=== PATIENT | female | born 1955 | race Caucasian/White ===

== ENCOUNTER 2017-09-28 13:34 | Inpatient (IN) | payer BC ==
[~2017-09-28] VITALS: Ht 165.1 cm; Wt 48.7 kg
[2017-09-28 19:38] VITALS: Ht 165.1 cm; Wt 48.7 kg
[2017-09-28 19:42] VITALS: BP 134/70; PULSE 130; RESP 20
[2017-09-28] MEDS ORDERED: VANCOMYCIN IV PER PHARMACY XX SCH (20:00)
[2017-09-28] MEDS ORDERED: ONDANSETRON 4 MG INJ IV PRN (20:00)
[2017-09-28] MEDS ORDERED: NACL 0.9% 3 ML SYG IV SCH ×2 (20:00)
[2017-09-28 20:12] VITALS: PULSE 130
[2017-09-28 20:24] LABS: ABNORMAL IP MESSAGE 1; HEMATOCRIT 24.3 % (37.0-47.0); HEMOGLOBIN 8.3 g/dl (12.0-16.0); MEAN CORPUSCULAR HEMOGLOBIN 27.6 pg (29.0-33.0); MEAN CORPUSCULAR HGB CONC 34.2 g/dl (32.0-37.0); MEAN CORPUSCULAR VOLUME 80.7 fl (82.0-101.0); MEAN PLATELET VOLUME 8.4 fl (7.4-10.4); PLATELET COUNT 635 10^3/UL (140-415); RED BLOOD COUNT 3.01 10^6/ul (4.20-5.40); RED CELL DISTRIBUTION WIDTH 14.6 % (11.5-14.5); WHITE BLOOD COUNT 60.8 10^3/ul (4.8-10.8)
[2017-09-28 20:29] VITALS: BP 134/70; RESP 18
[2017-09-28 20:38] LABS: POSITIVE DIFF @See below
[2017-09-28 20:41] LABS: ALBUMIN 2.3 g/dl (3.3-4.9); ALBUMIN/GLOBULIN RATIO 0.53; BILIRUBIN,INDIRECT 0.1 mg/dl (0-1.1); BILIRUBIN,TOTAL 0.1 mg/dl (0.2-1.3); CALCIUM 7.6 mg/dl (8.4-10.2); CREATININE 0.68 mg/dl (0.44-1.00); MAGNESIUM 1.5 mg/dl (1.7-2.5); PHOSPHORUS 3.7 mg/dl (2.5-4.9); TOTAL PROTEIN 6.6 g/dl (6.1-8.1)
[2017-09-28 20:55] LABS: MONOCYTES % (M) 2 % (0-11); PLATELET ESTIMATE INCREASED
[2017-09-28] MEDS ORDERED: CEFEPIME 1GM/50 ML (PMX) 50 ML IVPB SCH (21:00)
[2017-09-28 21:17] LABS: AADO2 Arterial 56.2 mmHg (7.0-24.0); Arterial COHb 0.2 % (0.0-3.0); Arterial Fraction of Oxyhgb 93.6 % (93.0-99.0); Arterial HCO3 22.7 mmol/L (22.0-26.0); Arterial MetHb 0.1 % (0.0-1.5); Arterial Total Hemglobin 9.6 g/dl (12.0-18.0); MODE ROOM AIR
[2017-09-28] MEDS ORDERED: POTASSIUM CHLORIDE 50 ML IVPB SCH (21:30)
[2017-09-28] MEDS: SOD CHLORIDE 0.9% 1,000 ML IV SCH (21:49)
[2017-09-28] MEDS ORDERED: VANCOMYCIN 1 GM in NS 250 ML IVPB SCH (22:00)
[2017-09-28] MEDS: POTASSIUM CHLORIDE 50 ML IVPB SCH (22:51)
[2017-09-28] MEDS: MEROPENEM 500MG/50 ML (PMX) 50 ML IVPB SCH (22:52)
[2017-09-29] VITALS (13 sets, daily range): BP systolic 119–126; BP diastolic 67–79; PULSE 97–165; RESP 18–20
[2017-09-29] MEDS: POTASSIUM CHLORIDE 50 ML IVPB SCH ×5 (00:03→03:59)
[2017-09-29] MEDS: MEROPENEM 500MG/50 ML (PMX) 50 ML IVPB SCH ×3 (05:34→21:38)
[2017-09-29] MEDS: SOD CHLORIDE 0.9% 1,000 ML IV SCH ×2 (05:37→15:21)
--- NOTE | 2017-09-29 07:34 | HP ---
Date/Time of Note Date/Time of Note DATE: 09/29/17 TIME: 07:31 Assessment/Plan VTE Prophylaxis VTE Prophylaxis Intervention: heparin Lines/Catheters IV Catheter Type (from Nrs): Central Line Central line still needed: Yes Urinary Cath still in place: No Assessment/Plan Assessment/Plan 62-year-old female with a history of hepatitis C, heroin abuse transferred from an outside hospital for sepsis, secondary to lower extremity wound. Patient has also been lethargic. PLAN IV antibiotic Follow-up culture results Lower extremity Doppler ultrasound to evaluate for DVT ID consult Will order a head CT given lethargy. Will check urine toxicology. 12-lead EKG given tachycardia Check ferritin, iron and FOBT to workup anemia Correct electrolytes as needed HPI/ROS Admit Date/Time Admit Date/Time Sep 28, 2017 at 18:48 Hx of Present Illness This is a 62-year-old female with a history of hepatitis C and heroin abuse who initially presented on outside hospital for lower extremity swelling and wound. She was transferred to [facility] for insurance reasons. Patient is currently lethargic and as such she is not able to provide appropriate history. While she was at the outside hospital she had a WBC of 38, 000. Checked labs here which showed a WBC of almost 61,000 with no bands, potassium 3, sodium 133, platelets 635, hemoglobin 8.3. She has been tachycardic with a heart rate as high as 130. On physical examination she has an open with ulcer on her right steven. Left lower extremity is swollen and erythematous. There is also a well-healed surgical scar on her left knee. She also has old dried wound on her left thumb. PMH/Family/Social Social History Smoking Status: Current every day smoker Exam/Review of Systems Vital Signs Vitals Vital Signs Date Time Temp Pulse Resp B/P Pulse Ox O2 Delivery O2 Flow Rate FiO2 09/29/17 04:26 98.5 112 18 122/72 96 09/28/17 19:42 Room Air Intake and Output 09/28/17 09/28/17 09/29/17 15:00 23:00 07:00 Intake Total 610 ml 930 ml Balance 610 ml 930 ml Exam Constitutional: other (Lethargic. Eyes closed.) Head: atraumatic, normocephalic ENMT: other (Poor dentition) Respiratory: clear to auscultation Cardiovascular: other (Tachycardic with regular rhythm) Gastrointestinal: soft Extremities: other (There is an open ulcer on the right steven with a yellowish pus. Left lower extremity is swollen and is erythematous) Neurological: lethargic Labs Result Diagram: 09/28/17201509/28/172015 Medications Medications Current Medications Sodium Chloride (NS) 1,000 ml @ 100 mls/hr Q10H IV Last administered on 05:37; Admin Dose 100 MLS/HR; Start 09/28/17 at 19:48 Ondansetron HCl 4 mg 4 mg Q6H PRN IV NAUSEA AND/OR VOMITING; Start 09/28/17 at 20:00 Vancomycin HCl 100 ml @ 100 mls/hr Q12H IVPB ; Start 09/29/17 at 10:00 Meropenem/Sodium Chloride (Merrem 500mg/50 ml(Pmx)) 50 ml @ 100 mls/hr Q8 IVPB Last administered on 09/29/17 05:34; Admin Dose 100 MLS/HR; Start 09/28/17 at 22:00 Influenza Virus Vaccine (Fluzone) 0.5 ml ONCE ONCE IM* ; Start 09/30/17 at 09: 00; Stop 09/30/17 at 09:01 IMMANUEL HOYT MD Sep 29, 2017 07:34
--- NOTE | 2017-09-29 08:22 | RADRPT ---
PROCEDURE: US bilateral lower extremity veins. CLINICAL INDICATION: Bilateral leg pain and swelling. TECHNIQUE: Multiple longitudinal and transverse images of the bilateral lower extremity veins were obtained with parker scale and color Doppler imaging. The common femoral vein, femoral vein, and popl iteal vein were evaluated. 2D grayscale measurements with compression sonography, color Doppler, and pulsed Doppler with augmentation. COMPARISON: No prior studies are available for comparison. FINDINGS: The bilateral common femoral, femoral and popliteal veins are normally compressible throughout. Col or flow demonstrates normal filling of the vessels. Normal waveforms are visualized and there is no rmal response to augmentation. IMPRESSION: 1. No evidence of deep vein thrombosis involving either lower extremity. RPTAT: QQ .Candido Awad MD, MD Date Time Electronically viewed and signed by .Candido Awad MD, on 09/29/2017 08:21 .R/
[2017-09-29] MEDS ORDERED: SOD CHLORIDE 0.9% 1,000 ML IV ONE (09:00)
[2017-09-29 09:03] LABS: TOTAL IRON BINDING CAPACITY 140 ug/dl (241-421)
[2017-09-29] MEDS: VANCOMYCIN 500MG/NS (PMX) 100 ML IVPB SCH ×2 (09:05→21:37)
[2017-09-29 09:11] LABS: IRON < 10 ug/dl (35-150)
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
--- NOTE | 2017-09-29 13:10 | RADRPT ---
PROCEDURE: CT Brain without contrast. CLINICAL INDICATION: Acute mental status changes TECHNIQUE: A CT of the brain was performed on a [employer] CT scanner utilizing axial imaging f rom the skull base through the vertex without IV contrast. Multiplanar reformatted images were made . Images were reviewed on a PACS workstation. The CTDIvol is 44.46 mGy and the DLP is 720.23 mGycm . DICOM images are available. One of the following 3 dose reduction techniques were used during this CT examination: 1) Automated exposure control 2) Adjustment of the mA +/- kV according to patient size or 3) Use of iterative reconstruction technique COMPARISON: None available FINDINGS: There is no intracranial hemorrhage, mass effect, or midline shift. No extra-axial fluid collection is seen. The ventricles and sulci are age appropriate. Mild diffuse volume loss is present. Subtle decreased attenuation is present in the bilateral subcortical white matter, centrum semiovale and pe riventricular white matter compatible with mild chronic microvascular ischemic disease. Mild vascula r calcifications are present of the bilateral intracranial internal carotid arteries and the vertebr al arteries. The visualized scalp and calvarium are normal. The bilateral orbits are normal. The bilateral parana chloe sinuses, mastoid air cells and middle ear cavities are clear. IMPRESSION: 1. No evidence of acute intracranial hemorrhage, infarcts, or acute intracranial pathology. 2. Mild chronic microvascular ischemic disease and diffuse volume loss. 3. Mild atherosclerotic vascular disease RPTAT: HDC .Avelina Méndez MD, MD Date Time Electronically viewed and signed by .Avelina Méndez MD, MD on 09/29/2017 13:10 .C/
--- NOTE | 2017-09-29 14:09 | CONS ---
DATE OF ADMISSION: 09/28/2017 DATE OF CONSULTATION: 09/29/2017 TYPE OF CONSULTATION: Infectious Disease. REASON FOR CONSULTATION: Antibiotic management. HISTORY OF PRESENT ILLNESS: This lady is a 62-year-old female who is admitted with probable osteomy elitis and is being seen for antibiotic management. Her past problems include: 1. Hepatitis C. 2. History of heroin abuse. She presented to the outside hospital with lower extremity swelling and wound. Transferred to [facility] and a poor historian. In the outlying hospital, her white count was 38,000 but here it is 60.8, H and H 8.3 and 24.3, platelet count of 35,000. BUN and creatinine 16.0/.68, glucose random 73. Sodium 133, potassium 3.0. She has been tachycardic heart rate 130. She has an open ulcer on the right steven left lower extremity swollen and erythematous. There is a surgical sc ar on the left knee. PAST MEDICAL HISTORY: Operations as outlined. FAMILY HISTORY: Noncontributory. SOCIAL HISTORY: She is a poor historian. She probably smoked in the past. She used IV drugs. Дмитрий mcarthur history is unclear. She was never everyday smoker. ALLERGIES: NONE TO PENICILLIN, SULFA OR FOODS. MEDICATIONS: Per chart. REVIEW OF SYSTEMS: As per HPI. PHYSICAL EXAMINATION: GENERAL: The patient is a chronically ill-appearing female who lethargic, in no acute distress. VITAL SIGNS: Stable. She is afebrile. SKIN: Without generalized rash. HEENT: Poor dentition. NECK: Supple. LYMPH NODES: None palpable. CHEST: Decreased breath sounds at the bases. HEART: Without murmur or gallop. She is tachycardic. ABDOMEN: Soft, nontender, without organosplenomegaly or masses. BACK: She has an open ulceration with lower anterior tibial area with yellowish pus left lower extr emity is swollen and erythematous. RECTAL AND GENITAL: Deferred. NEUROLOGIC: No focal neurological abnormality. She is lethargic. IMPRESSION AND PLAN: Patient was started on vancomycin and meropenem for broad spectrum antibiotic coverage. Her white count was 16,000 is probably a leukemoid reaction, although at this level leuke umair has to be considered as well. She had 94 polys, 4 bands, 3 monocytes, no obvious blasts or trul y juvenile forms. BUN and creatinine 16/0.68. Iron is less than 10%. She is iron deficient. Karissa line phosphatase slightly elevated at 143. Chest x-ray: X-ray of her legs showed no DVTs she has C . difficile ordered because of her markedly elevated white count. She has stool cultures, wound cul tures, no blood cultures noted toe going to do 2 sets of blood cultures. As noted, the wound cultur es were done. I will dictate my findings to the hospitalist. I would recommend also hematology/onc ology evaluation. Dictated By: KULWANT RIVERA MD, JD/TENNILLE Conf#: [id number] DID#: [id number]
[2017-09-29 15:35] LABS: ADD UMIC NO; UR ASCORBIC ACID NEGATIVE (NEGATIVE); UR BILIRUBIN (Dip) NEGATIVE (NEGATIVE); UR BLOOD (Dip) NEGATIVE (NEGATIVE); UR CLARITY CLEAR (CLEAR); UR COLOR YELLOW (YELLOW); UR GLUCOSE (Dip) NEGATIVE (NEGATIVE); UR KETONES (Dip) 1+ mg/dL (NEGATIVE); UR LEUKOCYTE ESTERASE (Dip) NEGATIVE Leu/ul (NEGATIVE); UR NITRITE (Dip) NEGATIVE (NEGATIVE); UR SPECIFIC GRAVITY (Dip) 1.017 (1.003-1.030); UR TOTAL PROTEIN (Dip) NEGATIVE (NEGATIVE); UR UROBILINOGEN (Dip) 1+ mg/dL (NEGATIVE)
[2017-09-29 15:57] LABS: BARBITURATES Negative (NEGATIVE); BENZODIAZEPINES Negative (NEGATIVE); CANNABINOIDS Negative (NEGATIVE); COCAINE Negative (NEGATIVE); OPIATES Positive (NEGATIVE)
--- NOTE | 2017-09-29 16:11 | RADRPT ---
Vent Rate: 93 bpm RR Interval: 0 msec NC Interval: 140 msec QRS Duration: 84 msec QT Interval: 374 msec QTC Interval: 465 msec P-R-T [place]: 61 - -22 - 115 degrees Sinus rhythm with sinus arrhythmia with occasional premature ventricular complexes ST amp; T wave abnormality, consider lateral ischemia Prolonged QT Abnormal ECG Electronically Signed By: Perry Vicente [id number]
[2017-09-29] MEDS ORDERED: PENDING SANTYL ORDER FOR WOUND CARE XX PRN (16:30)
[2017-09-29] MEDS: FAMOTIDINE 20 MG INJ IV SCH (16:57)
[2017-09-29] MEDS: POTASSIUM CHLORIDE 20 MEQ POWDER FOR ORAL SOLN PO SCH (16:57)
[2017-09-29] MEDS ORDERED: COLLAGENASE 30 GM TUBE TOP PRN (17:00)
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
[2017-09-30] VITALS (11 sets, daily range): BP systolic 124–145; BP diastolic 72–90; PULSE 92–109; RESP 18–19
[2017-09-30] MEDS: SOD CHLORIDE 0.9% 1,000 ML IV SCH ×2 (01:48→05:59)
[2017-09-30] MEDS: MEROPENEM 500MG/50 ML (PMX) 50 ML IVPB SCH ×2 (05:58→14:18)
[2017-09-30] MEDS ORDERED: INFLUENZA VIRUS VACCINE 0.5 ML (DISPENSING) IM* ONE (09:00)
[2017-09-30] MEDS ORDERED: COLLAGENASE 30 GM TUBE TOP SCH (09:00)
[2017-09-30] MEDS: FAMOTIDINE 20 MG INJ IV SCH (09:02)
[2017-09-30] MEDS: COLLAGENASE 30 GM TUBE TOP SCH (09:02)
[2017-09-30] MEDS: POTASSIUM CHLORIDE 20 MEQ POWDER FOR ORAL SOLN PO SCH ×2 (09:02→21:29)
[2017-09-30] MEDS: ENOXAPARIN 40 MG/0.4 ML SYG SC SCH (09:11)
[2017-09-30 09:48] LABS: HAAIG REFLEX REFLEX FILED
[2017-09-30 09:55] LABS: ABNORMAL IP MESSAGE 1; HEMATOCRIT 26.7 % (37.0-47.0); HEMOGLOBIN 8.9 g/dl (12.0-16.0); MEAN CORPUSCULAR HEMOGLOBIN 27.2 pg (29.0-33.0); MEAN CORPUSCULAR HGB CONC 33.3 g/dl (32.0-37.0); MEAN CORPUSCULAR VOLUME 81.7 fl (82.0-101.0); MEAN PLATELET VOLUME 8.6 fl (7.4-10.4); PLATELET COUNT 570 10^3/UL (140-415); RED BLOOD COUNT 3.27 10^6/ul (4.20-5.40); RED CELL DISTRIBUTION WIDTH 15.5 % (11.5-14.5); WHITE BLOOD COUNT 31.1 10^3/ul (4.8-10.8)
[2017-09-30 09:57] LABS: POSITIVE DIFF @See below
[2017-09-30 10:16] LABS: INR 1.11; PROTIME 14.3 Sec (12.2-14.2); PT RATIO 1.1
[2017-09-30 10:17] LABS: PARTIAL THROMBOPLASTIN TIME 47.8 Sec (25.0-35.0)
[2017-09-30 10:27] LABS: ALBUMIN 2.2 g/dl (3.3-4.9); ALBUMIN/GLOBULIN RATIO 0.51; BILIRUBIN,INDIRECT 0.1 mg/dl (0-1.1); BILIRUBIN,TOTAL 0.1 mg/dl (0.2-1.3); CALCIUM 7.6 mg/dl (8.4-10.2); CREATININE 0.53 mg/dl (0.44-1.00); MAGNESIUM 1.3 mg/dl (1.7-2.5); PHOSPHORUS 3.2 mg/dl (2.5-4.9); TOTAL PROTEIN 6.5 g/dl (6.1-8.1)
[2017-09-30 10:31] LABS: POTASSIUM 2.8 mmol/L (3.5-5.1)
[2017-09-30] MEDS: VANCOMYCIN 500MG/NS (PMX) 100 ML IVPB SCH (10:38)
[2017-09-30 10:43] LABS: TRIIODOTHYRONINE 0.46 ng/ml (0.97-1.69)
[2017-09-30 10:49] LABS: ANISOCYTOSIS 1+ (0-0); MONOCYTES % (M) 1 % (0-11); MYELOCYTES % (M) 1 % (0-0); PLATELET ESTIMATE INCREASED; POIKILOCYTOSIS 2+ (0-0); POLYCHROMASIA 3+ (0-0)
[2017-09-30 11:00] LABS: HEPATITIS B CORE ANTIBODY REACTIVE (NEGATIVE)
[2017-09-30 11:14] LABS: THYROID STIMULATING HORMONE 1.35 MIU/L (0.465-4.680)
[2017-09-30 11:17] LABS: FOLATE 6.5 ng/ml (2.8-20.0)
[2017-09-30] MEDS ORDERED: POTASSIUM CHLORIDE 250 ML IVPB ONE (12:00)
[2017-09-30] MEDS ORDERED: ASCORBIC ACID 500 MG TAB.CHEW PO SCH (17:00)
[2017-09-30] MEDS ORDERED: MAGNESIUM SULFATE 3 GM in DEXTROSE 5% 100 ML IVPB ONE (17:00)
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
[2017-09-30] MEDS: VANCOMYCIN 1 GM in NS 250 ML IVPB SCH (17:35)
[2017-09-30] MEDS ORDERED: LIDOCAINE 1% (MPF) 5 ML VIAL SC ONE (19:30)
--- NOTE | 2017-09-30 20:18 | RADRPT ---
PROCEDURE: Chest xray. CLINICAL INDICATION: Central line pulled TECHNIQUE: A portable semiupright AP view of the chest was obtained. COMPARISON: None available. FINDINGS: The cardiomediastinal silhouette is within normal limits. The lungs are well expanded and show norm al vascularity. There is mild left basilar subsegmental atelectasis. The right lung is clear. No ple ural effusion or pneumothorax is identified. There is partial fusion of the right sixth and seventh posterior ribs. IMPRESSION: Mild left basilar subsegmental atelectasis. Otherwise, no acute intrathoracic abnormality. RPTAT: HKMK .Lotus Saab MD, MD Date Time Electronically viewed and signed by .Lotus Saab MD, on 09/30/2017 20:17 .K/
[2017-09-30] MEDS ORDERED: METHADONE 10 MG TAB PO ONE (20:41)
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
[2017-10-01] VITALS (11 sets, daily range): BP systolic 106–128; BP diastolic 60–75; PULSE 93–109; RESP 16–20
[2017-10-01] MEDS: MEROPENEM 500MG/50 ML (PMX) 50 ML IVPB SCH ×3 (01:09→13:20)
[2017-10-01] MEDS: SOD CHLORIDE 0.9% 1,000 ML IV SCH ×2 (02:34→06:17)
[2017-10-01] MEDS: VANCOMYCIN 1 GM in NS 250 ML IVPB SCH (06:16)
[2017-10-01 06:51] LABS: BASOPHIL # 0.1 10^3/ul (0.0-0.1); BASOPHILS % 0.3 % (0.0-2.0); EOSINOPHILS # 0.1 10^3/ul (0.0-0.5); EOSINOPHILS % 0.4 % (0.0-7.0); HEMATOCRIT 25.7 % (37.0-47.0); HEMOGLOBIN 8.3 g/dl (12.0-16.0); LYMPHOCYTES # 2.4 10^3/ul (0.8-2.9); LYMPHOCYTES % 12.2 % (15.0-51.0); MEAN CORPUSCULAR HGB CONC 32.3 g/dl (32.0-37.0); MEAN CORPUSCULAR VOLUME 83.7 fl (82.0-101.0); MEAN PLATELET VOLUME 8.6 fl (7.4-10.4); NEUTROPHIL # 15.7 10^3/ul (1.6-7.5); NEUTROPHILS % 79.9 % (39.0-77.0); PLATELET COUNT 464 10^3/UL (140-415); RED BLOOD COUNT 3.07 10^6/ul (4.20-5.40); RED CELL DISTRIBUTION WIDTH 15.7 % (11.5-14.5); WHITE BLOOD COUNT 19.7 10^3/ul (4.8-10.8)
[2017-10-01 07:24] LABS: CREATININE 0.5 mg/dl (0.44-1.00)
[2017-10-01 07:26] LABS: CALCIUM 7.5 mg/dl (8.4-10.2); CREATININE 0.49 mg/dl (0.44-1.00); MAGNESIUM 1.7 mg/dl (1.7-2.5); PHOSPHORUS 3.7 mg/dl (2.5-4.9); POTASSIUM 3.9 mmol/L (3.5-5.1)
[2017-10-01] MEDS: POTASSIUM CHLORIDE 20 MEQ POWDER FOR ORAL SOLN PO SCH ×3 (08:34→20:24)
[2017-10-01] MEDS: METHADONE 10 MG TAB PO SCH (08:35)
[2017-10-01] MEDS: ASCORBIC ACID 500 MG TAB PO SCH (08:35)
[2017-10-01] MEDS: ZINC SULFATE 220 MG CAP PO SCH (08:35)
[2017-10-01] MEDS: FAMOTIDINE 20 MG INJ IV SCH (08:35)
[2017-10-01] MEDS: COLLAGENASE 30 GM TUBE TOP SCH (08:36)
[2017-10-01] MEDS: ENOXAPARIN 40 MG/0.4 ML SYG SC SCH (08:50)
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
[2017-10-01] MEDS: AMPICILLIN/SULB 3 GM/NS (PMX) 100 ML IVPB SCH ×2 (17:53→23:37)
[2017-10-01] MEDS: CIPROFLOXACIN 400MG/D5W 200 ML IVPB SCH (20:24)
[2017-10-02 02:33] VITALS: BP 117/69; RESP 20
[2017-10-02] MEDS: AMPICILLIN/SULB 3 GM/NS (PMX) 100 ML IVPB SCH ×3 (05:29→19:54)
[2017-10-02 06:36] LABS: ABNORMAL IP MESSAGE 1; HEMATOCRIT 26.3 % (37.0-47.0); HEMOGLOBIN 8.3 g/dl (12.0-16.0); MEAN CORPUSCULAR HEMOGLOBIN 26.6 pg (29.0-33.0); MEAN CORPUSCULAR HGB CONC 31.6 g/dl (32.0-37.0); MEAN CORPUSCULAR VOLUME 84.3 fl (82.0-101.0); MEAN PLATELET VOLUME 8.7 fl (7.4-10.4); PLATELET COUNT 515 10^3/UL (140-415); RED BLOOD COUNT 3.12 10^6/ul (4.20-5.40); RED CELL DISTRIBUTION WIDTH 15.8 % (11.5-14.5); WHITE BLOOD COUNT 28.6 10^3/ul (4.8-10.8)
[2017-10-02 06:43] LABS: POSITIVE DIFF @See below
[2017-10-02 06:47] LABS: INR 1.16; PROTIME 14.9 Sec (12.2-14.2); PT RATIO 1.2
[2017-10-02 06:57] LABS: ALBUMIN 2.3 g/dl (3.3-4.9); ALBUMIN/GLOBULIN RATIO 0.48; BILIRUBIN,INDIRECT 0.1 mg/dl (0-1.1); BILIRUBIN,TOTAL 0.1 mg/dl (0.2-1.3); CALCIUM 7.5 mg/dl (8.4-10.2); CREATININE 0.55 mg/dl (0.44-1.00); MAGNESIUM 1.4 mg/dl (1.7-2.5); POTASSIUM 3.7 mmol/L (3.5-5.1)
--- NOTE | 2017-10-02 06:59 | PQ ---
Date/Time of Note Date/Time of Note DATE: 10/02/17 TIME: 06:46 Physician Query Documentation Clarification A review of the medical record found a need for documentation clarification. Nutrition consult ---" Mild protein carmelo. malnutrition", cachexia BMI = 17.9 Albumiun = 2.2 Please clarify if you concur with the above diagnosis being treated. To facilitate accurate and complete coding, please shannan ( x ) the suspected diagnosis that apply: ( ) yes, mild protein calorie malnutrition ( ) no ( ) others Please provide your response by clicking edit document, making your choice ( x ), click ok/save and finally click sign. You may also document your response on your progress notes. Thank you for your time. With appreciation, Desiree Spence RN, BSN, CCS, CCDS Clinical Integrity Manager Health Information Management, CDI and Coding Services [phone] Room # 1525 - [address]~ [id number] DESIREE SPENCE Oct 02, 2017 06:59
[2017-10-02 07:43] VITALS: BP 115/77; RESP 20
[2017-10-02] MEDS: COLLAGENASE 30 GM TUBE TOP SCH (09:00)
[2017-10-02] MEDS: POTASSIUM CHLORIDE 20 MEQ POWDER FOR ORAL SOLN PO SCH ×3 (09:02→21:19)
[2017-10-02] MEDS: ZINC SULFATE 220 MG CAP PO SCH (09:03)
[2017-10-02] MEDS: FAMOTIDINE 20 MG TAB PO SCH (09:03)
[2017-10-02] MEDS: ASCORBIC ACID 500 MG TAB PO SCH (09:03)
[2017-10-02 09:05] LABS: ANISOCYTOSIS 1+ (0-0); GIANT THROMBO% (M) 1 % (0-0); HYPOCHROMASIA 2+ (0-0); MONOCYTES % (M) 4 % (0-11); MYELOCYTES % (M) 1 % (0-0); PLATELET ESTIMATE NORMAL; POLYCHROMASIA 3+ (0-0)
[2017-10-02] MEDS: CIPROFLOXACIN 400MG/D5W 200 ML IVPB SCH ×2 (09:08→21:20)
[2017-10-02] MEDS: METHADONE 10 MG TAB PO SCH (09:23)
[2017-10-02] MEDS: ENOXAPARIN 40 MG/0.4 ML SYG SC SCH (09:37)
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
[2017-10-02] MEDS: SOD FERRIC GLUC COMPLX 125 MG in SOD CHLORIDE 0.9% 100 ML IVPB SCH ×2 (12:00→14:02)
[2017-10-02 13:51] VITALS: BP 95/64; RESP 20
[2017-10-02] MEDS ORDERED: VANCOMYCIN IV PER PHARMACY XX SCH (15:00)
[2017-10-02] MEDS: VANCOMYCIN 1 GM in NS 250 ML IVPB SCH ×2 (15:30→17:14)
--- NOTE | 2017-10-02 15:56 | RADRPT ---
PROCEDURE: Ultrasound guidance for placement of needle in right upper extremity vein. CLINICAL INDICATION: Venous access. TECHNIQUE: Limited sonography of the right upper extremity was performed. Ultrasound images were recorded and stored in the patient's medical record. COMPARISON: None. FINDINGS: The ultrasound images demonstrate a patent right upper extremity vein. The PICC line was inserted b y the PICC line nurse. IMPRESSION: 1. Ultrasound guidance for a needle placement in a right upper extremity vein. 2. The visualized right upper extremity vein is patent. RPTAT: QQ .Candido Awad MD, MD Date Time Electronically viewed and signed by .Candido Awad MD, MD on 10/02/2017 15:55 .R/
--- NOTE | 2017-10-02 16:07 | RADRPT ---
PROCEDURE: XR Chest. CLINICAL INDICATION: Check PICC line position. TECHNIQUE: Single frontal view. COMPARISON: 09/30/2017. FINDINGS: There is a right arm PICC line with the tip in the lower superior vena cava. The lungs are clear. The heart size is normal. There is no pleural effusion or pneumothorax. There is thoracic scoliosis convex right. IMPRESSION: 1. Right arm PICC line tip in satisfactory position. 2. Thoracic scoliosis convex right. 3. Otherwise unremarkable chest radiograph. RPTAT: QQ .Candido Awad MD, MD Date Time Electronically viewed and signed by .Candido Awad MD, MD on 10/02/2017 16:07 .R/
[2017-10-02] MEDS ORDERED: SOD CHLORIDE 0.9% 100 ML ONE (17:21)
--- NOTE | 2017-10-02 18:00 | RADRPT ---
PROCEDURE: Left upper extremity venous ultrasound CLINICAL INDICATION: Left arm pain and swelling. Deep venous thrombosis. TECHNIQUE: Montgomery scale, color doppler, spectral doppler ultrasound imaging of the venous system of the left upper extremity. Augmentation maneuvers were utilized. COMPARISON: No prior studies are available for comparison. FINDINGS: LEFT: Internal jugular vein: Nonocclusive mobile thrombus is present. Subclavian vein: Patent. Axillary vein: Patent. Brachial vein: Patent. Basilic vein: Patent. Cephalic vein: Patent. Radial vein: Patent. Ulnar vein: Patent. IMPRESSION: Nonocclusive mobile deep venous thrombus within the left internal jugular vein. Results were discussed with Nurse Hicks by telephone at 10/02/2017 5:58:[address] James guallpa RPTAT: AADD .James Vitale MD, MD Date Time Electronically viewed and signed by .James Vitale MD, on 10/02/2017 18:00 .B/
[2017-10-02 20:00] VITALS: BP 101/64; RESP 20
[2017-10-02] MEDS: ENOXAPARIN 100 MG/ML SYG SC SCH (21:23)
[2017-10-03] MEDS: AMPICILLIN/SULB 3 GM/NS (PMX) 100 ML IVPB SCH ×5 (00:50→23:13)
[2017-10-03 02:00] VITALS: BP 113/68; RESP 20
[2017-10-03] MEDS: VANCOMYCIN 1 GM in NS 250 ML IVPB SCH ×2 (03:45→17:19)
--- NOTE | 2017-10-03 06:06 | PN ---
DATE: 10/02/2017 SUBJECTIVE: The patient is awake, looks comfortable. Afebrile. WBC today 28.6, H and H 8.3 and 26 .2, platelets , neutrophils 90, bands 2. BUN 8, creatinine 0.55. MICROBIOLOGY: Right leg wound culture growing Strep pyogenes, Corynebacterium species and Pseudomon as aeruginosa, final sensitivities pending. Blood cultures remain negative. Stool for C. diff nega tive. ANTIMICROBIALS: The patient is on IV Cipro and Unasyn, status post vancomycin and meropenem. PHYSICAL EXAMINATION: GENERAL: This is a chronically ill-appearing, cachectic, elderly woman who is awake, in no distress . HEENT: Head atraumatic, normocephalic. Sclerae anicteric. Buccal mucosa dry. NECK: Supple. CHEST: Rise symmetrical. Breath sounds diminished to bases. HEART: S1, S2. ABDOMEN: Soft. Bowel tones present. EXTREMITIES: Without cyanosis. ASSESSMENT: 1. Sepsis with persistent leukocytosis, status post fevers, tachycardia and encephalopathy. 2. Multiple infected wounds with cultures growing multiple bacteria. 3. History of IV drug use 4. Chronic obstructive pulmonary disease. 5. Cachexia. 6. History of hepatitis C virus. PLAN: Clinically stable, pending final sensitivities. We are going to add vancomycin back to cover Corynebacterium species. Continue local wound care. Consider surgical evaluation for possible cristina ridement. Dictated By: TELMA DUBON REGIONAL WILDLIFE AGENT for KULWANT UNDERWOOD/TENNILLE Conf#: [id number] DID#: [id number]
[2017-10-03 07:42] VITALS: BP 141/86; RESP 20
[2017-10-03] MEDS: CIPROFLOXACIN 400MG/D5W 200 ML IVPB SCH ×2 (08:55→20:43)
[2017-10-03] MEDS: FAMOTIDINE 20 MG TAB PO SCH (08:55)
[2017-10-03] MEDS: ZINC SULFATE 220 MG CAP PO SCH (08:55)
[2017-10-03] MEDS: ASCORBIC ACID 500 MG TAB PO SCH (08:55)
[2017-10-03] MEDS: METHADONE 10 MG TAB PO SCH (08:55)
[2017-10-03] MEDS: POTASSIUM CHLORIDE 20 MEQ POWDER FOR ORAL SOLN PO SCH ×3 (08:57→20:44)
[2017-10-03] MEDS: COLLAGENASE 30 GM TUBE TOP SCH (09:06)
[2017-10-03] MEDS: ENOXAPARIN 100 MG/ML SYG SC SCH ×2 (09:06→20:48)
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
--- NOTE | 2017-10-03 13:20 | CONS ---
DATE OF ADMISSION: 09/28/2017 DATE OF CONSULTATION: 10/03/2017 VASCULAR SURGERY CONSULTATION Dear Doctors: Ms. Felder is a 62-year-old female who presented to [facility] secondary to right lower extremity swelling, pain and lethargic. It seems that the patient upon admission, her white blood cell count was quite high and has been treated appropriately since then. Vascular surgery consultation was obtained for lower extremity ulcer and atherosclerosis and further new finding of left internal jugular vein nonocclusive thrombus. At the moment, the patient denies shortness of breath, chest pain, nausea, vomiting, fever or chills. Speaking with the patient, she mentions that she had broken her left lower extremity tibia in which she had undergone procedure for that and during her recovery it seems that the patient had fallen on her right steven about a month ago and slowly began to have an ulcer that worsened over the period of time.Further the patient was found to have a nonocclusive DVT. PAST MEDICAL HISTORY: Entails hepatitis C, heroin abuse, noncompliance, bilateral lower extremity atherosclerosis, smoker. PAST SURGICAL HISTORY: None has been reported per patient other than left lower extremity ORIF. SOCIAL HISTORY: Current smoker, IV drug abuser and drinks alcohol. FAMILY HISTORY: Positive for hypertension. PHYSICAL EXAMINATION: GENERAL: She is alert and oriented x3. HEENT: Normocephalic, atraumatic. Mucosa moist. Temporal wasting. NECK: Supple, no carotid bruit. PULMONARY: Clear to auscultation bilaterally. No crackles. CARDIOVASCULAR: S1, S2 present. No murmurs. ABDOMEN: Soft, nontender, nondistended. Bowel sounds positive. RIGHT LOWER EXTREMITY: Palpable femoral pulse, faint pedal pulse. Motor, sensory intact. Cap refill 3 seconds. There is a steven ulcer with necrotic fibrinous tissue and eschar with surrounding erythema measuring about 6 x 2 x 0.5 cm depth. LEFT LOWER EXTREMITY: Palpable femoral pulse, faint pedal pulse. Motor, sensory intact. Cap refill 3 seconds. ASSESSMENT AND PLAN: Bilateral lower extremity atherosclerosis with right lower extremity ulcer: It seems the patient has some component of atherosclerotic disease; however, the patient does have some faint pedal pulses in which my suspicion would be low for having a nonhealing wound as a result of her atherosclerotic disease. We will plan to obtain noninvasive vascular studies to further evaluate her infrainguinal atherosclerotic disease. It seems the patient's noncompliance and not coming to the hospital and receiving medical care may be the main issue of her ulceration that has worsened over the past month. Likely the patient will require debridement and will evaluate if any vascular intervention would be needed. Left IJ DVT:-Recommend for the patient to be anticoagulated with any PO regimen she can tolerate, be compliant and be covered by her insurance. At the moment keep her on IV anticoagulation prior to her possible debridement of the RLE. Continue with antibiotics. Discussed with the patient regarding smoking cessation and IV drug abuse cessation Optimize vascular status (BP meds, diet, nutrition, exercise, sugar control, antiplatelets). Thank you for allowing me to partake in the care of your patient. Please call with any questions. Dictated By: OSEAS WOODWARD/T[place]IL[place] Conf#: [id number] DID#: [id number] CC: GRISELDA BARON MD;*EndCC* MTDD
[2017-10-03 13:38] VITALS: BP 110/70; RESP 20
[2017-10-03] MEDS: SOD FERRIC GLUC COMPLX 125 MG in SOD CHLORIDE 0.9% 100 ML IVPB SCH (14:27)
--- NOTE | 2017-10-03 16:06 | RADRPT ---
PROCEDURE: US Lower extremity arterial. CLINICAL INDICATION: Nonhealing right lower extremity ulcer. TECHNIQUE: Multiple sonographic images of the bilateral lower extremity arteries were obtained uti lizing grayscale, color-flow and doppler imaging. The images were reviewed on a PACS workstation. COMPARISON: None. FINDINGS: Velocities and waveforms were obtained as described below. RIGHT LEG: Right common femoral artery: 61 cm/s; triphasic waveforms Right proximal superficial femoral artery: 87 cm/s; triphasic waveforms Right mid superficial femoral artery: 67 cm/s; triphasic waveforms Right distal superficial femoral artery: 69 cm/s; triphasic waveforms Right popliteal artery: 51 cm/s; triphasic waveforms Right posterior tibial artery: 51 cm/s; triphasic waveforms Right dorsalis pedis artery: 57 cm/s; triphasic waveforms Right MERLYN: 1.1 LEFT LEG: Left common femoral artery: 76 cm/s; triphasic waveforms Left proximal superficial femoral artery: 71 cm/s; triphasic waveforms Left mid superficial femoral artery: 79 cm/s; triphasic waveforms Left distal superficial femoral artery: 56 cm/s; triphasic waveforms Left popliteal artery: 46 cm/s; triphasic waveforms Left posterior tibial artery: 54 cm/s; triphasic waveforms Left dorsalis pedis artery: 95 cm/s; triphasic waveforms Left MERLYN: 1.1 IMPRESSION: Unremarkable bilateral lower extremity arterial Doppler ultrasound. RPTAT: GG .Valentin Roman MD, MD Date Time Electronically viewed and signed by .Valentin Roman MD, MD on 10/03/2017 16:06 .Leeann/
--- NOTE | 2017-10-03 17:09 | PN ---
DATE: 10/03/2017 SUBJECTIVE: No events overnight. The patient is awake, looks comfortable, no fevers overnight. No labs this morning. MICROBIOLOGY: Right leg culture growing Strep pyogenes Corynebacterium species and Pseudomonas aeruginosa. Left buttock wound culture growing Strep pyogenes. Blood culture had been negative. ANTIMICROBIALS: The patient is on: 1. IV vancomycin. 2. Unasyn 3. Ciprofloxacin. PHYSICAL EXAMINATION: GENERAL: This is a fragile, well-developed, elderly woman who is awake, in no distress. HEENT: Head atraumatic, normocephalic. Sclerae anicteric. Buccal mucosa dry. NECK: Supple. CHEST: Rise symmetrical. Breath sounds diminished to bases. HEART: S1, S2. ABDOMEN: Soft, bowel tones present. EXTREMITIES: Without cyanosis. Bilateral lower extremities: Chronic wounds are more on the right. Left leg with an area of fluctuance below knee. ASSESSMENT: 1. Systemic inflammatory response syndrome with persistent leukocytosis, status post sepsis with fevers, tachycardia and encephalopathy. 2. Multiple infected wounds, questionable left leg abscess. 3. Chronic obstructive pulmonary disease. 4. Cachexia. 5. History of IV drug abuse. PLAN: The patient remains stable. She is on appropriate antibiotics. She is being seen by vascular team. Consider podiatry evaluation to evaluate for possible left leg abscess and recommendation in regards to the drainage. Follow labs in a.m. Dictated By: TELMA DUBON WIPER BLENDER for KULWANT RIVERA MD NI/NTS Conf#: [id number] DID#: [id number] CC: GRISELDA BARON MD;*EndCC* MTDD
[2017-10-03 19:30] VITALS: BP 115/71; RESP 16
--- NOTE | 2017-10-03 23:53 | CONS ---
Date/Time of Note Date/Time of Note DATE: 10/03/17 TIME: 23:53 Assessment/Plan Assessment/Plan Problems: (1) Leg wound, right Status: Acute Qualifiers: Qualified Code: S81.801A - Wound of right lower extremity, initial encounter (2) History of hepatitis B (3) Homelessness Status: Chronic (4) Decubitus ulcer of left heel, stage 2 Additional Assessment/Plan Elevate both legs on pillow so that the heels touch air. Recommendation: vascular surgery evaluation. Change bandages daily. Will follow in house. Thank you again for involving me in the care of this patient. If you have any questions regarding this case, please feel free to contact me at pager: [phone] or reach me at mobile: [phone]. Consultation Date/Type/Reason Admit Date/Time Sep 28, 2017 at 18:48 Date of Consultation: Oct 03, 2017 Type of Consultation: Foot and ankle surgery Hx of Present Illness Thank you very much for your kind consultation. As you very well know, this is a 62-year-old female with a history of hepatitis C and heroin abuse who initially presented for lower extremity swelling and wound. She was transferred to [facility] for insurance reasons. I was consulted for evaluation of an open ulcer on her right steven. Constitutional: no complaints Eyes: no complaints ENT: no complaints Respiratory: no complaints Cardiovascular: no complaints Past Medical History As per history of present illness. Past Surgical History As per history of present illness. Social History As per history of present illness. Smoking Status: Current every day smoker Exam/Review of Systems Vital Signs Vitals Vital Signs Date Time Temp Pulse Resp B/P Pulse Ox O2 Delivery O2 Flow Rate FiO2 10/03/17 19:30 98.5 60 16 115/71 96 Intake and Output 10/02/17 10/02/17 10/03/17 14:59 22:59 06:59 Intake Total 300 ml 2520 ml 2150 ml Balance 300 ml 2520 ml 2150 ml Exam Patient is in no acute distress laying supine in bed. Right lower leg open wound noted measuring 7 x 4 cm with mild surrounding erythema. No pus noted and no active bleeding. There is edema of the LLE. There is no malodor noted on exam. There is also right heel decubitus ulcer present with no active pus and no bleeding. There is no open wound on the RLE. Non palpable DP and PT pulses bilaterally. Labs reviewed. Results Result Diagram: 10/02/1755110/02/17551 Medications Medications Current Medications Ondansetron HCl (Zofran Inj) 4 mg Q6H PRN IV NAUSEA AND/OR VOMITING; Start at 20:00 Miscellaneous Information (Pending Santyl Order For Wound Care) This patient martin... PRN PRN XX WOUND CARE; Start 09/29/17 at 16:30 Collagenase (Santyl) 1 applic DAILY TOP Last administered on 10/03/17 09:06; Admin Dose 1 APPLIC; Start 09/30/17 at 09:00 Collagenase (Santyl) 1 applic PRN PRN TOP WOUND CARE; Start 09/29/17 at 17:00 Potassium Chloride (Potassium Chloride Pwd/Soln) 40 meq TID PO Last administered on 10/03/17 20:44; Admin Dose 40 MEQ; Start 09/30/17 at 21:00 Zinc Sulfate (Zinc Sulfate) 220 mg DAILY PO Last administered on 10/03/17 08: 55; Admin Dose 220 MG; Start 10/01/17 at 09:00 Methadone HCl (Methadone) 40 mg DAILY PO Last administered on 10/03/17 08:55 ; Admin Dose 40 MG; Start 10/01/17 at 09:00 Ascorbic Acid (Vitamin C) 500 mg DAILY PO Last administered on 10/03/17 08:55 ; Admin Dose 500 MG; Start 10/01/17 at 09:00 Famotidine 20 mg 20 mg DAILY PO Last administered on 10/03/17 08:55; Admin Dose 20 MG; Start 10/02/17 at 09:00 Ampicillin Sodium/ Sulbactam Sodium 100 ml @ 100 mls/hr Q6 IVPB Last administered on 10/03/17 23:13; Admin Dose 100 MLS/HR; Start 10/01/17 at 18: 00 Ciprofloxacin/ Dextrose 200 ml @ 200 mls/hr Q12 IVPB Last administered on 20:43; Admin Dose 200 MLS/HR; Start 10/01/17 at 21:00 Ferric Sodium Gluconate Complex 125 mg/Sodium Chloride 110 ml @ 110 mls/hr Q24H IVPB Last administered on 10/03/17 14:27; Admin Dose 110 MLS/HR; Start 10/02/17 at 12:00; Stop 10/06/17 at 12:59 Vancomycin HCl (Vancocin) 250 ml @ 125 mls/hr Q12H IVPB Last administered on 10/03/17 17:19; Admin Dose 125 MLS/HR; Start 10/02/17 at 15:30 IV Flush (NS 10 ml) 10 ml PRN PRN IV IV PROTOCOL; Start 10/02/17 at 17:30 Enoxaparin Sodium (Lovenox) 50 mg Q12 SC Last administered on 10/03/17 20:48 ; Admin Dose 50 MG; Start 10/02/17 at 21:00 Miscellaneous Information (*Rx Drug Level Order Reminder*) 1 ONCE ONCE XX ; Start 10/04/17 at 02:30; Stop 10/04/17 at 02:31 IMER JAMISON DPM Oct 03, 2017 23:53
[2017-10-04 01:40] VITALS: BP 136/80; RESP 16
[2017-10-04 03:13] LABS: BASOPHIL # 0.1 10^3/ul (0.0-0.1); BASOPHILS % 0.4 % (0.0-2.0); EOSINOPHILS # 0.3 10^3/ul (0.0-0.5); EOSINOPHILS % 1.8 % (0.0-7.0); HEMATOCRIT 23.1 % (37.0-47.0); HEMOGLOBIN 7.3 g/dl (12.0-16.0); LYMPHOCYTES # 2.9 10^3/ul (0.8-2.9); LYMPHOCYTES % 19.2 % (15.0-51.0); MEAN CORPUSCULAR HEMOGLOBIN 26.8 pg (29.0-33.0); MEAN CORPUSCULAR HGB CONC 31.6 g/dl (32.0-37.0); MEAN CORPUSCULAR VOLUME 84.9 fl (82.0-101.0); MEAN PLATELET VOLUME 8.8 fl (7.4-10.4); MONOCYTES % 6.4 % (0.0-11.0); NEUTROPHIL # 10.4 10^3/ul (1.6-7.5); NEUTROPHILS % 69.3 % (39.0-77.0); PLATELET COUNT 513 10^3/UL (140-415); RED BLOOD COUNT 2.72 10^6/ul (4.20-5.40); RED CELL DISTRIBUTION WIDTH 15.6 % (11.5-14.5); WHITE BLOOD COUNT 14.9 10^3/ul (4.8-10.8)
[2017-10-04] MEDS: VANCOMYCIN 1 GM in NS 250 ML IVPB SCH ×2 (03:23→15:20)
[2017-10-04 03:30] LABS: CALCIUM 7.8 mg/dl (8.4-10.2); CREATININE 0.96 mg/dl (0.44-1.00)
[2017-10-04] MEDS: AMPICILLIN/SULB 3 GM/NS (PMX) 100 ML IVPB SCH (05:38)
[2017-10-04 07:27] VITALS: BP 120/58; RESP 18
[2017-10-04] MEDS: POTASSIUM CHLORIDE 20 MEQ POWDER FOR ORAL SOLN PO SCH ×3 (08:59→20:05)
[2017-10-04] MEDS: ASCORBIC ACID 500 MG TAB PO SCH ×2 (08:59→20:05)
[2017-10-04] MEDS: ZINC SULFATE 220 MG CAP PO SCH (08:59)
[2017-10-04] MEDS: FAMOTIDINE 20 MG TAB PO SCH (08:59)
[2017-10-04] MEDS: METHADONE 10 MG TAB PO SCH (08:59)
[2017-10-04] MEDS: CIPROFLOXACIN 400MG/D5W 200 ML IVPB SCH ×2 (09:00→20:04)
--- NOTE | 2017-10-04 09:23 | CONS ---
Date/Time of Note Date/Time of Note DATE: 10/04/17 TIME: 09:19 Assessment/Plan Assessment/Plan Additional Assessment/Plan Patient history of heroin abuse who is currently still using. Presumably obtains her methadone from the [facility] treatment program and states she takes 40 mg daily. I will reinstitute her current methadone dose and follow her very closely I do not believe she is risk of withdrawing from other medications or street drugs. Since patient is homeless consider placement at discharge. Also patient gives a history of driving and she has a [place] driver's license believe at this time her fibrillation should be taken away and department motor vehicle should be contacted. I spoken the case management to follow through thank you Consultation Date/Type/Reason Admit Date/Time Sep 28, 2017 at 18:48 Type of Consultation: Pain management Hx of Present Illness This is an unfortunate 8-year-old female who looks much older than her stated age who was admitted for lower extremity cellulitis. Patient currently does not have pain however I am asked to see patient to follow her for methadone maintenance standpoint. Patient states that she took her last dose of heroin 1 day prior to admission. Patient is a poor historian but she also admits to taking methamphetamines she drinks and she smokes.. States she has been incarcerated at least once in the past. The rest of the past medical history is unclear as patient confabulates and is a poor historian. Social History Smoking Status: Current every day smoker Exam/Review of Systems Vital Signs Vitals Vital Signs Date Time Temp Pulse Resp B/P Pulse Ox O2 Delivery O2 Flow Rate FiO2 10/04/17 07:27 98.3 104 18 120/58 99 Intake and Output 10/03/17 10/03/17 10/04/17 14:59 22:59 06:59 Intake Total 100 ml 2560 ml 910 ml Balance 100 ml 2560 ml 910 ml Exam Psych: confusion Head: No atraumatic, No hematomas, No lacerations, No normocephalic, No other Eyes: No EOMI, No PERRL, No fundi, disc, No icteric, No nl conjunctiva, No nl lids, No nl sclera, No other ENMT: No intubated, No mucosa pink and moist, No nl external ears & nose, No nl lips & teeth, No nl nasal mucosa & septum, No other, No tympanic membranes Neck: No bruits, No jvd, No masses, No non-tender, No nuchal rigidity, No other , No supple, No thyromegaly Respiratory: No clear to auscultation, No congested cough, No crackles/rales, No diminished breath sounds, No intercostal retraction, No labored breathing, No normal air movement, No other, No respirations, No tactile fremitus, No wheezing Cardiovascular: No S3, No S4, No bruits, No diastolic murmur, No edema, No gallop, No irregular rhythm, No jugular venous distention (JVD), No murmurs/ extra sounds, No nl pulses, No other, No regular rate and rhythm, No rub, No systolic murmur Gastrointestinal: No ascites, No bowel sounds, No distended, No firm, No hepatomegaly, No mass, No nl liver, spleen, No non-tender, No other, No rebound or guarding, No soft, No splenomegaly, No surgical scars, No tender Results Result Diagram: 10/04/17 0246 10/04/17 0246 Results 24 hrs Laboratory Tests Test 10/04/17 02:46 10/04/17 07:46 White Blood Count 14.9 #H Red Blood Count 2.72 L Hemoglobin 7.3 L Hematocrit 23.1 L Mean Corpuscular Volume 84.9 Mean Corpuscular Hemoglobin 26.8 L Mean Corpuscular Hemoglobin Concent 31.6 L Red Cell Distribution Width 15.6 H Platelet Count 513 H Mean Platelet Volume 8.8 Neutrophils % 69.3 Lymphocytes % 19.2 Monocytes % 6.4 Eosinophils % 1.8 Basophils % 0.4 Nucleated Red Blood Cells % 0.0 Neutrophils # 10.4 H Lymphocytes # 2.9 Monocytes # 1.0 H Eosinophils # 0.3 Basophils # 0.1 Nucleated Red Blood Cells # 0.0 Sodium Level 135 Potassium Level 4.0 Chloride Level 99 Carbon Dioxide Level 30 Anion Gap 10 Blood Urea Nitrogen 13 Creatinine 0.96 Glucose Level 115 Calcium Level 7.8 L Vancomycin Level Trough 10.9 Lab Scanned Report REFERENCE LAB Medications Medications Current Medications Ondansetron HCl (Zofran Inj) 4 mg Q6H PRN IV NAUSEA AND/OR VOMITING; Start at 20:00 Miscellaneous Information (Pending Santyl Order For Wound Care) This patient martin... PRN PRN XX WOUND CARE; Start 09/29/17 at 16:30 Collagenase (Santyl) 1 applic DAILY TOP Last administered on 10/03/17 09:06; Admin Dose 1 APPLIC; Start 09/30/17 at 09:00 Collagenase (Santyl) 1 applic PRN PRN TOP WOUND CARE; Start 09/29/17 at 17:00 Potassium Chloride (Potassium Chloride Pwd/Soln) 40 meq TID PO Last administered on 10/03/17 20:44; Admin Dose 40 MEQ; Start 09/30/17 at 21:00 Zinc Sulfate (Zinc Sulfate) 220 mg DAILY PO Last administered on 10/03/17 08: 55; Admin Dose 220 MG; Start 10/01/17 at 09:00 Methadone HCl (Methadone) 40 mg DAILY PO Last administered on 10/03/17 08:55 ; Admin Dose 40 MG; Start 10/01/17 at 09:00 Ascorbic Acid (Vitamin C) 500 mg DAILY PO Last administered on 10/03/17 08:55 ; Admin Dose 500 MG; Start 10/01/17 at 09:00 Famotidine 20 mg 20 mg DAILY PO Last administered on 10/03/17 08:55; Admin Dose 20 MG; Start 10/02/17 at 09:00 Ampicillin Sodium/ Sulbactam Sodium 100 ml @ 100 mls/hr Q6 IVPB Last administered on 10/04/17 05:38; Admin Dose 100 MLS/HR; Start 10/01/17 at 18: 00 Ciprofloxacin/ Dextrose 200 ml @ 200 mls/hr Q12 IVPB Last administered on 20:43; Admin Dose 200 MLS/HR; Start 10/01/17 at 21:00 Ferric Sodium Gluconate Complex 125 mg/Sodium Chloride 110 ml @ 110 mls/hr Q24H IVPB Last administered on 10/03/17 14:27; Admin Dose 110 MLS/HR; Start 10/02/17 at 12:00; Stop 10/06/17 at 12:59 Vancomycin HCl (Vancocin) 250 ml @ 125 mls/hr Q12H IVPB Last administered on 10/04/17 03:23; Admin Dose 125 MLS/HR; Start 10/02/17 at 15:30 IV Flush (NS 10 ml) 10 ml PRN PRN IV IV PROTOCOL; Start 10/02/17 at 17:30 Enoxaparin Sodium (Lovenox) 50 mg Q12 SC Last administered on 10/03/17t 20:48 ; Admin Dose 50 MG; Start 10/02/17 at 21:00 KALE MARES Oct 04, 2017 09:23
[2017-10-04] MEDS: COLLAGENASE 30 GM TUBE TOP SCH (09:33)
[2017-10-04] MEDS: ENOXAPARIN 100 MG/ML SYG SC SCH ×2 (09:33→20:05)
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
[2017-10-04] MEDS ORDERED: SOD CHLORIDE 0.9% 250 ML IV* ONE (10:50)
[2017-10-04] MEDS: SOD FERRIC GLUC COMPLX 125 MG in SOD CHLORIDE 0.9% 100 ML IVPB SCH (11:17)
--- NOTE | 2017-10-04 12:06 | PN ---
Date/Time of Note Date/Time of Note DATE: 10/04/17 TIME: 12:02 Assessment/Plan Lines/Catheters IV Catheter Type (from [facility]): PICC Line Alarcon in Place (from [facility]): No Assessment/Plan Chief Complaint/Hosp Course -Bilateral lower extremity atherosclerosis with right lower extremity ulcer: It seems the patient has some component of atherosclerotic disease; however, the patient does have faint pedal pulses in which my suspicion would be low for having a nonhealing wound as a result of her atherosclerotic disease. Her noninvasive vascular studies did not demostrate flow limiting infrainguinal stenosis. It seems the patient's noncompliance and not coming to the hospital and receiving medical care may be the main issue of her ulceration that has worsened over the past month. -The patient will require debridement and Acell application if the wound is too large or defect is there -Left IJ DVT:-Recommend for the patient to be anticoagulated with any PO regimen she can tolerate after our surgical debridement, also her being compliant and coverage by her insurance. At the moment keep her on IV anticoagulation prior to her possible debridement of the RLE. Continue with antibiotics. Discussed with the patient regarding smoking cessation and IV drug abuse cessation Optimize vascular status (BP meds, diet, nutrition, exercise, sugar control, antiplatelets). Thank you for allowing me to partake in the care of your patient. Please call with any questions. Problems: Subjective 24 Hr Interval Summary Constitutional: no complaints Exam/Review of Systems Vital Signs Vitals Vital Signs Date Time Temp Pulse Resp B/P Pulse Ox O2 Delivery O2 Flow Rate FiO2 10/04/17 07:27 98.3 104 18 120/58 99 Intake and Output 10/03/17 10/03/17 10/04/17 15:00 23:00 07:00 Intake Total 100 ml 2560 ml 910 ml Balance 100 ml 2560 ml 910 ml Exam Free Text/Dictation GENERAL: She is alert and oriented x3. PULMONARY: Clear to auscultation bilaterally. CARDIOVASCULAR: S1, S2 present. ABDOMEN: Soft, nontender, nondistended. Bowel sounds positive. RIGHT LOWER EXTREMITY: Palpable femoral pulse, faint pedal pulse. Motor, sensory intact. Cap refill 3 seconds. There is a steven ulcer with necrotic fibrinous tissue and eschar with surrounding erythema measuring about 6 x 2 x 0.5 cm depth. LEFT LOWER EXTREMITY: Palpable femoral pulse, faint pedal pulse. Motor, sensory intact. Cap refill 3 seconds. Results Result Diagram: 10/04/17 0246 10/04/17 0246 OSEAS MARTINEZ MD Oct 04, 2017 12:05
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
[2017-10-04 14:13] VITALS: BP 111/68; RESP 18
--- NOTE | 2017-10-04 14:21 | CONS ---
Date/Time of Note Date/Time of Note DATE: 10/04/17 TIME: 14:18 Assessment/Plan Assessment/Plan Chief Complaint/Hosp Course SUBJECTIVE: No events overnight. The patient is awake, looks comfortable, no fevers overnight. MICROBIOLOGY: Right leg culture growing Strep pyogenes Corynebacterium species and Pseudomonas aeruginosa. Left buttock wound culture growing Strep pyogenes. Blood culture had been negative. ANTIMICROBIALS: The patient is on: 1. IV vancomycin. 2. Ciprofloxacin. PHYSICAL EXAMINATION: GENERAL: This is a fragile, well-developed, elderly woman who is awake, in no distress. HEENT: Head atraumatic, normocephalic. Sclerae anicteric. Buccal mucosa dry. NECK: Supple. CHEST: Rise symmetrical. Breath sounds diminished to bases. HEART: S1, S2. ABDOMEN: Soft, bowel tones present. EXTREMITIES: Without cyanosis. Bilateral lower extremities: Chronic wounds are more on the right. Left leg with an area of fluctuance below knee. ASSESSMENT: 1. Systemic inflammatory response syndrome with persistent leukocytosis, status post sepsis with fevers, tachycardia and encephalopathy. 2. Multiple infected wounds, questionable left leg abscess. 3. Chronic obstructive pulmonary disease. 4. Cachexia. 5. History of IV drug abuse. PLAN: The patient remains stable, looks better today, wbc decreasing, continue abx, f/u podiatry and vascular rec-s [facility] staff Problems: Consultation Date/Type/Reason Admit Date/Time Sep 28, 2017 at 18:48 Initial Consult Date Type of Consultation: ID Exam/Review of Systems Vital Signs Vitals Vital Signs Date Time Temp Pulse Resp B/P Pulse Ox O2 Delivery O2 Flow Rate FiO2 10/04/17 14:13 98.8 98 18 111/68 98 Intake and Output 10/03/17 10/03/17 10/04/17 15:00 23:00 07:00 Intake Total 100 ml 2560 ml 910 ml Balance 100 ml 2560 ml 910 ml Results Result Diagram: 10/04/17 0246 10/04/17 0246 Results 24 hrs Laboratory Tests Test 10/04/17 02:46 10/04/17 07:46 White Blood Count 14.9 #H Red Blood Count 2.72 L Hemoglobin 7.3 L Hematocrit 23.1 L Mean Corpuscular Volume 84.9 Mean Corpuscular Hemoglobin 26.8 L Mean Corpuscular Hemoglobin Concent 31.6 L Red Cell Distribution Width 15.6 H Platelet Count 513 H Mean Platelet Volume 8.8 Neutrophils % 69.3 Lymphocytes % 19.2 Monocytes % 6.4 Eosinophils % 1.8 Basophils % 0.4 Nucleated Red Blood Cells % 0.0 Neutrophils # 10.4 H Lymphocytes # 2.9 Monocytes # 1.0 H Eosinophils # 0.3 Basophils # 0.1 Nucleated Red Blood Cells # 0.0 Sodium Level 135 Potassium Level 4.0 Chloride Level 99 Carbon Dioxide Level 30 Anion Gap 10 Blood Urea Nitrogen 13 Creatinine 0.96 Glucose Level 115 Calcium Level 7.8 L Vancomycin Level Trough 10.9 Lab Scanned Report REFERENCE LAB Medications Medications Current Medications Ondansetron HCl (Zofran Inj) 4 mg Q6H PRN IV NAUSEA AND/OR VOMITING; Start at 20:00 Miscellaneous Information (Pending Santyl Order For Wound Care) This patient martin... PRN PRN XX WOUND CARE; Start 09/29/17 at 16:30 Collagenase (Santyl) 1 applic DAILY TOP Last administered on 10/04/17 09:33; Admin Dose 1 APPLIC; Start 09/30/17 at 09:00 Collagenase (Santyl) 1 applic PRN PRN TOP WOUND CARE; Start 09/29/17 at 17:00 Potassium Chloride (Potassium Chloride Pwd/Soln) 40 meq TID PO Last administered on 10/04/17 08:59; Admin Dose 40 MEQ; Start 09/30/17 at 21:00 Zinc Sulfate (Zinc Sulfate) 220 mg DAILY PO Last administered on 10/04/17 08: 59; Admin Dose 220 MG; Start 10/01/17 at 09:00 Methadone HCl (Methadone) 40 mg DAILY PO Last administered on 10/04/17 08:59 ; Admin Dose 40 MG; Start 10/01/17 at 09:00 Famotidine 20 mg 20 mg DAILY PO Last administered on 10/04/17 08:59; Admin Dose 20 MG; Start 10/02/17 at 09:00 Ciprofloxacin/ Dextrose 200 ml @ 200 mls/hr Q12 IVPB Last administered on 09:00; Admin Dose 200 MLS/HR; Start 10/01/17 at 21:00 Ferric Sodium Gluconate Complex 125 mg/Sodium Chloride 110 ml @ 110 mls/hr Q24H IVPB Last administered on 10/04/17 11:17; Admin Dose 110 MLS/HR; Start 10/02/17 at 12:00; Stop 10/06/17 at 12:59 Vancomycin HCl (Vancocin) 250 ml @ 125 mls/hr Q12H IVPB Last administered on 10/04/17 03:23; Admin Dose 125 MLS/HR; Start 10/02/17 at 15:30 IV Flush (NS 10 ml) 10 ml PRN PRN IV IV PROTOCOL; Start 10/02/17 at 17:30 Enoxaparin Sodium (Lovenox) 50 mg Q12 SC Last administered on 10/04/17 09:33 ; Admin Dose 50 MG; Start 10/02/17 at 21:00 Ascorbic Acid (Vitamin C) 500 mg BID PO ; Start 10/04/17 at 21:00 Multivitamins Therapeutic (Theragran) 1 tab DAILY PO ; Start 10/05/17 at 09:00 TELMA DUBON NP Oct 04, 2017 14:21
--- NOTE | 2017-10-04 16:57 | RADRPT ---
Echocardiogram Report Patient Name: NAMRATA BACH Gender: Female Date: 1955 Study Date: 04-Oct-2017 [employer]ater: Latasha [facility] Location: [address] Ref. Physician: CAYDEN BLANDON Quality: Adequate Procedures: Transthoracic echocardiogram with complete 2D, M-Mode, and doppler examination. Indications: Pre-op. 2D/M Mode Doppler Measurement Value Normal Ranges Measurement Value Normal Ranges LVIDd 2D 5.0 3.5 - 5.6 cm AV Peak Max 1.6 m/sec LVIDs 2D 3.5 2.1 - 4.1 cm AV Peak PG 10.0 mmHg FS 2D 30.4 % LVOT Peak Max 0.9 m/sec LVPWd 2D 1.0 0.6 - 1.1 cm LVOT Peak PG 4.0 mmHg IVSd 2D 0.8 0.6 - 1.1 cm MV E Peak Max 0.8 m/sec IVS/LVPW 2D 0.8 MV A Peak Max 1.1 m/sec AoR Diam 2D 3.1 2.0 - 3.7 cm MV E/A 0.7 LA/Ao 2D 1 0 - 1 MV Decel Time 148 msec EDV 2D 128.0 cm3 MV E/A 0.7 ESV 2D 43.2 cm3 TR Peak Max 2.7 m/sec LA Dimen 2D 3.5 2.3 - 4.0 cm TR Peak PG 29.0 mmHg RVSP 32.0 mmHg Findings Left Ventricle: Normal left ventricular cavity size. Normal left ventricular wall thickness. Mild global left ventricular systolic dysfunction. Ejection fraction is visually estimated at 4550 %. Tissue Doppler/Mitral Doppler indices are consistent with impaired relaxation (Stage I diastolic dysfunction). Right Ventricle: Normal right ventricular size. Normal right ventricular systolic function. Left Atrium: The left atrium is normal in size. Right Atrium: The right atrium is normal in size. Mitral Valve: Mild mitral leaflet calcification. Mild mitral annular calcification. Trace mitral regurgitation. Aortic Valve: Normal appearance of the aortic valve. No significant aortic stenosis or insufficiency. Tricuspid Valve: Normal appearance of the tricuspid valve. Estimated peak PA systolic pressure 32 mmHg. There is mild tricuspid regurgitation. Pulmonic Valve: Pulmonic valve not well visualized. There is trace pulmonic regurgitation. Pericardium: Normal pericardium with no significant pericardial effusion. Aorta: Normal aortic root. IVC: Normal size and normal respiratory collapse consistent with normal right atrial pressure. Conclusions 1.Normal left ventricular cavity size. Normal left ventricular wall thickness. Mild global left ventricular systolic dysfunction. Ejection fraction is visually estimated at 45-50 %. Tissue Doppler/Mitral Doppler indices are consistent with impaired relaxation (Stage I diastolic dysfunction). 2.Mild mitral leaflet calcification. Mild mitral annular calcification. Trace mitral regurgitation. 3.Normal appearance of the tricuspid valve. Estimated peak PA systolic pressure 32 mmHg. There is mild tricuspid regurgitation. 4.Pulmonic valve not well visualized. There is trace pulmonic regurgitation. Electronically Signed By: Cayden Blandon 04-Oct-2017 16:56:18 -0800 Patient Name: NAMRATA BACH Study Date: 04-Oct-2017 [id number]
[2017-10-04 19:27] VITALS: BP 119/68; RESP 18
[2017-10-05 02:17] VITALS: BP 140/71; RESP 20
[2017-10-05] MEDS: VANCOMYCIN 1 GM in NS 250 ML IVPB SCH ×2 (03:38→14:59)
[2017-10-05 06:31] LABS: BASOPHIL # 0.1 10^3/ul (0.0-0.1); BASOPHILS % 0.4 % (0.0-2.0); EOSINOPHILS # 0.3 10^3/ul (0.0-0.5); EOSINOPHILS % 2.2 % (0.0-7.0); HEMATOCRIT 27.8 % (37.0-47.0); HEMOGLOBIN 9.1 g/dl (12.0-16.0); LYMPHOCYTES # 3.1 10^3/ul (0.8-2.9); MEAN CORPUSCULAR HEMOGLOBIN 27.7 pg (29.0-33.0); MEAN CORPUSCULAR HGB CONC 32.7 g/dl (32.0-37.0); MEAN CORPUSCULAR VOLUME 84.8 fl (82.0-101.0); MEAN PLATELET VOLUME 8.8 fl (7.4-10.4); MONOCYTE # 1.2 10^3/ul (0.3-0.9); MONOCYTES % 8.6 % (0.0-11.0); NEUTROPHIL # 8.4 10^3/ul (1.6-7.5); NEUTROPHILS % 62.9 % (39.0-77.0); PLATELET COUNT 501 10^3/UL (140-415); RED BLOOD COUNT 3.28 10^6/ul (4.20-5.40); RED CELL DISTRIBUTION WIDTH 15.5 % (11.5-14.5); WHITE BLOOD COUNT 13.4 10^3/ul (4.8-10.8)
[2017-10-05 06:58] LABS: CALCIUM 8.3 mg/dl (8.4-10.2); CREATININE 0.66 mg/dl (0.44-1.00); MAGNESIUM 1.4 mg/dl (1.7-2.5); POTASSIUM 4.3 mmol/L (3.5-5.1)
[2017-10-05 07:18] LABS: CHOLESTEROL < 50 mg/dl (100-200)
[2017-10-05 07:19] LABS: HDL CHOLESTEROL 21 mg/dl (35-98); TRIGLYCERIDES 58 mg/dl (0-149)
[2017-10-05 07:29] VITALS: BP 120/78; RESP 18
[2017-10-05] MEDS: CIPROFLOXACIN 400MG/D5W 200 ML IVPB SCH ×2 (08:26→21:04)
[2017-10-05] MEDS: FAMOTIDINE 20 MG TAB PO SCH (09:00)
[2017-10-05] MEDS: MULTIVITAMINS THERAPEUTIC TAB PO SCH (09:00)
[2017-10-05] MEDS: ZINC SULFATE 220 MG CAP PO SCH (09:00)
[2017-10-05] MEDS: ENOXAPARIN 100 MG/ML SYG SC SCH ×2 (09:00→21:17)
[2017-10-05] MEDS: METHADONE 10 MG TAB PO SCH ×2 (09:00→11:10)
[2017-10-05] MEDS: ASCORBIC ACID 500 MG TAB PO SCH ×2 (09:00→21:08)
[2017-10-05] MEDS: POTASSIUM CHLORIDE 20 MEQ POWDER FOR ORAL SOLN PO SCH ×3 (09:00→21:11)
[2017-10-05] MEDS: COLLAGENASE 30 GM TUBE TOP SCH (09:34)
[2017-10-05] MEDS ORDERED: DEXTROSE 5%-0.9% NACL 1,000 ML IV SCH (11:00)
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
--- NOTE | 2017-10-05 11:22 | CONS ---
Date/Time of Note Date/Time of Note DATE: 10/05/17 TIME: 11:20 Assessment/Plan Assessment/Plan Chief Complaint/Hosp Course This is an unfortunate 8-year-old female who looks much older than her stated age who was admitted for lower extremity cellulitis. Patient currently does not have pain however I am asked to see patient to follow her for methadone maintenance standpoint. Patient states that she took her last dose of heroin 1 day prior to admission. Patient is a poor historian but she also admits to taking methamphetamines she drinks and she smokes.. States she has been incarcerated at least once in the past. The rest of the past medical history is unclear as patient confabulates and is a poor historian. Problems: Consultation Date/Type/Reason Admit Date/Time Sep 28, 2017 at 18:48 Initial Consult Date Type of Consultation: pain 24 HR Interval Summary Free Text/Dictation Will continue to follow post op for changes in level of pain Exam/Review of Systems Vital Signs Vitals Vital Signs Date Time Temp Pulse Resp B/P Pulse Ox O2 Delivery O2 Flow Rate FiO2 10/05/17 07:29 98.4 93 18 120/78 98 Intake and Output 10/04/17 10/04/17 10/05/17 14:59 22:59 06:59 Intake Total 410 ml 2130 ml 1750 ml Output Total 1500 ml 900 ml Balance 410 ml 630 ml 850 ml Results Result Diagram: 10/05/17 0606 10/05/17 0605 Results 24 hrs Laboratory Tests Test 10/04/17 19:46 10/05/17 00:54 10/05/17 06:05 10/05/17 06:06 Troponin I < 0.012 < 0.012 < 0.012 Sodium Level 134 L Potassium Level 4.3 Chloride Level 101 Carbon Dioxide Level 29 Anion Gap 8 Blood Urea Nitrogen 14 Creatinine 0.66 Glucose Level 93 Calcium Level 8.3 L Magnesium Level 1.4 L White Blood Count 13.4 H Red Blood Count 3.28 #L Hemoglobin 9.1 #L Hematocrit 27.8 #L Mean Corpuscular Volume 84.8 Mean Corpuscular Hemoglobin 27.7 L Mean Corpuscular Hemoglobin Concent 32.7 Red Cell Distribution Width 15.5 H Platelet Count 501 H Mean Platelet Volume 8.8 Neutrophils % 62.9 Lymphocytes % 23.0 Monocytes % 8.6 Eosinophils % 2.2 Basophils % 0.4 Nucleated Red Blood Cells % 0.0 Neutrophils # 8.4 H Lymphocytes # 3.1 H Monocytes # 1.2 H Eosinophils # 0.3 Basophils # 0.1 Nucleated Red Blood Cells # 0.0 Triglycerides Level 58 Cholesterol Level < 50 L LDL Cholesterol, Calculated HDL Cholesterol 21 L Cholesterol/HDL Ratio Medications Medications Current Medications Ondansetron HCl (Zofran Inj) 4 mg Q6H PRN IV NAUSEA AND/OR VOMITING; Start at 20:00 Miscellaneous Information (Pending Santyl Order For Wound Care) This patient martin... PRN PRN XX WOUND CARE; Start 09/29/17 at 16:30 Collagenase (Santyl) 1 applic DAILY TOP Last administered on 10/05/17 09:34; Admin Dose 1 APPLIC; Start 09/30/17 at 09:00 Collagenase (Santyl) 1 applic PRN PRN TOP WOUND CARE; Start 09/29/17 at 17:00 Potassium Chloride (Potassium Chloride Pwd/Soln) 40 meq TID PO Last administered on 10/04/17 20:05; Admin Dose 40 MEQ; Start 09/30/17 at 21:00 Zinc Sulfate (Zinc Sulfate) 220 mg DAILY PO Last administered on 10/04/17 08: 59; Admin Dose 220 MG; Start 10/01/17 at 09:00 Methadone HCl (Methadone) 40 mg DAILY PO Last administered on 10/05/17 11:10 ; Admin Dose 40 MG; Start 10/01/17 at 09:00 Famotidine 20 mg 20 mg DAILY PO Last administered on 10/04/17 08:59; Admin Dose 20 MG; Start 10/02/17 at 09:00 Ciprofloxacin/ Dextrose 200 ml @ 200 mls/hr Q12 IVPB Last administered on 08:26; Admin Dose 200 MLS/HR; Start 10/01/17 at 21:00 Ferric Sodium Gluconate Complex 125 mg/Sodium Chloride 110 ml @ 110 mls/hr Q24H IVPB Last administered on 10/04/17 11:17; Admin Dose 110 MLS/HR; Start 10/02/17 at 12:00; Stop 10/06/17 at 12:59 Vancomycin HCl (Vancocin) 250 ml @ 125 mls/hr Q12H IVPB Last administered on 10/05/17 03:38; Admin Dose 125 MLS/HR; Start 10/02/17 at 15:30 IV Flush (NS 10 ml) 10 ml PRN PRN IV IV PROTOCOL; Start 10/02/17 at 17:30 Enoxaparin Sodium (Lovenox) 50 mg Q12 SC Last administered on 10/04/17 09:33 ; Admin Dose 50 MG; Start 10/02/17 at 21:00 Ascorbic Acid (Vitamin C) 500 mg BID PO Last administered on 10/04/17 20:05; Admin Dose 500 MG; Start 10/04/17 at 21:00 Multivitamins Therapeutic 1 tab 1 tab DAILY PO ; Start 10/05/17 at 09:00 Dextrose/Sodium Chloride 1,000 ml @ 75 mls/hr [id number] IV ; Start 10/05/17 at 11:00 Magnesium Sulfate/ Dextrose (Magnesium Sulfate/D5W) 106 ml @ 35.333 mls/ hr ONCE ONCE IVPB ; Start 10/05/17 at 11:30; Stop 10/05/17 at 14:29 KALE MARES Oct 05, 2017 11:22
[2017-10-05] MEDS ORDERED: MAGNESIUM SULFATE 3 GM in DEXTROSE 5% 100 ML IVPB ONE (11:30)
[2017-10-05] MEDS: SOD FERRIC GLUC COMPLX 125 MG in SOD CHLORIDE 0.9% 100 ML IVPB SCH (12:17)
--- NOTE | 2017-10-05 13:16 | RADRPT ---
PROCEDURE: Ultrasound of the soft tissues of the left lower leg. CLINICAL INDICATION: Palpable lesion in the left lower leg. TECHNIQUE: High-resolution sonography of the left lower leg at the site of the palpable lesion was performed in the axial and sagittal planes. COMPARISON: None FINDINGS: At the site of the palpable lesion in the left lower leg, there is a subcutaneous soft tissue mass a nd fluid collection measuring 1.0 x 1.9 cm. There is no other cystic or solid mass. IMPRESSION: 1. Subcutaneous soft tissue mass and fluid collection measuring 1.0 x 1.9 cm at the site of the pal pable lesion in the left lower leg. 2. Any further management regarding the palpable lesion should be based on clinical grounds. RPTAT: QQ .Candido Awad MD, Date Time Electronically viewed and signed by .Candido Awad MD, on 10/05/2017 13:16 .R/
[2017-10-05 13:20] VITALS: BP 112/78; PULSE 87; RESP 10
--- NOTE | 2017-10-05 14:35 | CONS ---
Date/Time of Note Date/Time of Note DATE: 10/05/17 TIME: 14:32 Assessment/Plan Assessment/Plan Chief Complaint/Hosp Course SUBJECTIVE: No events overnight. The patient is awake, looks comfortable, no fevers overnight. MICROBIOLOGY: Right leg culture growing Strep pyogenes Corynebacterium species and Pseudomonas aeruginosa. Left buttock wound culture growing Strep pyogenes. Blood culture had been negative. ANTIMICROBIALS: The patient is on: 1. IV vancomycin. 2. Ciprofloxacin. PHYSICAL EXAMINATION: GENERAL: This is a fragile, well-developed, elderly woman who is awake, in no distress. HEENT: Head atraumatic, normocephalic. Sclerae anicteric. Buccal mucosa dry. NECK: Supple. CHEST: Rise symmetrical. Breath sounds diminished to bases. HEART: S1, S2. ABDOMEN: Soft, bowel tones present. EXTREMITIES: Without cyanosis. Bilateral lower extremities: Chronic wounds are more on the right. Left leg with an area of fluctuance below knee. ASSESSMENT: 1. Systemic inflammatory response syndrome with persistent leukocytosis, status post sepsis with fevers, tachycardia and encephalopathy. 2. Multiple infected wounds, questionable left leg abscess. 3. Chronic obstructive pulmonary disease. 4. Cachexia. 5. History of IV drug abuse. PLAN: The patient remains stable, wbc continues to trend down, continue abx, L leg US noted, f/u podiatry and vascular rec-s [facility] staff Problems: Consultation Date/Type/Reason Admit Date/Time Sep 28, 2017 at 18:48 Type of Consultation: id Exam/Review of Systems Vital Signs Vitals Vital Signs Date Time Temp Pulse Resp B/P Pulse Ox O2 Delivery O2 Flow Rate FiO2 10/05/17 13:20 98.7 87 10 112/78 97 Room Air Intake and Output 10/04/17 10/04/17 10/05/17 15:00 23:00 07:00 Intake Total 410 ml 2130 ml 1750 ml Output Total 1500 ml 900 ml Balance 410 ml 630 ml 850 ml Results Result Diagram: 10/05/17 0606 10/05/17 0605 Results 24 hrs Laboratory Tests Test 10/04/17 19:46 10/05/17 00:54 10/05/17 06:05 10/05/17 06:06 Troponin I < 0.012 < 0.012 < 0.012 Sodium Level 134 L Potassium Level 4.3 Chloride Level 101 Carbon Dioxide Level 29 Anion Gap 8 Blood Urea Nitrogen 14 Creatinine 0.66 Glucose Level 93 Calcium Level 8.3 L Magnesium Level 1.4 L White Blood Count 13.4 H Red Blood Count 3.28 #L Hemoglobin 9.1 #L Hematocrit 27.8 #L Mean Corpuscular Volume 84.8 Mean Corpuscular Hemoglobin 27.7 L Mean Corpuscular Hemoglobin Concent 32.7 Red Cell Distribution Width 15.5 H Platelet Count 501 H Mean Platelet Volume 8.8 Neutrophils % 62.9 Lymphocytes % 23.0 Monocytes % 8.6 Eosinophils % 2.2 Basophils % 0.4 Nucleated Red Blood Cells % 0.0 Neutrophils # 8.4 H Lymphocytes # 3.1 H Monocytes # 1.2 H Eosinophils # 0.3 Basophils # 0.1 Nucleated Red Blood Cells # 0.0 Triglycerides Level 58 Cholesterol Level < 50 L LDL Cholesterol, Calculated HDL Cholesterol 21 L Cholesterol/HDL Ratio Medications Medications Current Medications Ondansetron HCl (Zofran Inj) 4 mg Q6H PRN IV NAUSEA AND/OR VOMITING; Start at 20:00 Miscellaneous Information (Pending Santyl Order For Wound Care) This patient martin... PRN PRN XX WOUND CARE; Start 09/29/17 at 16:30 Collagenase (Santyl) 1 applic DAILY TOP Last administered on 10/05/17 09:34; Admin Dose 1 APPLIC; Start 09/30/17 at 09:00 Collagenase (Santyl) 1 applic PRN PRN TOP WOUND CARE; Start 09/29/17 at 17:00 Potassium Chloride (Potassium Chloride Pwd/Soln) 40 meq TID PO Last administered on 10/04/17 20:05; Admin Dose 40 MEQ; Start 09/30/17 at 21:00 Zinc Sulfate (Zinc Sulfate) 220 mg DAILY PO Last administered on 10/04/17 08: 59; Admin Dose 220 MG; Start 10/01/17 at 09:00 Methadone HCl (Methadone) 40 mg DAILY PO Last administered on 10/05/17 11:10 ; Admin Dose 40 MG; Start 10/01/17 at 09:00 Famotidine 20 mg 20 mg DAILY PO Last administered on 10/04/17 08:59; Admin Dose 20 MG; Start 10/02/17 at 09:00 Ciprofloxacin/ Dextrose 200 ml @ 200 mls/hr Q12 IVPB Last administered on 08:26; Admin Dose 200 MLS/HR; Start 10/01/17 at 21:00 Ferric Sodium Gluconate Complex 125 mg/Sodium Chloride 110 ml @ 110 mls/hr Q24H IVPB Last administered on 10/05/17 12:17; Admin Dose 110 MLS/HR; Start 10/02/17 at 12:00; Stop 10/06/17 at 12:59 Vancomycin HCl (Vancocin) 250 ml @ 125 mls/hr Q12H IVPB Last administered on 10/05/17 03:38; Admin Dose 125 MLS/HR; Start 10/02/17 at 15:30 IV Flush (NS 10 ml) 10 ml PRN PRN IV IV PROTOCOL; Start 10/02/17 at 17:30 Enoxaparin Sodium (Lovenox) 50 mg Q12 SC Last administered on 10/04/17 09:33 ; Admin Dose 50 MG; Start 10/02/17 at 21:00 Ascorbic Acid (Vitamin C) 500 mg BID PO Last administered on 10/04/17 20:05; Admin Dose 500 MG; Start 10/04/17 at 21:00 Multivitamins Therapeutic 1 tab 1 tab DAILY PO ; Start 10/05/17 at 09:00 Dextrose/Sodium Chloride (D5-NS) 1,000 ml @ 75 mls/hr [id number] IV Last administered on 10/05/17 12:00; Admin Dose 75 MLS/HR; Start 10/05/17 at 11:00 TELMA DUBON NP Oct 05, 2017 14:35
--- NOTE | 2017-10-05 15:15 | RADRPT ---
Vent Rate: 88 bpm RR Interval: 0 msec UT Interval: 142 msec QRS Duration: 88 msec QT Interval: 362 msec QTC Interval: 438 msec P-R-T [place]: 65 - -11 - 41 degrees Sinus rhythm with premature atrial complexes Otherwise normal ECG Electronically Signed By: Wade Monzon [id number]
--- NOTE | 2017-10-05 19:25 | CONS ---
Date/Time of Note Date/Time of Note DATE: 10/05/17 TIME: 19:21 Assessment/Plan Assessment/Plan Chief Complaint/Hosp Course IMPRESSION: 1. Preoperative evaluation prior to placement of a peritoneal dialysis catheter.-negative trop x 3/EF 45-50% by echo/no sig valve lesions 2. Hypertension, under reasonable control. 3. Left lower extremity deep venous thrombosis. 4. Anemia. 5. Prior failed chest wall catheters. 6. cardiomyopathy-EF 45%-? due to substance abuse with amphetamines Recc: -continue anticoagulation -Continue local wound care -Continue abx's -Will discuss risk of surgery with vascular surgery and add low dose BB Problems: Consultation Date/Type/Reason Admit Date/Time Sep 28, 2017 at 18:48 Initial Consult Date 10/04/2017 Type of Consultation: cardiology Reason for Consultation Pre-op Referring Provider: IMER MARTINEZ Exam/Review of Systems Vital Signs Vitals Vital Signs Date Time Temp Pulse Resp B/P Pulse Ox O2 Delivery O2 Flow Rate FiO2 10/05/17 13:20 98.7 87 10 112/78 97 Room Air Intake and Output 10/04/17 10/04/17 10/05/17 15:00 23:00 07:00 Intake Total 410 ml 2130 ml 1750 ml Output Total 1500 ml 900 ml Balance 410 ml 630 ml 850 ml Exam Review of Systems: CONSTITUTIONAL: No fevers, chills. PULMONARY: No sob CARDIOVASCULAR: No chest pain/palpitations GASTROINTESTINAL: No nausea/vomiting. GENITOURINARY: No hematuria/dysuria. MUSCULOSKELETAL: No myagias/arthalgias. PSYCHIATRIC: The patient denies depression. NEUROLOGIC: No weakness Constitutional: alert Psych: no complaints Head: normocephalic ENMT: mucosa pink and moist Neck: jvd (9 cm water), supple Respiratory: clear to auscultation Cardiovascular: regular rate and rhythm Gastrointestinal: non-tender, soft Musculoskeletal: muscle tone (normal) Extremities: edema (none), other (LLE covered by dressing) Neurological: other (No focal deficits) Results Result Diagram: 10/05/17 0606 10/05/17 0605 Results 24 hrs Laboratory Tests Test 10/04/17 19:46 10/05/17 00:54 10/05/17 06:05 10/05/17 06:06 Troponin I < 0.012 < 0.012 < 0.012 Sodium Level 134 L Potassium Level 4.3 Chloride Level 101 Carbon Dioxide Level 29 Anion Gap 8 Blood Urea Nitrogen 14 Creatinine 0.66 Glucose Level 93 Calcium Level 8.3 L Magnesium Level 1.4 L White Blood Count 13.4 H Red Blood Count 3.28 #L Hemoglobin 9.1 #L Hematocrit 27.8 #L Mean Corpuscular Volume 84.8 Mean Corpuscular Hemoglobin 27.7 L Mean Corpuscular Hemoglobin Concent 32.7 Red Cell Distribution Width 15.5 H Platelet Count 501 H Mean Platelet Volume 8.8 Neutrophils % 62.9 Lymphocytes % 23.0 Monocytes % 8.6 Eosinophils % 2.2 Basophils % 0.4 Nucleated Red Blood Cells % 0.0 Neutrophils # 8.4 H Lymphocytes # 3.1 H Monocytes # 1.2 H Eosinophils # 0.3 Basophils # 0.1 Nucleated Red Blood Cells # 0.0 Triglycerides Level 58 Cholesterol Level < 50 L LDL Cholesterol, Calculated HDL Cholesterol 21 L Cholesterol/HDL Ratio Medications Medications Current Medications Ondansetron HCl (Zofran Inj) 4 mg Q6H PRN IV NAUSEA AND/OR VOMITING; Start at 20:00 Miscellaneous Information (Pending Santyl Order For Wound Care) This patient martin... PRN PRN XX WOUND CARE; Start 09/29/17 at 16:30 Collagenase (Santyl) 1 applic DAILY TOP Last administered on 10/05/17 09:34; Admin Dose 1 APPLIC; Start 09/30/17 at 09:00 Collagenase (Santyl) 1 applic PRN PRN TOP WOUND CARE; Start 09/29/17 at 17:00 Potassium Chloride (Potassium Chloride Pwd/Soln) 40 meq TID PO Last administered on 10/04/17 20:05; Admin Dose 40 MEQ; Start 09/30/17 at 21:00 Zinc Sulfate (Zinc Sulfate) 220 mg DAILY PO Last administered on 10/04/17 08: 59; Admin Dose 220 MG; Start 10/01/17 at 09:00 Methadone HCl (Methadone) 40 mg DAILY PO Last administered on 10/05/17 11:10 ; Admin Dose 40 MG; Start 10/01/17 at 09:00 Famotidine 20 mg 20 mg DAILY PO Last administered on 10/04/17 08:59; Admin Dose 20 MG; Start 10/02/17 at 09:00 Ciprofloxacin/ Dextrose 200 ml @ 200 mls/hr Q12 IVPB Last administered on 08:26; Admin Dose 200 MLS/HR; Start 10/01/17 at 21:00 Ferric Sodium Gluconate Complex 125 mg/Sodium Chloride 110 ml @ 110 mls/hr Q24H IVPB Last administered on 10/05/17 12:17; Admin Dose 110 MLS/HR; Start 10/02/17 at 12:00; Stop 10/06/17 at 12:59 Vancomycin HCl (Vancocin) 250 ml @ 125 mls/hr Q12H IVPB Last administered on 10/05/17 14:59; Admin Dose 125 MLS/HR; Start 10/02/17 at 15:30 IV Flush (NS 10 ml) 10 ml PRN PRN IV IV PROTOCOL; Start 10/02/17 at 17:30 Enoxaparin Sodium (Lovenox) 50 mg Q12 SC Last administered on 10/04/17 09:33 ; Admin Dose 50 MG; Start 10/02/17 at 21:00 Ascorbic Acid (Vitamin C) 500 mg BID PO Last administered on 10/04/17 20:05; Admin Dose 500 MG; Start 10/04/17 at 21:00 Multivitamins Therapeutic (Theragran) 1 tab DAILY PO ; Start 10/05/17 at 09:00 CAYDEN ROSE Oct 05, 2017 19:25
[2017-10-05 19:58] VITALS: BP 106/71; RESP 20
[2017-10-05] MEDS: METOPROLOL 25 MG TAB PO SCH (21:05)
[2017-10-06 02:00] VITALS: BP 104/58; RESP 20
[2017-10-06] MEDS: VANCOMYCIN 1 GM in NS 250 ML IVPB SCH ×2 (03:31→16:48)
[2017-10-06 06:09] LABS: BASOPHILS % 0.3 % (0.0-2.0); EOSINOPHILS # 0.2 10^3/ul (0.0-0.5); EOSINOPHILS % 1.6 % (0.0-7.0); HEMATOCRIT 27.1 % (37.0-47.0); HEMOGLOBIN 8.5 g/dl (12.0-16.0); LYMPHOCYTES # 2.8 10^3/ul (0.8-2.9); LYMPHOCYTES % 22.8 % (15.0-51.0); MEAN CORPUSCULAR HEMOGLOBIN 27.3 pg (29.0-33.0); MEAN CORPUSCULAR HGB CONC 31.4 g/dl (32.0-37.0); MEAN CORPUSCULAR VOLUME 87.1 fl (82.0-101.0); MEAN PLATELET VOLUME 8.8 fl (7.4-10.4); MONOCYTE # 1.2 10^3/ul (0.3-0.9); MONOCYTES % 10.1 % (0.0-11.0); NEUTROPHIL # 7.7 10^3/ul (1.6-7.5); NEUTROPHILS % 63.6 % (39.0-77.0); PLATELET COUNT 530 10^3/UL (140-415); RED BLOOD COUNT 3.11 10^6/ul (4.20-5.40); WHITE BLOOD COUNT 12.1 10^3/ul (4.8-10.8)
[2017-10-06 07:05] LABS: CREATININE 0.61 mg/dl (0.44-1.00); POTASSIUM 3.2 mmol/L (3.5-5.1)
[2017-10-06 07:33] VITALS: BP 108/67; RESP 16
[2017-10-06] MEDS: CIPROFLOXACIN 400MG/D5W 200 ML IVPB SCH ×2 (08:58→22:00)
[2017-10-06] MEDS: METOPROLOL 25 MG TAB PO SCH ×2 (09:00→22:07)
[2017-10-06] MEDS: POTASSIUM CHLORIDE 20 MEQ POWDER FOR ORAL SOLN PO SCH ×3 (09:00→22:25)
[2017-10-06] MEDS: MULTIVITAMINS THERAPEUTIC TAB PO SCH (09:00)
[2017-10-06] MEDS: ASCORBIC ACID 500 MG TAB PO SCH ×2 (09:00→22:25)
[2017-10-06] MEDS: METHADONE 10 MG TAB PO SCH (09:01)
[2017-10-06] MEDS: FAMOTIDINE 20 MG TAB PO SCH (09:01)
[2017-10-06] MEDS: ZINC SULFATE 220 MG CAP PO SCH (09:02)
[2017-10-06] MEDS: COLLAGENASE 30 GM TUBE TOP SCH (09:03)
[2017-10-06] MEDS: ENOXAPARIN 100 MG/ML SYG SC SCH ×2 (09:05→22:24)
[2017-10-06] MEDS ORDERED: POTASSIUM CHLORIDE (SR) 20 MEQ TAB PO STA (10:34)
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
--- NOTE | 2017-10-06 12:41 | CONS ---
Date/Time of Note Date/Time of Note DATE: 10/06/17 TIME: 12:39 Assessment/Plan Assessment/Plan Chief Complaint/Hosp Course IMPRESSION: 1. Preoperative evaluation prior to placement of a peritoneal dialysis catheter.-negative trop x 3/EF 45-50% by echo/no sig valve lesions 2. Hypertension, under reasonable control. 3. Left lower extremity deep venous thrombosis. 4. Anemia. 5. Prior failed chest wall catheters. 6. cardiomyopathy-EF 45%-? due to substance abuse with amphetamines Recc: -continue anticoagulation -Continue local wound care -Continue abx's -Contineu low dose BB as tolerated -Will discuss risk of surgery with vascular surgery. Problems: Consultation Date/Type/Reason Admit Date/Time Sep 28, 2017 at 18:48 Initial Consult Date 10/04/2017 Type of Consultation: cardiology Reason for Consultation pre-op Referring Provider: IMER MARTINEZ Exam/Review of Systems Vital Signs Vitals Vital Signs Date Time Temp Pulse Resp B/P Pulse Ox O2 Delivery O2 Flow Rate FiO2 10/06/17 07:33 98.7 95 16 108/67 94 10/05/17 13:20 Room Air Intake and Output 10/05/17 10/05/17 10/06/17 15:00 23:00 07:00 Intake Total 310 ml 966 ml 250 ml Output Total 1500 ml Balance 310 ml -534 ml 250 ml Exam Review of Systems: CONSTITUTIONAL: No fevers, chills. PULMONARY: No sob CARDIOVASCULAR: No chest pain/palpitations GASTROINTESTINAL: No nausea/vomiting. GENITOURINARY: No hematuria/dysuria. MUSCULOSKELETAL: No myagias/arthalgias. PSYCHIATRIC: The patient denies depression. NEUROLOGIC: No weakness Constitutional: alert Psych: no complaints Head: normocephalic ENMT: mucosa pink and moist Neck: jvd (9 cm water), supple Respiratory: diminished breath sounds Cardiovascular: regular rate and rhythm Gastrointestinal: non-tender, soft Musculoskeletal: muscle tone (njormal) Extremities: edema Neurological: other (No focal deficits) Results Result Diagram: 10/06/1717 10/06/17 0517 Results 24 hrs Laboratory Tests Test 10/06/17 05:17 White Blood Count 12.1 H Red Blood Count 3.11 L Hemoglobin 8.5 L Hematocrit 27.1 L Mean Corpuscular Volume 87.1 Mean Corpuscular Hemoglobin 27.3 L Mean Corpuscular Hemoglobin Concent 31.4 L Red Cell Distribution Width 16.0 H Platelet Count 530 H Mean Platelet Volume 8.8 Neutrophils % 63.6 Lymphocytes % 22.8 Monocytes % 10.1 Eosinophils % 1.6 Basophils % 0.3 Nucleated Red Blood Cells % 0.0 Neutrophils # 7.7 H Lymphocytes # 2.8 Monocytes # 1.2 H Eosinophils # 0.2 Basophils # 0.0 Nucleated Red Blood Cells # 0.0 Sodium Level 139 Potassium Level 3.2 L Chloride Level 112 H Carbon Dioxide Level 23 Anion Gap 7 L Blood Urea Nitrogen 14 Creatinine 0.61 Glucose Level 76 Calcium Level 6.0 L Medications Medications Current Medications Ondansetron HCl (Zofran Inj) 4 mg Q6H PRN IV NAUSEA AND/OR VOMITING; Start at 20:00 Miscellaneous Information (Pending Santyl Order For Wound Care) This patient martin... PRN PRN XX WOUND CARE; Start 09/29/17 at 16:30 Collagenase (Santyl) 1 applic DAILY TOP Last administered on 10/06/17 09:03; Admin Dose 1 APPLIC; Start 09/30/17 at 09:00 Collagenase (Santyl) 1 applic PRN PRN TOP WOUND CARE; Start 09/29/17 at 17:00 Potassium Chloride (Potassium Chloride Pwd/Soln) 40 meq TID PO Last administered on 10/06/17 09:00; Admin Dose 40 MEQ; Start 09/30/17 at 21:00 Zinc Sulfate (Zinc Sulfate) 220 mg DAILY PO Last administered on 10/06/17 09: 02; Admin Dose 220 MG; Start 10/01/17 at 09:00 Methadone HCl (Methadone) 40 mg DAILY PO Last administered on 10/06/17 09:01; Admin Dose 40 MG; Start 10/01/17 at 09:00 Famotidine 20 mg 20 mg DAILY PO Last administered on 10/06/17 09:01; Admin Dose 20 MG; Start 10/02/17 at 09:00 Ciprofloxacin/ Dextrose 200 ml @ 200 mls/hr Q12 IVPB Last administered on 10/06 08:58; Admin Dose 200 MLS/HR; Start 10/01/17 at 21:00 Ferric Sodium Gluconate Complex 125 mg/Sodium Chloride 110 ml @ 110 mls/hr Q24H IVPB Last administered on 10/05/17 12:17; Admin Dose 110 MLS/HR; Start 10/02/17 at 12:00; Stop 10/06/17 at 12:59 Vancomycin HCl (Vancocin) 250 ml @ 125 mls/hr Q12H IVPB Last administered on 10/06/17 03:31; Admin Dose 125 MLS/HR; Start 10/02/17 at 15:30 IV Flush (NS 10 ml) 10 ml PRN PRN IV IV PROTOCOL; Start 10/02/17 at 17:30 Enoxaparin Sodium (Lovenox) 50 mg Q12 SC Last administered on 10/06/17 09:05; Admin Dose 50 MG; Start 10/02/17 at 21:00 Ascorbic Acid (Vitamin C) 500 mg BID PO Last administered on 10/06/17 09:00; Admin Dose 500 MG; Start 10/04/17 at 21:00 Multivitamins Therapeutic (Theragran) 1 tab DAILY PO Last administered on 09:00; Admin Dose 1 TAB; Start 10/05/17 at 09:00 Metoprolol Tartrate (Lopressor) 12.5 mg BID PO Last administered on 10/05/17 21:05; Admin Dose 12.5 MG; Start 10/05/17 at 21:00 CAYDEN ROSE Oct 06, 2017 12:41
[2017-10-06] MEDS: SOD FERRIC GLUC COMPLX 125 MG in SOD CHLORIDE 0.9% 100 ML IVPB SCH (12:47)
--- NOTE | 2017-10-06 13:03 | CONS ---
Date/Time of Note Date/Time of Note DATE: 10/06/17 TIME: 13:02 Assessment/Plan Assessment/Plan Chief Complaint/Hosp Course SUBJECTIVE: No events overnight. The patient is awake, looks comfortable, no fevers overnight. MICROBIOLOGY: Right leg culture growing Strep pyogenes Corynebacterium species and Pseudomonas aeruginosa. Left buttock wound culture growing Strep pyogenes. Blood culture had been negative. ANTIMICROBIALS: The patient is on: 1. IV vancomycin. 2. Ciprofloxacin. PHYSICAL EXAMINATION: GENERAL: This is a fragile, well-developed, elderly woman who is awake, in no distress. HEENT: Head atraumatic, normocephalic. Sclerae anicteric. Buccal mucosa dry. NECK: Supple. CHEST: Rise symmetrical. Breath sounds diminished to bases. HEART: S1, S2. ABDOMEN: Soft, bowel tones present. EXTREMITIES: Without cyanosis. Bilateral lower extremities: Chronic wounds are more on the right. Left leg with an area of fluctuance below knee. ASSESSMENT: 1. Systemic inflammatory response syndrome with resolving leukocytosis, status post sepsis with fevers, tachycardia and encephalopathy. 2. Multiple infected wounds, questionable left leg abscess. 3. Chronic obstructive pulmonary disease. 4. Cachexia. 5. History of IV drug abuse. PLAN: The patient remains stable, wbc continues to trend down, continue abx, f /u podiatry and vascular rec-s [facility] staff Problems: Consultation Date/Type/Reason Admit Date/Time Sep 28, 2017 at 18:48 Type of Consultation: id Referring Provider: IMER MARTINEZ Exam/Review of Systems Vital Signs Vitals Vital Signs Date Time Temp Pulse Resp B/P Pulse Ox O2 Delivery O2 Flow Rate FiO2 10/06/17 07:33 98.7 95 16 108/67 94 10/05/17 13:20 Room Air Intake and Output 10/05/17 10/05/17 10/06/17 15:00 23:00 07:00 Intake Total 310 ml 966 ml 250 ml Output Total 1500 ml Balance 310 ml -534 ml 250 ml Results Result Diagram: 10/06/17 0517 10/06/17 0517 Results 24 hrs Laboratory Tests Test 10/06/17 05:17 White Blood Count 12.1 H Red Blood Count 3.11 L Hemoglobin 8.5 L Hematocrit 27.1 L Mean Corpuscular Volume 87.1 Mean Corpuscular Hemoglobin 27.3 L Mean Corpuscular Hemoglobin Concent 31.4 L Red Cell Distribution Width 16.0 H Platelet Count 530 H Mean Platelet Volume 8.8 Neutrophils % 63.6 Lymphocytes % 22.8 Monocytes % 10.1 Eosinophils % 1.6 Basophils % 0.3 Nucleated Red Blood Cells % 0.0 Neutrophils # 7.7 H Lymphocytes # 2.8 Monocytes # 1.2 H Eosinophils # 0.2 Basophils # 0.0 Nucleated Red Blood Cells # 0.0 Sodium Level 139 Potassium Level 3.2 L Chloride Level 112 H Carbon Dioxide Level 23 Anion Gap 7 L Blood Urea Nitrogen 14 Creatinine 0.61 Glucose Level 76 Calcium Level 6.0 L Medications Medications Current Medications Ondansetron HCl (Zofran Inj) 4 mg Q6H PRN IV NAUSEA AND/OR VOMITING; Start at 20:00 Miscellaneous Information (Pending Santyl Order For Wound Care) This patient martin... PRN PRN XX WOUND CARE; Start 09/29/17 at 16:30 Collagenase (Santyl) 1 applic DAILY TOP Last administered on 10/06/17 09:03; Admin Dose 1 APPLIC; Start 09/30/17 at 09:00 Collagenase (Santyl) 1 applic PRN PRN TOP WOUND CARE; Start 09/29/17 at 17:00 Potassium Chloride (Potassium Chloride Pwd/Soln) 40 meq TID PO Last administered on 10/06/17 09:00; Admin Dose 40 MEQ; Start 09/30/17 at 21:00 Zinc Sulfate (Zinc Sulfate) 220 mg DAILY PO Last administered on 10/06/17 09: 02; Admin Dose 220 MG; Start 10/01/17 at 09:00 Methadone HCl (Methadone) 40 mg DAILY PO Last administered on 10/06/17 09:01; Admin Dose 40 MG; Start 10/01/17 at 09:00 Famotidine 20 mg 20 mg DAILY PO Last administered on 10/06/17 09:01; Admin Dose 20 MG; Start 10/02/17 at 09:00 Ciprofloxacin/ Dextrose 200 ml @ 200 mls/hr Q12 IVPB Last administered on 10/06 08:58; Admin Dose 200 MLS/HR; Start 10/01/17 at 21:00 Vancomycin HCl (Vancocin) 250 ml @ 125 mls/hr Q12H IVPB Last administered on 10/06/17 03:31; Admin Dose 125 MLS/HR; Start 10/02/17 at 15:30 IV Flush (NS 10 ml) 10 ml PRN PRN IV IV PROTOCOL; Start 10/02/17 at 17:30 Enoxaparin Sodium (Lovenox) 50 mg Q12 SC Last administered on 10/06/17 09:05; Admin Dose 50 MG; Start 10/02/17 at 21:00 Ascorbic Acid (Vitamin C) 500 mg BID PO Last administered on 10/06/17 09:00; Admin Dose 500 MG; Start 10/04/17 at 21:00 Multivitamins Therapeutic (Theragran) 1 tab DAILY PO Last administered on 09:00; Admin Dose 1 TAB; Start 10/05/17 at 09:00 Metoprolol Tartrate (Lopressor) 12.5 mg BID PO Last administered on 10/05/17 21:05; Admin Dose 12.5 MG; Start 10/05/17 at 21:00 TELMA DUBON NP Oct 06, 2017 13:02
[2017-10-06 14:48] VITALS: BP 107/68; RESP 18
[2017-10-06 20:03] VITALS: BP 105/61; RESP 20
[2017-10-06] MEDS: ACETAMINOPHEN 325 MG TAB PO PRN (22:02)
--- NOTE | 2017-10-06 23:07 | PN ---
Date/Time of Note Date/Time of Note DATE: 10/06/17 TIME: 23:07 Assessment/Plan Lines/Catheters IV Catheter Type (from [facility]): PICC Line Alarcon in Place (from [facility]): No Assessment/Plan Chief Complaint/Hosp Course -Bilateral lower extremity atherosclerosis with right lower extremity ulcer: It seems the patient has some component of atherosclerotic disease; however, the patient does have faint pedal pulses in which my suspicion would be low for having a nonhealing wound as a result of her atherosclerotic disease. Her noninvasive vascular studies did not demonstrate flow limiting infrainguinal stenosis. It seems the patient's noncompliance and not coming to the hospital and receiving medical care may be the main issue of her ulceration that has worsened over the past month. -The patient will require debridement and Acell application if the wound is too large or defect is there -Left IJ DVT:Recommend for the patient to be anticoagulated with any PO regimen she can tolerate after our surgical debridement, also her being compliant and coverage by her insurance. At the moment keep her on IV anticoagulation prior to her possible debridement of the RLE. Continue with antibiotics. Discussed with the patient regarding smoking cessation and IV drug abuse cessation Optimize vascular status (BP meds, diet, nutrition, exercise, sugar control, antiplatelets). Thank you for allowing me to partake in the care of your patient. Please call with any questions. Problems: Subjective 24 Hr Interval Summary Constitutional: no complaints Exam/Review of Systems Vital Signs Vitals Vital Signs Date Time Temp Pulse Resp B/P Pulse Ox O2 Delivery O2 Flow Rate FiO2 10/10/17 21:39 92 16 108/62 10/10/17 20:00 98.6 96 10/09/17 13:15 Room Air Intake and Output 10/09/17 10/09/17 10/10/17 14:59 22:59 06:59 Intake Total 400 ml 1150 ml 1150 ml Output Total 0 ml 600 ml 1200 ml Balance 400 ml 550 ml -50 ml Exam Free Text/Dictation GENERAL: She is alert and oriented x3. PULMONARY: Clear to auscultation bilaterally. CARDIOVASCULAR: S1, S2 present. ABDOMEN: Soft, nontender, nondistended. Bowel sounds positive. RIGHT LOWER EXTREMITY: Palpable femoral pulse, faint pedal pulse. Motor, sensory intact. Cap refill 3 seconds. Javier ulcer with necrotic fibrinous tissue and eschar with surrounding erythema measuring about 6 x 2 x 0.5 cm depth. LEFT LOWER EXTREMITY: Palpable femoral pulse, faint pedal pulse. Motor, sensory intact. Cap refill 3 seconds. Results Result Diagram: 10/10/17 0523 10/10/17 0523 OSEAS MARTINEZ MD Oct 06, 2017 23:07
[2017-10-07 02:32] VITALS: BP 109/62; RESP 16
[2017-10-07] MEDS: VANCOMYCIN 1 GM in NS 250 ML IVPB SCH (04:18)
[2017-10-07 06:10] LABS: BASOPHIL # 0.1 10^3/ul (0.0-0.1); BASOPHILS % 0.6 % (0.0-2.0); EOSINOPHILS # 0.2 10^3/ul (0.0-0.5); EOSINOPHILS % 1.5 % (0.0-7.0); HEMATOCRIT 26.4 % (37.0-47.0); HEMOGLOBIN 8.5 g/dl (12.0-16.0); LYMPHOCYTES # 3.1 10^3/ul (0.8-2.9); LYMPHOCYTES % 26.3 % (15.0-51.0); MEAN CORPUSCULAR HEMOGLOBIN 28.1 pg (29.0-33.0); MEAN CORPUSCULAR HGB CONC 32.2 g/dl (32.0-37.0); MEAN CORPUSCULAR VOLUME 87.4 fl (82.0-101.0); MEAN PLATELET VOLUME 8.8 fl (7.4-10.4); MONOCYTE # 1.2 10^3/ul (0.3-0.9); MONOCYTES % 10.2 % (0.0-11.0); NEUTROPHIL # 7.1 10^3/ul (1.6-7.5); NEUTROPHILS % 60.2 % (39.0-77.0); PLATELET COUNT 487 10^3/UL (140-415); RED BLOOD COUNT 3.02 10^6/ul (4.20-5.40); RED CELL DISTRIBUTION WIDTH 16.4 % (11.5-14.5); WHITE BLOOD COUNT 11.8 10^3/ul (4.8-10.8)
[2017-10-07 06:25] LABS: CALCIUM 8.7 mg/dl (8.4-10.2); CREATININE 0.79 mg/dl (0.44-1.00); MAGNESIUM 1.6 mg/dl (1.7-2.5); POTASSIUM 4.7 mmol/L (3.5-5.1)
[2017-10-07 07:29] VITALS: BP 116/67; RESP 16
[2017-10-07] MEDS: CIPROFLOXACIN 400MG/D5W 200 ML IVPB SCH ×2 (08:51→20:26)
[2017-10-07] MEDS: METHADONE 10 MG TAB PO SCH (08:57)
[2017-10-07] MEDS: ZINC SULFATE 220 MG CAP PO SCH (08:57)
[2017-10-07] MEDS: FAMOTIDINE 20 MG TAB PO SCH (08:57)
[2017-10-07] MEDS: MULTIVITAMINS THERAPEUTIC TAB PO SCH (08:57)
[2017-10-07] MEDS: ASCORBIC ACID 500 MG TAB PO SCH ×2 (08:57→20:26)
[2017-10-07] MEDS: POTASSIUM CHLORIDE 20 MEQ POWDER FOR ORAL SOLN PO SCH ×3 (08:58→21:00)
[2017-10-07] MEDS: METOPROLOL 25 MG TAB PO SCH ×2 (09:01→21:00)
[2017-10-07] MEDS: ENOXAPARIN 100 MG/ML SYG SC SCH (09:06)
[2017-10-07] MEDS: COLLAGENASE 30 GM TUBE TOP SCH (09:07)
--- NOTE | 2017-10-07 12:02 | PN ---
Date/Time of Note Date/Time of Note DATE: 10/07/17 TIME: 11:57 Assessment/Plan VTE Prophylaxis VTE Prophylaxis Intervention: heparin Lines/Catheters IV [facility]ter Type (from [facility]): PICC Line Central line still needed: Yes Urinary Cath still in place: No Assessment/Plan Problems: (1) Leg wound, right Status: Acute Comment: She is scheduled for surgical treatment by Dr. Mcdonnell on Monday, 09 October. Her lab tests are relatively within line although recheck them including her coags tomorrow. In addition to this she is cleared for surgery from medical standpoint Qualifiers: Encounter type: initial encounter Qualified Code: S81.801A - Wound of right lower extremity, initial encounter (2) Homelessness Status: Chronic Comment: Social work to assess. Especially in the setting of polydrug abuse and active heroin usage. Please note that she is beyond the point where we should be concerned about withdrawal (3) Polydrug abuse, continuous Status: Chronic Comment: She has been seen by palliative care. She remains on her outpatient dosage of methadone. We should not be concerned about the possibility of withdrawal in this setting as she has cleared that timeframe. (4) Iron deficiency anemia Status: Chronic Comment: She has received 5 doses of Ferrlecit. I did put her on some oral and give her 1 additional dose of Ferrlecit should be she should be starting to rebuild slowly Qualifiers: Iron deficiency anemia type: unspecified iron deficiency Qualified Code: D50.9 - Iron deficiency anemia, unspecified iron deficiency anemia type (5) Chronic active hepatitis C Status: Chronic Comment: Noted. Blood and body fluid precautions for the nursing staff and the surgical team (6) Vitamin D deficiency Status: Chronic Comment: Replacement (7) Acute thrombosis of left internal jugular vein Status: Acute Comment: Was due to an IJ line placed at another facility. Please see the notes from vascular surgery about how to manage this. (8) COPD (chronic obstructive pulmonary disease) Status: Chronic Comment: Secondary to tobacco. At this time no indication for aggressive intervention. This is part of the reason aside from her social circumstances for her being underweight Qualifiers: COPD type: emphysema Emphysema type: panlobular Qualified Code: J43.1 - Panlobular emphysema (9) Combined systolic and diastolic cardiac dysfunction Status: Acute Comment: This is a new diagnosis. Part of this is undoubtedly due to her usage of crystal meth. Subjective 24 Hr Interval Summary Free Text/Dictation Patient reports she is unaware of all of her medical diagnoses. She reports she is having chronic back pain. Denies any fevers chills or sweats Constitutional: no complaints Respiratory: no complaints (Denies cough or shortness of breath) Cardiovascular: no complaints Gastrointestinal: no complaints Genitourinary: no complaints Musculoskeletal: no complaints Exam/Review of Systems Vital Signs Vitals Vital Signs Date Time Temp Pulse Resp B/P Pulse Ox O2 Delivery O2 Flow Rate FiO2 10/07/17 07:29 98.2 85 16 116/67 97 10/05/17 13:20 Room Air Intake and Output 10/06/17 10/06/17 10/07/17 15:00 23:00 07:00 Intake Total 1010 ml 1430 ml 850 ml Output Total 700 ml 980 ml 1700 ml Balance 310 ml 450 ml -850 ml Exam Constitutional: alert, oriented Neck: non-tender, supple Respiratory: clear to auscultation, diminished breath sounds Cardiovascular: nl pulses, regular rate and rhythm Gastrointestinal: hepatomegaly, non-tender, soft, splenomegaly Extremities: normal pulses Results Result Diagram: 10/07/17 0537 10/07/17 0537 Results 24 hrs Laboratory Tests Test 10/07/17 02:24 10/07/17 05:37 10/07/17 10:24 Vancomycin Level Trough 17.9 White Blood Count 11.8 H Red Blood Count 3.02 L Hemoglobin 8.5 L Hematocrit 26.4 L Mean Corpuscular Volume 87.4 Mean Corpuscular Hemoglobin 28.1 L Mean Corpuscular Hemoglobin Concent 32.2 Red Cell Distribution Width 16.4 H Platelet Count 487 H Mean Platelet Volume 8.8 Neutrophils % 60.2 Lymphocytes % 26.3 Monocytes % 10.2 Eosinophils % 1.5 Basophils % 0.6 Nucleated Red Blood Cells % 0.0 Neutrophils # 7.1 Lymphocytes # 3.1 H Monocytes # 1.2 H Eosinophils # 0.2 Basophils # 0.1 Nucleated Red Blood Cells # 0.0 Sodium Level 135 Potassium Level 4.7 Chloride Level 101 # Carbon Dioxide Level 31 Anion Gap 8 Blood Urea Nitrogen 18 Creatinine 0.79 Glucose Level 92 Calcium Level 8.7 Magnesium Level 1.6 L Lab Scanned Report REFERENCE LAB Medications Medications Current Medications Ondansetron HCl (Zofran Inj) 4 mg Q6H PRN IV NAUSEA AND/OR VOMITING; Start at 20:00 Miscellaneous Information (Pending Santyl Order For Wound Care) This patient martin... PRN PRN XX WOUND CARE; Start 09/29/17 at 16:30 Collagenase (Santyl) 1 applic DAILY TOP Last administered on 10/07/17 09:07; Admin Dose 1 APPLIC; Start 09/30/17 at 09:00 Collagenase (Santyl) 1 applic PRN PRN TOP WOUND CARE; Start 09/29/17 at 17:00 Potassium Chloride (Potassium Chloride Pwd/Soln) 40 meq TID PO Last administered on 10/06/17 22:25; Admin Dose 40 MEQ; Start 09/30/17 at 21:00 Zinc Sulfate (Zinc Sulfate) 220 mg DAILY PO Last administered on 10/07/17 08: 57; Admin Dose 220 MG; Start 10/01/17 at 09:00 Methadone HCl (Methadone) 40 mg DAILY PO Last administered on 10/07/17 08:57; Admin Dose 40 MG; Start 10/01/17 at 09:00 Famotidine 20 mg 20 mg DAILY PO Last administered on 10/07/17 08:57; Admin Dose 20 MG; Start 10/02/17 at 09:00 Ciprofloxacin/ Dextrose (Cipro Ivpb) 200 ml @ 200 mls/hr Q12 IVPB Last administered on 10/07/17 08:51; Admin Dose 200 MLS/HR; Start 10/01/17 at 21:00 IV Flush (NS 10 ml) 10 ml PRN PRN IV IV PROTOCOL; Start 10/02/17 at 17:30 Enoxaparin Sodium (Lovenox) 50 mg Q12 SC Last administered on 10/07/17 09:06; Admin Dose 50 MG; Start 10/02/17 at 21:00 Ascorbic Acid (Vitamin C) 500 mg BID PO Last administered on 10/07/17 08:57; Admin Dose 500 MG; Start 10/04/17 at 21:00 Multivitamins Therapeutic (Theragran) 1 tab DAILY PO Last administered on 08:57; Admin Dose 1 TAB; Start 10/05/17 at 09:00 Metoprolol Tartrate (Lopressor) 12.5 mg BID PO Last administered on 10/07/17 09:01; Admin Dose 12.5 MG; Start 10/05/17 at 21:00 Acetaminophen 650 mg 650 mg Q6H PRN PO PAIN AND OR ELEVATED TEMP Last administered on 10/06/17 22:02; Admin Dose 650 MG; Start 10/06/17 at 20:30 Vancomycin HCl/ Dextrose/Water (Vancocin/D5W) 150 ml @ 75 mls/hr Q12H IVPB ; Start 10/07/17 at 22:00 ROSIE PALOMARES MD Oct 07, 2017 12:02
[2017-10-07] MEDS ORDERED: SOD FERRIC GLUC COMPLX 125 MG in SOD CHLORIDE 0.9% 100 ML IVPB ONE (13:00)
[2017-10-07] MEDS: CHOLECALCIFEROL 2,000 UNIT CAP PO SCH (13:28)
[2017-10-07] MEDS: PHYTONADIONE 10 MG/ML INJ IM ONE ×2 (13:30→13:33)
--- NOTE | 2017-10-07 13:49 | CONS ---
Date/Time of Note Date/Time of Note DATE: 10/07/17 TIME: 13:45 Consultation Date/Type/Reason Admit Date/Time SUBJECTIVE: 62y/o female being treated for LE infected wounds, S/P sepsis. No events overnight. The patient is awake, looks comfortable, no fevers. VS: stable. LABS: WBC=11.8, wbc continues to trend down. BMP-WNL MICROBIOLOGY: Right leg culture growing Strep pyogenes Corynebacterium species and Pseudomonas aeruginosa. Left buttock wound culture growing Strep pyogenes. Blood culture had been negative. ANTIMICROBIALS: The patient is on: 1. IV vancomycin. 2. Ciprofloxacin. PHYSICAL EXAMINATION: GENERAL: This is a fragile, well-developed, elderly woman who is awake, in no distress. HEENT: Head atraumatic, normocephalic. Sclerae anicteric. Buccal mucosa dry. NECK: Supple. CHEST: Rise symmetrical. Breath sounds diminished to bases. HEART: S1, S2. ABDOMEN: Soft, bowel tones present. EXTREMITIES: Without cyanosis. Bilateral lower extremities: Chronic wounds are more on the right. Left leg with an area of fluctuance below knee. ASSESSMENT: 1. Systemic inflammatory response syndrome with resolving leukocytosis. 2. Status post sepsis with fevers, tachycardia. 3. Acute encephalopathy. 2. Multiple infected wounds, questionable left leg abscess. 3. Chronic obstructive pulmonary disease. 4. Cachexia. 5. History of IV drug abuse. PLAN: The patient remains stable. Continue abx, Podiatry and vascular recommendations. Initial Consult Date Type of Consultation: id Referring Provider: IMER MARTINEZ Exam/Review of Systems Vital Signs Vitals Vital Signs Date Time Temp Pulse Resp B/P Pulse Ox O2 Delivery O2 Flow Rate FiO2 10/07/17 07:29 98.2 85 16 116/67 97 10/05/17 13:20 Room Air Intake and Output 10/06/17 10/06/17 10/07/17 15:00 23:00 07:00 Intake Total 1010 ml 1430 ml 850 ml Output Total 700 ml 980 ml 1700 ml Balance 310 ml 450 ml -850 ml Results Result Diagram: 10/07/17 0537 10/07/17 0537 Results 24 hrs Laboratory Tests Test 10/07/17 02:24 10/07/17 05:37 10/07/17 10:24 Vancomycin Level Trough 17.9 White Blood Count 11.8 H Red Blood Count 3.02 L Hemoglobin 8.5 L Hematocrit 26.4 L Mean Corpuscular Volume 87.4 Mean Corpuscular Hemoglobin 28.1 L Mean Corpuscular Hemoglobin Concent 32.2 Red Cell Distribution Width 16.4 H Platelet Count 487 H Mean Platelet Volume 8.8 Neutrophils % 60.2 Lymphocytes % 26.3 Monocytes % 10.2 Eosinophils % 1.5 Basophils % 0.6 Nucleated Red Blood Cells % 0.0 Neutrophils # 7.1 Lymphocytes # 3.1 H Monocytes # 1.2 H Eosinophils # 0.2 Basophils # 0.1 Nucleated Red Blood Cells # 0.0 Sodium Level 135 Potassium Level 4.7 Chloride Level 101 # Carbon Dioxide Level 31 Anion Gap 8 Blood Urea Nitrogen 18 Creatinine 0.79 Glucose Level 92 Calcium Level 8.7 Magnesium Level 1.6 L Lab Scanned Report REFERENCE LAB Medications Medications Current Medications Ondansetron HCl (Zofran Inj) 4 mg Q6H PRN IV NAUSEA AND/OR VOMITING; Start at 20:00 Miscellaneous Information (Pending Santyl Order For Wound Care) This patient martin... PRN PRN XX WOUND CARE; Start 09/29/17 at 16:30 Collagenase (Santyl) 1 applic DAILY TOP Last administered on 10/07/17 09:07; Admin Dose 1 APPLIC; Start 09/30/17 at 09:00 Collagenase (Santyl) 1 applic PRN PRN TOP WOUND CARE; Start 09/29/17 at 17:00 Potassium Chloride (Potassium Chloride Pwd/Soln) 40 meq TID PO Last administered on 10/06/17 22:25; Admin Dose 40 MEQ; Start 09/30/17 at 21:00 Zinc Sulfate (Zinc Sulfate) 220 mg DAILY PO Last administered on 10/07/17 08: 57; Admin Dose 220 MG; Start 10/01/17 at 09:00 Methadone HCl (Methadone) 40 mg DAILY PO Last administered on 10/07/17 08:57; Admin Dose 40 MG; Start 10/01/17 at 09:00 Famotidine 20 mg 20 mg DAILY PO Last administered on 10/07/17 08:57; Admin Dose 20 MG; Start 10/02/17 at 09:00 Ciprofloxacin/ Dextrose (Cipro Ivpb) 200 ml @ 200 mls/hr Q12 IVPB Last administered on 10/07/17 08:51; Admin Dose 200 MLS/HR; Start 10/01/17 at 21:00 IV Flush (NS 10 ml) 10 ml PRN PRN IV IV PROTOCOL; Start 10/02/17 at 17:30 Ascorbic Acid (Vitamin C) 500 mg BID PO Last administered on 10/07/17 08:57; Admin Dose 500 MG; Start 10/04/17 at 21:00 Multivitamins Therapeutic (Theragran) 1 tab DAILY PO Last administered on 08:57; Admin Dose 1 TAB; Start 10/05/17 at 09:00 Metoprolol Tartrate (Lopressor) 12.5 mg BID PO Last administered on 10/07/17 09:01; Admin Dose 12.5 MG; Start 10/05/17 at 21:00 Acetaminophen 650 mg 650 mg Q6H PRN PO PAIN AND OR ELEVATED TEMP Last administered on 10/06/17 22:02; Admin Dose 650 MG; Start 10/06/17 at 20:30 Vancomycin HCl/ Dextrose/Water (Vancocin/D5W) 150 ml @ 75 mls/hr Q12H IVPB ; Start 10/07/17 at 22:00 Ferrous Gluconate 325 mg 325 mg BID PO ; Start 10/07/17 at 21:00 Ferric Sodium Gluconate Complex/ Sodium Chloride (Ferrlecit/NS) 110 ml @ 100 mls/hr ONCE ONCE IVPB Last administered on 10/07/17 13:26; Admin Dose 100 MLS /HR; Start 10/07/17 at 13:00; Stop 10/07/17 at 14:05 Cholecalciferol (Vitamin D) 2,000 unit DAILY PO Last administered on 10/07/17 13:28; Admin Dose 2,000 UNIT; Start 10/07/17 at 12:30 Enoxaparin Sodium (Lovenox) 50 mg Q12 SC ; Start 10/07/17 at 21:00 IAM VARGAS Oct 07, 2017 13:49
[2017-10-07 14:00] VITALS: BP 93/55; RESP 16
[2017-10-07] MEDS ORDERED: PHYTONADIONE 10 MG/ML INJ IM ONE (14:00)
--- NOTE | 2017-10-07 14:00 | CONS ---
Date/Time of Note Date/Time of Note DATE: 10/07/17 TIME: 13:58 Assessment/Plan Assessment/Plan Chief Complaint/Hosp Course IMPRESSION: 1. Preoperative evaluation prior to placement of a peritoneal dialysis catheter.-negative trop x 3/EF 45-50% by echo/no sig valve lesions 2. Hypertension, under reasonable control. 3. Left lower extremity deep venous thrombosis. 4. Anemia. 5. Prior failed chest wall catheters. 6. cardiomyopathy-EF 45%-? due to substance abuse with amphetamines Recc: -continue anticoagulation withlovenox -Continue local wound care -Continue abx's -Continue low dose BB as tolerated -Will discuss risk of surgery with vascular surgery. Problems: Consultation Date/Type/Reason Admit Date/Time Sep 28, 2017 at 18:48 Initial Consult Date 10/04/2017 Type of Consultation: cardiology Reason for Consultation pre-op Referring Provider: IMER MARTINEZ Exam/Review of Systems Vital Signs Vitals Vital Signs Date Time Temp Pulse Resp B/P Pulse Ox O2 Delivery O2 Flow Rate FiO2 10/07/17 07:29 98.2 85 16 116/67 97 10/05/17 13:20 Room Air Intake and Output 10/06/17 10/06/17 10/07/17 14:59 22:59 06:59 Intake Total 1010 ml 1230 ml 1050 ml Output Total 700 ml 980 ml 1700 ml Balance 310 ml 250 ml -650 ml Exam Review of Systems: CONSTITUTIONAL: No fevers, chills. PULMONARY: No sob CARDIOVASCULAR: No chest pain/palpitations GASTROINTESTINAL: No nausea/vomiting. GENITOURINARY: No hematuria/dysuria. MUSCULOSKELETAL: No myagias/arthalgias. PSYCHIATRIC: The patient denies depression. NEUROLOGIC: No weakness Constitutional: alert, oriented Psych: no complaints Head: normocephalic ENMT: mucosa pink and moist Neck: jvd (8 cm water), supple Respiratory: clear to auscultation Cardiovascular: regular rate and rhythm Gastrointestinal: non-tender, soft Musculoskeletal: muscle tone (normal) Extremities: other (RLL covered by dressing) Neurological: other (No focal deficits) Results Result Diagram: 10/07/17 0537 10/07/17 0537 Results 24 hrs Laboratory Tests Test 10/07/17 02:24 10/07/17 05:37 10/07/17 10:24 Vancomycin Level Trough 17.9 White Blood Count 11.8 H Red Blood Count 3.02 L Hemoglobin 8.5 L Hematocrit 26.4 L Mean Corpuscular Volume 87.4 Mean Corpuscular Hemoglobin 28.1 L Mean Corpuscular Hemoglobin Concent 32.2 Red Cell Distribution Width 16.4 H Platelet Count 487 H Mean Platelet Volume 8.8 Neutrophils % 60.2 Lymphocytes % 26.3 Monocytes % 10.2 Eosinophils % 1.5 Basophils % 0.6 Nucleated Red Blood Cells % 0.0 Neutrophils # 7.1 Lymphocytes # 3.1 H Monocytes # 1.2 H Eosinophils # 0.2 Basophils # 0.1 Nucleated Red Blood Cells # 0.0 Sodium Level 135 Potassium Level 4.7 Chloride Level 101 # Carbon Dioxide Level 31 Anion Gap 8 Blood Urea Nitrogen 18 Creatinine 0.79 Glucose Level 92 Calcium Level 8.7 Magnesium Level 1.6 L Lab Scanned Report REFERENCE LAB Medications Medications Current Medications Ondansetron HCl (Zofran Inj) 4 mg Q6H PRN IV NAUSEA AND/OR VOMITING; Start at 20:00 Miscellaneous Information (Pending Santyl Order For Wound Care) This patient martin... PRN PRN XX WOUND CARE; Start 09/29/17 at 16:30 Collagenase (Santyl) 1 applic DAILY TOP Last administered on 10/07/17 09:07; Admin Dose 1 APPLIC; Start 09/30/17 at 09:00 Collagenase (Santyl) 1 applic PRN PRN TOP WOUND CARE; Start 09/29/17 at 17:00 Potassium Chloride (Potassium Chloride Pwd/Soln) 40 meq TID PO Last administered on 10/06/17 22:25; Admin Dose 40 MEQ; Start 09/30/17 at 21:00 Zinc Sulfate (Zinc Sulfate) 220 mg DAILY PO Last administered on 10/07/17 08: 57; Admin Dose 220 MG; Start 10/01/17 at 09:00 Methadone HCl (Methadone) 40 mg DAILY PO Last administered on 10/07/17 08:57; Admin Dose 40 MG; Start 10/01/17 at 09:00 Famotidine 20 mg 20 mg DAILY PO Last administered on 10/07/17 08:57; Admin Dose 20 MG; Start 10/02/17 at 09:00 Ciprofloxacin/ Dextrose (Cipro Ivpb) 200 ml @ 200 mls/hr Q12 IVPB Last administered on 10/07/17 08:51; Admin Dose 200 MLS/HR; Start 10/01/17 at 21:00 IV Flush (NS 10 ml) 10 ml PRN PRN IV IV PROTOCOL; Start 10/02/17 at 17:30 Ascorbic Acid (Vitamin C) 500 mg BID PO Last administered on 10/07/17 08:57; Admin Dose 500 MG; Start 10/04/17 at 21:00 Multivitamins Therapeutic (Theragran) 1 tab DAILY PO Last administered on 08:57; Admin Dose 1 TAB; Start 10/05/17 at 09:00 Metoprolol Tartrate (Lopressor) 12.5 mg BID PO Last administered on 10/07/17 09:01; Admin Dose 12.5 MG; Start 10/05/17 at 21:00 Acetaminophen 650 mg 650 mg Q6H PRN PO PAIN AND OR ELEVATED TEMP Last administered on 10/06/17 22:02; Admin Dose 650 MG; Start 10/06/17 at 20:30 Vancomycin HCl/ Dextrose/Water (Vancocin/D5W) 150 ml @ 75 mls/hr Q12H IVPB ; Start 10/07/17 at 22:00 Ferrous Gluconate 325 mg 325 mg BID PO ; Start 10/07/17 at 21:00 Ferric Sodium Gluconate Complex/ Sodium Chloride (Ferrlecit/NS) 110 ml @ 100 mls/hr ONCE ONCE IVPB Last administered on 10/07/17 13:26; Admin Dose 100 MLS /HR; Start 10/07/17 at 13:00; Stop 10/07/17 at 14:05 Cholecalciferol (Vitamin D) 2,000 unit DAILY PO Last administered on 10/07/17 13:28; Admin Dose 2,000 UNIT; Start 10/07/17 at 12:30 Enoxaparin Sodium (Lovenox) 50 mg Q12 SC ; Start 10/07/17 at 21:00 Phytonadione (Vitamin K) 10 mg ONCE ONCE IM ; Start 10/07/17 at 14:00; Stop at 14:01 CAYDEN ROSE Oct 07, 2017 14:00
[2017-10-07 15:02] VITALS: BP 102/55; PULSE 86
[2017-10-07] MEDS: FERROUS GLUCONATE (EC) 325 MG TAB PO SCH (20:26)
[2017-10-07 20:40] VITALS: BP 109/65; RESP 18
[2017-10-07] MEDS: ENOXAPARIN 60 MG/0.6 ML SYG SC SCH (20:46)
[2017-10-07] MEDS: VANCOMYCIN 750 MG in DEXTROSE 5% 150 ML IVPB SCH (22:15)
[2017-10-08 02:36] VITALS: BP 101/62; RESP 16
[2017-10-08 05:38] LABS: BASOPHIL # 0.1 10^3/ul (0.0-0.1); BASOPHILS % 0.5 % (0.0-2.0); EOSINOPHILS # 0.2 10^3/ul (0.0-0.5); EOSINOPHILS % 2.2 % (0.0-7.0); HEMATOCRIT 27.1 % (37.0-47.0); HEMOGLOBIN 8.7 g/dl (12.0-16.0); LYMPHOCYTES # 2.7 10^3/ul (0.8-2.9); MEAN CORPUSCULAR HEMOGLOBIN 27.8 pg (29.0-33.0); MEAN CORPUSCULAR HGB CONC 32.1 g/dl (32.0-37.0); MEAN CORPUSCULAR VOLUME 86.6 fl (82.0-101.0); MEAN PLATELET VOLUME 8.6 fl (7.4-10.4); MONOCYTES % 9.6 % (0.0-11.0); NEUTROPHILS % 59.8 % (39.0-77.0); PLATELET COUNT 510 10^3/UL (140-415); RED BLOOD COUNT 3.13 10^6/ul (4.20-5.40); RED CELL DISTRIBUTION WIDTH 16.9 % (11.5-14.5)
[2017-10-08 05:58] LABS: CALCIUM 8.3 mg/dl (8.4-10.2); CREATININE 0.7 mg/dl (0.44-1.00)
[2017-10-08 06:19] LABS: INR 1.13; PROTIME 14.7 Sec (11.9-14.9); PT RATIO 1.1
[2017-10-08 06:20] LABS: PARTIAL THROMBOPLASTIN TIME 47.9 Sec (25.0-35.0)
[2017-10-08 07:36] VITALS: BP 118/69; RESP 16
[2017-10-08] MEDS: POTASSIUM CHLORIDE 20 MEQ POWDER FOR ORAL SOLN PO SCH (09:00)
[2017-10-08] MEDS: METOPROLOL 25 MG TAB PO SCH ×2 (09:00→21:00)
[2017-10-08] MEDS: COLLAGENASE 30 GM TUBE TOP SCH (09:00)
[2017-10-08] MEDS: CIPROFLOXACIN 400MG/D5W 200 ML IVPB SCH ×2 (09:02→21:10)
[2017-10-08] MEDS: MULTIVITAMINS THERAPEUTIC TAB PO SCH (09:05)
[2017-10-08] MEDS: FERROUS GLUCONATE (EC) 325 MG TAB PO SCH ×2 (09:05→21:10)
[2017-10-08] MEDS: ASCORBIC ACID 500 MG TAB PO SCH ×2 (09:06→21:10)
[2017-10-08] MEDS: CHOLECALCIFEROL 2,000 UNIT CAP PO SCH (09:06)
[2017-10-08] MEDS: ZINC SULFATE 220 MG CAP PO SCH (09:06)
[2017-10-08] MEDS: FAMOTIDINE 20 MG TAB PO SCH (09:06)
[2017-10-08] MEDS: METHADONE 10 MG TAB PO SCH (09:07)
[2017-10-08] MEDS: ENOXAPARIN 60 MG/0.6 ML SYG SC SCH ×2 (09:11→21:15)
[2017-10-08] MEDS: VANCOMYCIN 750 MG in DEXTROSE 5% 150 ML IVPB SCH ×2 (12:21→23:15)
--- NOTE | 2017-10-08 12:51 | PN ---
Date/Time of Note Date/Time of Note DATE: 10/08/17 TIME: 12:46 Assessment/Plan VTE Prophylaxis VTE Prophylaxis Intervention: heparin Lines/Catheters IV [facility] (from [facility] PICC Line Central line still needed: Yes Urinary Cath still in place: No Assessment/Plan Problems: (1) Leg wound, right Status: Acute Comment: For surgical debridement in the morning, medically clear Qualifiers: Encounter type: initial encounter Qualified Code: S81.801A - Wound of right lower extremity, initial encounter (2) Iron deficiency anemia Status: Chronic Comment: Has received iron intravenously is continue to receive it orally Qualifiers: Iron deficiency anemia type: unspecified iron deficiency Qualified Code: D50.9 - Iron deficiency anemia, unspecified iron deficiency anemia type (3) COPD (chronic obstructive pulmonary disease) Status: Chronic Comment: Stable on treatment Qualifiers: COPD type: emphysema Emphysema type: panlobular Qualified Code: J43.1 - Panlobular emphysema (4) Combined systolic and diastolic cardiac dysfunction Status: Acute Comment: Noted and stable on treatment (5) Chronic active hepatitis C Status: Chronic Comment: Noted as above from yesterday's note blood and body fluid precautions (6) Polydrug abuse, continuous Status: Chronic Comment: Noted. I am going to stop the oral potassium replacement at this time follow Subjective 24 Hr Interval Summary Free Text/Dictation Patient complains of the oral potassium replacement causes her diarrhea otherwise no new complaints Constitutional: no complaints Respiratory: no complaints Cardiovascular: no complaints Gastrointestinal: no complaints Genitourinary: no complaints Musculoskeletal: back pain (Stable) Exam/Review of Systems Vital Signs Vitals Vital Signs Date Time Temp Pulse Resp B/P Pulse Ox O2 Delivery O2 Flow Rate FiO2 10/08/17 07:36 98.6 87 16 118/69 96 10/05/17 13:20 Room Air Intake and Output 10/07/17 10/07/17 10/08/17 14:59 22:59 06:59 Intake Total 3320 ml 1110 ml Output Total 1980 ml 1800 ml Balance 1340 ml -690 ml Exam Constitutional: alert, oriented Neck: non-tender, supple Respiratory: clear to auscultation, normal air movement Cardiovascular: nl pulses, regular rate and rhythm Gastrointestinal: nl liver, spleen, non-tender, soft Results Result Diagram: 10/08/17 0506 10/08/17 0506 Results 24 hrs Laboratory Tests Test 10/08/17 05:06 10/08/17 05:38 White Blood Count 10.0 Red Blood Count 3.13 L Hemoglobin 8.7 L Hematocrit 27.1 L Mean Corpuscular Volume 86.6 Mean Corpuscular Hemoglobin 27.8 L Mean Corpuscular Hemoglobin Concent 32.1 Red Cell Distribution Width 16.9 H Platelet Count 510 H Mean Platelet Volume 8.6 Neutrophils % 59.8 Lymphocytes % 27.0 Monocytes % 9.6 Eosinophils % 2.2 Basophils % 0.5 Nucleated Red Blood Cells % 0.0 Neutrophils # 6.0 Lymphocytes # 2.7 Monocytes # 1.0 H Eosinophils # 0.2 Basophils # 0.1 Nucleated Red Blood Cells # 0.0 Prothrombin Time 14.7 Prothrombin Time Ratio 1.1 INR International Normalized Ratio 1.13 Activated Partial Thromboplast Time 47.9 H Sodium Level 132 L Potassium Level 4.0 Chloride Level 97 Carbon Dioxide Level 28 Anion Gap 11 Blood Urea Nitrogen 18 Creatinine 0.70 Glucose Level 130 Calcium Level 8.3 L Lab Scanned Report BLOOD TRANSFUSION Medications Medications Current Medications Ondansetron HCl (Zofran Inj) 4 mg Q6H PRN IV NAUSEA AND/OR VOMITING; Start at 20:00 Miscellaneous Information (Pending Santyl Order For Wound Care) This patient martin... PRN PRN XX WOUND CARE; Start 09/29/17 at 16:30 Collagenase (Santyl) 1 applic DAILY TOP Last administered on 10/08/17 09:00; Admin Dose 1 APPLIC; Start 09/30/17 at 09:00 Collagenase (Santyl) 1 applic PRN PRN TOP WOUND CARE; Start 09/29/17 at 17:00 Potassium Chloride (Potassium Chloride Pwd/Soln) 40 meq TID PO Last administered on 10/06/17 22:25; Admin Dose 40 MEQ; Start 09/30/17 at 21:00 Zinc Sulfate (Zinc Sulfate) 220 mg DAILY PO Last administered on 10/08/17 09: 06; Admin Dose 220 MG; Start 10/01/17 at 09:00 Methadone HCl (Methadone) 40 mg DAILY PO Last administered on 10/08/17 09:07; Admin Dose 40 MG; Start 10/01/17 at 09:00 Famotidine 20 mg 20 mg DAILY PO Last administered on 10/08/17 09:06; Admin Dose 20 MG; Start 10/02/17 at 09:00 Ciprofloxacin/ Dextrose (Cipro Ivpb) 200 ml @ 200 mls/hr Q12 IVPB Last administered on 10/08/17 09:02; Admin Dose 200 MLS/HR; Start 10/01/17 at 21:00 IV Flush (NS 10 ml) 10 ml PRN PRN IV IV PROTOCOL; Start 10/02/17 at 17:30 Ascorbic Acid (Vitamin C) 500 mg BID PO Last administered on 10/08/17 09:06; Admin Dose 500 MG; Start 10/04/17 at 21:00 Multivitamins Therapeutic (Theragran) 1 tab DAILY PO Last administered on 09:05; Admin Dose 1 TAB; Start 10/05/17 at 09:00 Metoprolol Tartrate (Lopressor) 12.5 mg BID PO Last administered on 10/07/17 09:01; Admin Dose 12.5 MG; Start 10/05/17 at 21:00 Acetaminophen 650 mg 650 mg Q6H PRN PO PAIN AND OR ELEVATED TEMP Last administered on 10/06/17 22:02; Admin Dose 650 MG; Start 10/06/17 at 20:30 Vancomycin HCl/ Dextrose/Water (Vancocin/D5W) 150 ml @ 75 mls/hr Q12H IVPB Last administered on 10/08/17 12:21; Admin Dose 75 MLS/HR; Start 10/07/17 at 22 :00 Ferrous Gluconate (Fergon) 325 mg BID PO Last administered on 10/08/17 09:05; Admin Dose 325 MG; Start 10/07/17 at 21:00 Cholecalciferol (Vitamin D) 2,000 unit DAILY PO Last administered on 10/08/17 09:06; Admin Dose 2,000 UNIT; Start 10/07/17 at 12:30 Enoxaparin Sodium (Lovenox) 50 mg Q12 SC Last administered on 10/08/17 09:11; Admin Dose 50 MG; Start 10/07/17 at 21:00 ROSIE PALOMARES MD Oct 08, 2017 12:51
--- NOTE | 2017-10-08 13:38 | CONS ---
Date/Time of Note Date/Time of Note DATE: 10/08/17 TIME: 13:37 Assessment/Plan Assessment/Plan Chief Complaint/Hosp Course IMPRESSION: 1. Preoperative evaluation prior to placement of a peritoneal dialysis catheter.-negative trop x 3/EF 45-50% by echo/no sig valve lesions 2. Hypertension, under reasonable control. 3. Left lower extremity deep venous thrombosis. 4. Anemia. 5. Prior failed chest wall catheters. 6. cardiomyopathy-EF 45%-? due to substance abuse with amphetamines Recc: -continue anticoagulation with lovenox -Continue local wound care -Continue abx's -Continue low dose BB as tolerated -Pnding LE debridement. Will discuss risk of surgery with vascular surgery. Problems: Consultation Date/Type/Reason Admit Date/Time Sep 28, 2017 at 18:48 Initial Consult Date 10/04/2017 Type of Consultation: cardiology Reason for Consultation pre-op Referring Provider: IMER MARTINEZ Exam/Review of Systems Vital Signs Vitals Vital Signs Date Time Temp Pulse Resp B/P Pulse Ox O2 Delivery O2 Flow Rate FiO2 10/08/17 07:36 98.6 87 16 118/69 96 10/05/17 13:20 Room Air Intake and Output 10/07/17 10/07/17 10/08/17 15:00 23:00 07:00 Intake Total 3320 ml 1110 ml Output Total 1980 ml 1800 ml Balance 1340 ml -690 ml Exam Review of Systems: CONSTITUTIONAL: No fevers, chills. PULMONARY: No sob CARDIOVASCULAR: No chest pain/palpitations GASTROINTESTINAL: No nausea/vomiting. GENITOURINARY: No hematuria/dysuria. MUSCULOSKELETAL: No myagias/arthalgias. PSYCHIATRIC: The patient denies depression. NEUROLOGIC: No weakness Constitutional: alert Psych: no complaints Head: normocephalic ENMT: mucosa pink and moist Neck: jvd (8 cm water), supple Respiratory: clear to auscultation Cardiovascular: regular rate and rhythm Gastrointestinal: non-tender, soft Musculoskeletal: muscle tone (normal) Extremities: other (leg covered by dressing) Neurological: other (No focal deficits) Results Result Diagram: 10/08/17 0506 10/08/17 0506 Results 24 hrs Laboratory Tests Test 10/08/17 05:06 10/08/17 05:38 White Blood Count 10.0 Red Blood Count 3.13 L Hemoglobin 8.7 L Hematocrit 27.1 L Mean Corpuscular Volume 86.6 Mean Corpuscular Hemoglobin 27.8 L Mean Corpuscular Hemoglobin Concent 32.1 Red Cell Distribution Width 16.9 H Platelet Count 510 H Mean Platelet Volume 8.6 Neutrophils % 59.8 Lymphocytes % 27.0 Monocytes % 9.6 Eosinophils % 2.2 Basophils % 0.5 Nucleated Red Blood Cells % 0.0 Neutrophils # 6.0 Lymphocytes # 2.7 Monocytes # 1.0 H Eosinophils # 0.2 Basophils # 0.1 Nucleated Red Blood Cells # 0.0 Prothrombin Time 14.7 Prothrombin Time Ratio 1.1 INR International Normalized Ratio 1.13 Activated Partial Thromboplast Time 47.9 H Sodium Level 132 L Potassium Level 4.0 Chloride Level 97 Carbon Dioxide Level 28 Anion Gap 11 Blood Urea Nitrogen 18 Creatinine 0.70 Glucose Level 130 Calcium Level 8.3 L Lab Scanned Report BLOOD TRANSFUSION Medications Medications Current Medications Ondansetron HCl (Zofran Inj) 4 mg Q6H PRN IV NAUSEA AND/OR VOMITING; Start at 20:00 Miscellaneous Information (Pending Santyl Order For Wound Care) This patient martin... PRN PRN XX WOUND CARE; Start 09/29/17 at 16:30 Collagenase (Santyl) 1 applic DAILY TOP Last administered on 10/08/17 09:00; Admin Dose 1 APPLIC; Start 09/30/17 at 09:00 Collagenase (Santyl) 1 applic PRN PRN TOP WOUND CARE; Start 09/29/17 at 17:00 Zinc Sulfate (Zinc Sulfate) 220 mg DAILY PO Last administered on 10/08/17 09: 06; Admin Dose 220 MG; Start 10/01/17 at 09:00 Methadone HCl (Methadone) 40 mg DAILY PO Last administered on 10/08/17 09:07; Admin Dose 40 MG; Start 10/01/17 at 09:00 Famotidine 20 mg 20 mg DAILY PO Last administered on 10/08/17 09:06; Admin Dose 20 MG; Start 10/02/17 at 09:00 Ciprofloxacin/ Dextrose (Cipro Ivpb) 200 ml @ 200 mls/hr Q12 IVPB Last administered on 10/08/17 09:02; Admin Dose 200 MLS/HR; Start 10/01/17 at 21:00 IV Flush (NS 10 ml) 10 ml PRN PRN IV IV PROTOCOL; Start 10/02/17 at 17:30 Ascorbic Acid (Vitamin C) 500 mg BID PO Last administered on 10/08/17 09:06; Admin Dose 500 MG; Start 10/04/17 at 21:00 Multivitamins Therapeutic (Theragran) 1 tab DAILY PO Last administered on 09:05; Admin Dose 1 TAB; Start 10/05/17 at 09:00 Metoprolol Tartrate (Lopressor) 12.5 mg BID PO Last administered on 10/07/17 09:01; Admin Dose 12.5 MG; Start 10/05/17 at 21:00 Acetaminophen 650 mg 650 mg Q6H PRN PO PAIN AND OR ELEVATED TEMP Last administered on 10/06/17 22:02; Admin Dose 650 MG; Start 10/06/17 at 20:30 Vancomycin HCl/ Dextrose/Water (Vancocin/D5W) 150 ml @ 75 mls/hr Q12H IVPB Last administered on 10/08/17 12:21; Admin Dose 75 MLS/HR; Start 10/07/17 at 22 :00 Ferrous Gluconate (Fergon) 325 mg BID PO Last administered on 10/08/17 09:05; Admin Dose 325 MG; Start 10/07/17 at 21:00 Cholecalciferol (Vitamin D) 2,000 unit DAILY PO Last administered on 10/08/17 09:06; Admin Dose 2,000 UNIT; Start 10/07/17 at 12:30 Enoxaparin Sodium (Lovenox) 50 mg Q12 SC Last administered on 10/08/17 09:11; Admin Dose 50 MG; Start 10/07/17 at 21:00 Miscellaneous Information (*Rx Drug Level Order Reminder*) VANCO TROUGH @ 0, 900 ON ... ONCE ONCE XX ; Start 10/09/17 at 09:00; Stop 10/09/17 at 09:01 CAYDEN ROSE Oct 08, 2017 13:38
[2017-10-08 14:31] VITALS: BP 145/55; RESP 16
[2017-10-08 19:37] VITALS: BP 103/66; RESP 16
--- NOTE | 2017-10-08 19:58 | CONS ---
Date/Time of Note Date/Time of Note DATE: 10/08/17 TIME: 19:57 Assessment/Plan Assessment/Plan Chief Complaint/Hosp Course SUBJECTIVE: No events overnight. The patient is awake, looks comfortable, no fevers overnight. MICROBIOLOGY: Right leg culture growing Strep pyogenes Corynebacterium species and Pseudomonas aeruginosa. Left buttock wound culture growing Strep pyogenes. Blood culture had been negative. ANTIMICROBIALS: The patient is on: 1. IV vancomycin. 2. Ciprofloxacin. PHYSICAL EXAMINATION: GENERAL: This is a fragile, well-developed, elderly woman who is awake, in no distress. HEENT: Head atraumatic, normocephalic. Sclerae anicteric. Buccal mucosa dry. NECK: Supple. CHEST: Rise symmetrical. Breath sounds diminished to bases. HEART: S1, S2. ABDOMEN: Soft, bowel tones present. EXTREMITIES: Without cyanosis. Bilateral lower extremities: Chronic wounds are more on the right. Left leg with an area of fluctuance below knee. ASSESSMENT: 1. Systemic inflammatory response syndrome with resolving leukocytosis, status post sepsis with fevers, tachycardia and encephalopathy. 2. Multiple infected wounds, questionable left leg abscess. 3. Chronic obstructive pulmonary disease. 4. Cachexia. 5. History of IV drug abuse. PLAN: The patient remains stable, continue abx, f/u podiatry and vascular rec- s, pending SNF [facility] staff Problems: Consultation Date/Type/Reason Admit Date/Time Sep 28, 2017 at 18:48 Type of Consultation: id Referring Provider: IMER MARTINEZ Exam/Review of Systems Vital Signs Vitals Vital Signs Date Time Temp Pulse Resp B/P Pulse Ox O2 Delivery O2 Flow Rate FiO2 10/08/17 19:37 98.8 91 16 103/66 95 10/05/17 13:20 Room Air Intake and Output 10/07/17 10/07/17 10/08/17 15:00 23:00 07:00 Intake Total 3320 ml 1110 ml Output Total 1980 ml 1800 ml Balance 1340 ml -690 ml Results Result Diagram: 10/08/17 0506 10/08/17 0506 Results 24 hrs Laboratory Tests Test 10/08/17 05:06 10/08/17 05:38 White Blood Count 10.0 Red Blood Count 3.13 L Hemoglobin 8.7 L Hematocrit 27.1 L Mean Corpuscular Volume 86.6 Mean Corpuscular Hemoglobin 27.8 L Mean Corpuscular Hemoglobin Concent 32.1 Red Cell Distribution Width 16.9 H Platelet Count 510 H Mean Platelet Volume 8.6 Neutrophils % 59.8 Lymphocytes % 27.0 Monocytes % 9.6 Eosinophils % 2.2 Basophils % 0.5 Nucleated Red Blood Cells % 0.0 Neutrophils # 6.0 Lymphocytes # 2.7 Monocytes # 1.0 H Eosinophils # 0.2 Basophils # 0.1 Nucleated Red Blood Cells # 0.0 Prothrombin Time 14.7 Prothrombin Time Ratio 1.1 INR International Normalized Ratio 1.13 Activated Partial Thromboplast Time 47.9 H Sodium Level 132 L Potassium Level 4.0 Chloride Level 97 Carbon Dioxide Level 28 Anion Gap 11 Blood Urea Nitrogen 18 Creatinine 0.70 Glucose Level 130 Calcium Level 8.3 L Lab Scanned Report BLOOD TRANSFUSION Medications Medications Current Medications Ondansetron HCl (Zofran Inj) 4 mg Q6H PRN IV NAUSEA AND/OR VOMITING; Start at 20:00 Miscellaneous Information (Pending Santyl Order For Wound Care) This patient martin... PRN PRN XX WOUND CARE; Start 09/29/17 at 16:30 Collagenase (Santyl) 1 applic DAILY TOP Last administered on 10/08/17 09:00; Admin Dose 1 APPLIC; Start 09/30/17 at 09:00 Collagenase (Santyl) 1 applic PRN PRN TOP WOUND CARE; Start 09/29/17 at 17:00 Zinc Sulfate (Zinc Sulfate) 220 mg DAILY PO Last administered on 10/08/17 09: 06; Admin Dose 220 MG; Start 10/01/17 at 09:00 Methadone HCl (Methadone) 40 mg DAILY PO Last administered on 10/08/17 09:07; Admin Dose 40 MG; Start 10/01/17 at 09:00 Famotidine 20 mg 20 mg DAILY PO Last administered on 10/08/17 09:06; Admin Dose 20 MG; Start 10/02/17 at 09:00 Ciprofloxacin/ Dextrose (Cipro Ivpb) 200 ml @ 200 mls/hr Q12 IVPB Last administered on 10/08/17 09:02; Admin Dose 200 MLS/HR; Start 10/01/17 at 21:00 IV Flush (NS 10 ml) 10 ml PRN PRN IV IV PROTOCOL; Start 10/02/17 at 17:30 Ascorbic Acid (Vitamin C) 500 mg BID PO Last administered on 10/08/17 09:06; Admin Dose 500 MG; Start 10/04/17 at 21:00 Multivitamins Therapeutic (Theragran) 1 tab DAILY PO Last administered on 09:05; Admin Dose 1 TAB; Start 10/05/17 at 09:00 Metoprolol Tartrate (Lopressor) 12.5 mg BID PO Last administered on 10/07/17 09:01; Admin Dose 12.5 MG; Start 10/05/17 at 21:00 Acetaminophen 650 mg 650 mg Q6H PRN PO PAIN AND OR ELEVATED TEMP Last administered on 10/06/17 22:02; Admin Dose 650 MG; Start 10/06/17 at 20:30 Vancomycin HCl/ Dextrose/Water (Vancocin/D5W) 150 ml @ 75 mls/hr Q12H IVPB Last administered on 10/08/17 12:21; Admin Dose 75 MLS/HR; Start 10/07/17 at 22 :00 Ferrous Gluconate (Fergon) 325 mg BID PO Last administered on 10/08/17 09:05; Admin Dose 325 MG; Start 10/07/17 at 21:00 Cholecalciferol (Vitamin D) 2,000 unit DAILY PO Last administered on 10/08/17 09:06; Admin Dose 2,000 UNIT; Start 10/07/17 at 12:30 Enoxaparin Sodium (Lovenox) 50 mg Q12 SC Last administered on 10/08/17 09:11; Admin Dose 50 MG; Start 10/07/17 at 21:00 Miscellaneous Information (*Rx Drug Level Order Reminder*) VANCO TROUGH @ 0, 900 ON ... ONCE ONCE XX ; Start 10/09/17 at 09:00; Stop 10/09/17 at 09:01 TELMA DUBON NP Oct 08, 2017 19:58
[2017-10-08] MEDS: ACETAMINOPHEN 325 MG TAB PO PRN (21:18)
[2017-10-09] VITALS (17 sets, daily range): BP systolic 90–109; BP diastolic 49–69; PULSE 60–76; RESP 16–22
[2017-10-09] MEDS ORDERED: ALTEPLASE (CATHFLO) 2 MG INJ CATHETER ONE (01:30)
[2017-10-09] MEDS: COLLAGENASE 30 GM TUBE TOP SCH (09:00)
[2017-10-09] MEDS: CIPROFLOXACIN 400MG/D5W 200 ML IVPB SCH ×4 (09:00→21:11)
[2017-10-09] MEDS: ENOXAPARIN 60 MG/0.6 ML SYG SC SCH ×2 (09:00→21:20)
[2017-10-09] MEDS: FAMOTIDINE 20 MG TAB PO SCH (09:08)
[2017-10-09] MEDS: ASCORBIC ACID 500 MG TAB PO SCH ×2 (09:08→21:11)
[2017-10-09] MEDS: MULTIVITAMINS THERAPEUTIC TAB PO SCH (09:08)
[2017-10-09] MEDS: ZINC SULFATE 220 MG CAP PO SCH (09:08)
[2017-10-09] MEDS: METOPROLOL 25 MG TAB PO SCH ×2 (09:08→21:00)
[2017-10-09] MEDS: FERROUS GLUCONATE (EC) 325 MG TAB PO SCH ×2 (09:09→21:00)
[2017-10-09] MEDS: CHOLECALCIFEROL 2,000 UNIT CAP PO SCH (09:09)
[2017-10-09] MEDS: METHADONE 10 MG TAB PO SCH (09:13)
[2017-10-09] MEDS: ACETAMINOPHEN 325 MG TAB PO PRN ×2 (09:16→21:11)
[2017-10-09] MEDS: VANCOMYCIN 750 MG in DEXTROSE 5% 150 ML IVPB SCH ×2 (10:00→16:17)
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
--- NOTE | 2017-10-09 10:31 | CONS ---
Date/Time of Note Date/Time of Note DATE: 10/09/17 TIME: 10:30 Assessment/Plan Assessment/Plan Chief Complaint/Hosp Course IMPRESSION: 1. Preoperative evaluation prior to placement of a peritoneal dialysis catheter.-negative trop x 3/EF 45-50% by echo/no sig valve lesions 2. Hypertension, under reasonable control. 3. Left lower extremity deep venous thrombosis. 4. Anemia. 5. Prior failed chest wall catheters. 6. cardiomyopathy-EF 45%-? due to substance abuse with amphetamines Recc: -continue anticoagulation with lovenox -Continue local wound care -Continue abx's -Continue low dose BB as tolerated -Pnding LE debridement. Problems: Consultation Date/Type/Reason Admit Date/Time Sep 28, 2017 at 18:48 Initial Consult Date 10/04/2017 Type of Consultation: cardiology Reason for Consultation Pre-op Referring Provider: IMER MARTINEZ Exam/Review of Systems Vital Signs Vitals Vital Signs Date Time Temp Pulse Resp B/P Pulse Ox O2 Delivery O2 Flow Rate FiO2 10/09/17 07:25 98.2 76 16 108/65 97 10/05/17 13:20 Room Air Intake and Output 10/08/17 10/08/17 10/09/17 14:59 22:59 06:59 Intake Total 350 ml 1460 ml 150 ml Output Total 1280 ml 800 ml Balance 350 ml 180 ml -650 ml Exam Review of Systems: CONSTITUTIONAL: No fevers, chills. PULMONARY: No sob CARDIOVASCULAR: No chest pain/palpitations GASTROINTESTINAL: No nausea/vomiting. GENITOURINARY: No hematuria/dysuria. MUSCULOSKELETAL: No myagias/arthalgias. PSYCHIATRIC: The patient denies depression. NEUROLOGIC: No weakness Constitutional: alert, oriented Psych: no complaints Head: normocephalic ENMT: mucosa pink and moist Neck: jvd (9 cm water), supple Respiratory: diminished breath sounds (at bases/B) Cardiovascular: regular rate and rhythm Gastrointestinal: non-tender, soft Musculoskeletal: muscle tone (normal) Extremities: edema (none) Neurological: other (No focal deficits) Results Result Diagram: 10/08/17 0506 10/08/17 0506 Results 24 hrs Laboratory Tests Test 10/09/17 08:58 Vancomycin Level Trough 12.5 Medications Medications Current Medications Ondansetron HCl (Zofran Inj) 4 mg Q6H PRN IV NAUSEA AND/OR VOMITING; Start at 20:00 Miscellaneous Information (Pending Santyl Order For Wound Care) This patient martin... PRN PRN XX WOUND CARE; Start 09/29/17 at 16:30 Collagenase (Santyl) 1 applic DAILY TOP Last administered on 10/08/17 09:00; Admin Dose 1 APPLIC; Start 09/30/17 at 09:00 Collagenase (Santyl) 1 applic PRN PRN TOP WOUND CARE; Start 09/29/17 at 17:00 Zinc Sulfate (Zinc Sulfate) 220 mg DAILY PO Last administered on 10/09/17 09: 08; Admin Dose 220 MG; Start 10/01/17 at 09:00 Methadone HCl (Methadone) 40 mg DAILY PO Last administered on 10/09/17 09:13; Admin Dose 40 MG; Start 10/01/17 at 09:00 Famotidine 20 mg 20 mg DAILY PO Last administered on 10/09/17 09:08; Admin Dose 20 MG; Start 10/02/17 at 09:00 Ciprofloxacin/ Dextrose (Cipro Ivpb) 200 ml @ 200 mls/hr Q12 IVPB Last administered on 10/08/17 21:10; Admin Dose 200 MLS/HR; Start 10/01/17 at 21:00 IV Flush (NS 10 ml) 10 ml PRN PRN IV IV PROTOCOL; Start 10/02/17 at 17:30 Ascorbic Acid (Vitamin C) 500 mg BID PO Last administered on 10/09/17 09:08; Admin Dose 500 MG; Start 10/04/17 at 21:00 Multivitamins Therapeutic (Theragran) 1 tab DAILY PO Last administered on 09:08; Admin Dose 1 TAB; Start 10/05/17 at 09:00 Metoprolol Tartrate (Lopressor) 12.5 mg BID PO Last administered on 10/09/17 09:08; Admin Dose 12.5 MG; Start 10/05/17 at 21:00 Acetaminophen 650 mg 650 mg Q6H PRN PO PAIN AND OR ELEVATED TEMP Last administered on 10/09/17 09:16; Admin Dose 650 MG; Start 10/06/17 at 20:30 Vancomycin HCl/ Dextrose/Water (Vancocin/D5W) 150 ml @ 75 mls/hr Q12H IVPB Last administered on 10/08/17 23:15; Admin Dose 75 MLS/HR; Start 10/07/17 at 22 :00 Ferrous Gluconate (Fergon) 325 mg BID PO Last administered on 10/09/17 09:09; Admin Dose 325 MG; Start 10/07/17 at 21:00 Cholecalciferol (Vitamin D) 2,000 unit DAILY PO Last administered on 10/09/17 09:09; Admin Dose 2,000 UNIT; Start 10/07/17 at 12:30 Enoxaparin Sodium (Lovenox) 50 mg Q12 SC Last administered on 10/08/17 21:15; Admin Dose 50 MG; Start 10/07/17 at 21:00 CAYDEN ROSE Oct 09, 2017 10:31
--- NOTE | 2017-10-09 11:11 | HPN ---
Date/Time of Note Date/Time of Note DATE: 10/09/17 TIME: 11:11 Interval H&P Admission Note Pt. seen H&P reviewed: No system changes OSEAS MARTINEZ MD Oct 09, 2017 11:11
[2017-10-09] MEDS ORDERED: FENTAnyl 50 MCG/ML VIAL ONE (11:34)
[2017-10-09] MEDS ORDERED: LIDOCAINE 1% (MPF) 30 ML INJ ONE (11:40)
[2017-10-09] MEDS ORDERED: PROPOFOL 20 ML ONE (11:48)
[2017-10-09] MEDS ORDERED: LIDOCAINE 2% (SDV) 5 ML INJ ONE (11:48)
--- NOTE | 2017-10-09 12:34 | SIPON ---
Date/Time of Note Date/Time of Note DATE: 10/09/17 TIME: 12:33 Operative Report Preoperative Diagnosis NONHEALING RIGHT LOWER EXTREMITY NECROTIC WOUND Postoperative Diagnosis SAME Operation/Procedure Performed RLE DEBRIDEMENT AND ACELL GRAFT APPLICATION Surgeon see signature line business services assistant NONE Anesthesia: moderate sedation Estimated blood loss: minimal Transfusion Required none Specimen NONE Grafts/Implants none Complications none OSEAS MARTINEZ MD Oct 09, 2017 12:34
--- NOTE | 2017-10-09 14:18 | CONS ---
Date/Time of Note Date/Time of Note DATE: 10/09/17 TIME: 14:17 Assessment/Plan Assessment/Plan Chief Complaint/Hosp Course SUBJECTIVE: No events overnight. The patient is awake, looks comfortable, no fevers overnight. MICROBIOLOGY: Right leg culture growing Strep pyogenes Corynebacterium species and Pseudomonas aeruginosa. Left buttock wound culture growing Strep pyogenes. Blood culture had been negative. ANTIMICROBIALS: The patient is on: 1. IV vancomycin. 2. Ciprofloxacin. PHYSICAL EXAMINATION: GENERAL: This is a fragile, well-developed, elderly woman who is awake, in no distress. HEENT: Head atraumatic, normocephalic. Sclerae anicteric. Buccal mucosa dry. NECK: Supple. CHEST: Rise symmetrical. Breath sounds diminished to bases. HEART: S1, S2. ABDOMEN: Soft, bowel tones present. EXTREMITIES: Without cyanosis. Bilateral lower extremities: Chronic wounds are more on the right. Left leg with an area of fluctuance below knee. ASSESSMENT: 1. Systemic inflammatory response syndrome with resolving leukocytosis, status post sepsis with fevers, tachycardia and encephalopathy. 2. Multiple infected wounds, questionable left leg abscess. 3. Chronic obstructive pulmonary disease. 4. Cachexia. 5. History of IV drug abuse. PLAN: The patient remains stable, continue abx, f/u podiatry and vascular rec- s, pending debridement today [facility] staff Problems: Consultation Date/Type/Reason Admit Date/Time Sep 28, 2017 at 18:48 Type of Consultation: id Referring Provider: IMER MARTINEZ Exam/Review of Systems Vital Signs Vitals Vital Signs Date Time Temp Pulse Resp B/P Pulse Ox O2 Delivery O2 Flow Rate FiO2 10/09/17 13:26 97.5 72 16 105/62 98 10/09/17 13:15 Room Air Intake and Output 10/08/17 10/08/17 10/09/17 15:00 23:00 07:00 Intake Total 350 ml 1460 ml 150 ml Output Total 1280 ml 800 ml Balance 350 ml 180 ml -650 ml Results Result Diagram: 10/08/17 0506 10/08/17 0506 Results 24 hrs Laboratory Tests Test 10/09/17 08:58 Vancomycin Level Trough 12.5 Medications Medications Current Medications Ondansetron HCl (Zofran Inj) 4 mg Q6H PRN IV NAUSEA AND/OR VOMITING; Start at 20:00 Miscellaneous Information (Pending Santyl Order For Wound Care) This patient martin... PRN PRN XX WOUND CARE; Start 09/29/17 at 16:30 Collagenase (Santyl) 1 applic DAILY TOP Last administered on 10/08/17 09:00; Admin Dose 1 APPLIC; Start 09/30/17 at 09:00 Collagenase (Santyl) 1 applic PRN PRN TOP WOUND CARE; Start 09/29/17 at 17:00 Zinc Sulfate (Zinc Sulfate) 220 mg DAILY PO Last administered on 10/09/17 09: 08; Admin Dose 220 MG; Start 10/01/17 at 09:00 Methadone HCl (Methadone) 40 mg DAILY PO Last administered on 10/09/17 09:13; Admin Dose 40 MG; Start 10/01/17 at 09:00 Famotidine 20 mg 20 mg DAILY PO Last administered on 10/09/17 09:08; Admin Dose 20 MG; Start 10/02/17 at 09:00 Ciprofloxacin/ Dextrose (Cipro Ivpb) 200 ml @ 200 mls/hr Q12 IVPB Last administered on 10/08/17 21:10; Admin Dose 200 MLS/HR; Start 10/01/17 at 21:00 IV Flush (NS 10 ml) 10 ml PRN PRN IV IV PROTOCOL; Start 10/02/17 at 17:30 Ascorbic Acid (Vitamin C) 500 mg BID PO Last administered on 10/09/17 09:08; Admin Dose 500 MG; Start 10/04/17 at 21:00 Multivitamins Therapeutic (Theragran) 1 tab DAILY PO Last administered on 09:08; Admin Dose 1 TAB; Start 10/05/17 at 09:00 Metoprolol Tartrate (Lopressor) 12.5 mg BID PO Last administered on 10/09/17 09:08; Admin Dose 12.5 MG; Start 10/05/17 at 21:00 Acetaminophen 650 mg 650 mg Q6H PRN PO PAIN AND OR ELEVATED TEMP Last administered on 10/09/17 09:16; Admin Dose 650 MG; Start 10/06/17 at 20:30 Vancomycin HCl/ Dextrose/Water (Vancocin/D5W) 150 ml @ 75 mls/hr Q12H IVPB Last administered on 10/08/17 23:15; Admin Dose 75 MLS/HR; Start 10/07/17 at 22 :00 Ferrous Gluconate (Fergon) 325 mg BID PO Last administered on 10/09/17 09:09; Admin Dose 325 MG; Start 10/07/17 at 21:00 Cholecalciferol (Vitamin D) 2,000 unit DAILY PO Last administered on 10/09/17 09:09; Admin Dose 2,000 UNIT; Start 10/07/17 at 12:30 Enoxaparin Sodium (Lovenox) 50 mg Q12 SC Last administered on 10/08/17 21:15; Admin Dose 50 MG; Start 10/07/17 at 21:00 TELMA DUBON NP Oct 09, 2017 14:18
--- NOTE | 2017-10-09 18:25 | OPR ---
DATE OF OPERATION: 10/09/2017 SURGEON: Darrian Mcdonnell MD PREOPERATIVE DIAGNOSIS: Right lower extremity nonhealing chronic ulcer. POSTOPERATIVE DIAGNOSIS: Right lower extremity nonhealing chronic ulcer. ANESTHESIA: Local with moderate sedation. ESTIMATED BLOOD LOSS: Minimal. COMPLICATIONS: None. HEPARIN: None. SPECIMEN: None. INDICATIONS: This is a 62-year-old female who presented to [facility] secondary t o right lower extremity swelling, pain and leukocytosis. Upon evaluation, it was identified the pat ient having multiple ulcers throughout the right lower extremity but significant large chronic ulcer over that had developed over the past month on her anterolateral aspect of her steven that had become necrotic with fibrinous tissue and surrounding erythema. The patient had been treated with antibio tics and erythema has improved; however, she still has a significant amount of necrotic tissue on th e wound in which she requires debridement. Therefore, the patient was offered risks, benefits and a lternatives of debridement, possible wound VAC therapy, possible application of xenograft. The kaley ent has agreed to proceed. Risks included, but not limited to, bleeding, myocardial infarction, mino th, stroke, infection, multiple serial debridements, limb loss, nerve injury, and the patient has ag margarita to proceed. PROCEDURE: Right lower extremity sharp excisional debridement of the skin and subcutaneous tissue i nvolving the anterolateral aspect of the lower leg. The area is about 20 cm2. DESCRIPTION OF PROCEDURE: The patient was brought into the operating room and placed in the supine position on the table. The right lower extremity was then prepped and draped in the usual standard sterile fashion. Anesthesia had the appropriate lines and moderate sedation was provided. The kaley ent tolerated it well. Timeout and the appropriate site was marked and confirmed. Preop antibiotic s were given to the patient. Using Metzenbaum scissors and a #15 scalpel, sharp excisional debridem ent of all of the necrotic skin and subcutaneous tissue was performed. There was a significant amou nt of necrotic tissue layer that was removed. Upon further evaluation of the wound, it seemed that there was already undermining of necrotic tissue to the surrounding edges of the wound. The area me asured about 20 cm2. Once all of the necrotic tissue was removed with sharp debridement, we went ah ead and irrigated the wound. Using 1 gram of ACell MicroPowder, xenograft was applied secondary to having a significant defect of the wound and to help further closure of the defect. Upon applicatio n of the powder, we went ahead and placed a 2-layer xenograft sheet to cover the area of the defect to help alleviate the closure. Upon the completion of that, we went ahead and applied Adaptic dress ing with Telfa and 4 x 4 in a wet-to-dry fashion. Kerlix and bias wrapping was applied. The patien t tolerated this aspect of the procedure well and was taken to the postanesthesia care unit in stabl e condition. All instrument, sponge and needle counts were correct x2. Dictated By: DARRIAN WOODWARD/TENNILLE Conf#: [id number] DID#: [id number] CC: GRISELDA BARON MD;*End*
[2017-10-10 02:00] VITALS: BP 105/65; RESP 14
[2017-10-10] MEDS: VANCOMYCIN 750 MG in DEXTROSE 5% 150 ML IVPB SCH ×2 (04:39→17:00)
[2017-10-10 05:59] LABS: BASOPHIL # 0.1 10^3/ul (0.0-0.1); BASOPHILS % 0.8 % (0.0-2.0); EOSINOPHILS # 0.2 10^3/ul (0.0-0.5); HEMATOCRIT 27.1 % (37.0-47.0); HEMOGLOBIN 8.7 g/dl (12.0-16.0); LYMPHOCYTES # 2.7 10^3/ul (0.8-2.9); LYMPHOCYTES % 30.9 % (15.0-51.0); MEAN CORPUSCULAR HEMOGLOBIN 27.9 pg (29.0-33.0); MEAN CORPUSCULAR HGB CONC 32.1 g/dl (32.0-37.0); MEAN CORPUSCULAR VOLUME 86.9 fl (82.0-101.0); MEAN PLATELET VOLUME 8.6 fl (7.4-10.4); NEUTROPHIL # 4.8 10^3/ul (1.6-7.5); NEUTROPHILS % 54.4 % (39.0-77.0); PLATELET COUNT 473 10^3/UL (140-415); RED BLOOD COUNT 3.12 10^6/ul (4.20-5.40); RED CELL DISTRIBUTION WIDTH 17.3 % (11.5-14.5); WHITE BLOOD COUNT 8.8 10^3/ul (4.8-10.8)
[2017-10-10 06:29] LABS: CREATININE 0.85 mg/dl (0.44-1.00); MAGNESIUM 1.6 mg/dl (1.7-2.5); POTASSIUM 4.1 mmol/L (3.5-5.1)
[2017-10-10 07:45] VITALS: BP 127/73; RESP 16
[2017-10-10] MEDS: CIPROFLOXACIN 400MG/D5W 200 ML IVPB SCH ×2 (08:40→21:40)
[2017-10-10] MEDS: FERROUS GLUCONATE (EC) 325 MG TAB PO SCH ×2 (08:44→21:40)
[2017-10-10] MEDS: METHADONE 10 MG TAB PO SCH (08:44)
[2017-10-10] MEDS: ZINC SULFATE 220 MG CAP PO SCH (08:44)
[2017-10-10] MEDS: ASCORBIC ACID 500 MG TAB PO SCH ×2 (08:44→21:40)
[2017-10-10] MEDS: MULTIVITAMINS THERAPEUTIC TAB PO SCH (08:44)
[2017-10-10] MEDS: FAMOTIDINE 20 MG TAB PO SCH (08:44)
[2017-10-10] MEDS: METOPROLOL 25 MG TAB PO SCH ×2 (08:45→21:00)
[2017-10-10] MEDS: ENOXAPARIN 60 MG/0.6 ML SYG SC SCH (08:58)
--- NOTE | 2017-10-10 10:59 | CONS ---
Date/Time of Note Date/Time of Note DATE: 10/10/17 TIME: 10:58 Assessment/Plan Assessment/Plan Additional Assessment/Plan 1. Preoperative evaluation prior to placement of a peritoneal dialysis catheter.-negative trop x 3/EF 45-50% by echo/no sig valve lesions - stable now 2. Hypertension, under reasonable control- well treated now 3. Left lower extremity deep venous thrombosis- rxz with primary team 4. Anemia - no active bleeding noted 5. Prior failed chest wall catheters. 6. cardiomyopathy-EF 45%-? due to substance abuse with amphetamines Consultation Date/Type/Reason Admit Date/Time Sep 28, 2017 at 18:48 Initial Consult Date 10/03/17 Type of Consultation: id Referring Provider: IMER MARTINEZ 24 HR Interval Summary Free Text/Dictation NO acute events - BP stable - no CP now ROS: No fever, no chills, no nausea, no vomiting, no diarrhea/constipation No recent weight changes No chest pain, no PND, no orthopnea No dizziness, blurred vision No thirst, no heat or cold intolerance Exam/Review of Systems Vital Signs Vitals Vital Signs Date Time Temp Pulse Resp B/P Pulse Ox O2 Delivery O2 Flow Rate FiO2 10/10/17 07:45 98.4 80 16 127/73 97 10/09/17 13:15 Room Air Intake and Output 10/09/17 10/09/17 10/10/17 15:00 23:00 07:00 Intake Total 400 ml 1350 ml 950 ml Output Total 0 ml 600 ml 1200 ml Balance 400 ml 750 ml -250 ml Exam General: WN/WD/NAD, AOx 3 HEENT: Unicetric/atraumatic/EOMI (follows commands) NECK: JVD elevated, no thyromegaly Lymph: no lymphadenopathy HEART: regular with no S3, II/ systolic murmur at apex - PMI L LUNGS: Coarse sounds ABD: soft, NT, ND, +BS : Intact Neuro: non focal SKIN: chronic changes EXT: trace edema Results Result Diagram: 10/10/1752210/10/1723 Results 24 hrs Laboratory Tests Test 10/10/17 05:23 White Blood Count 8.8 Red Blood Count 3.12 L Hemoglobin 8.7 L Hematocrit 27.1 L Mean Corpuscular Volume 86.9 Mean Corpuscular Hemoglobin 27.9 L Mean Corpuscular Hemoglobin Concent 32.1 Red Cell Distribution Width 17.3 H Platelet Count 473 H Mean Platelet Volume 8.6 Neutrophils % 54.4 Lymphocytes % 30.9 Monocytes % 11.0 Eosinophils % 2.0 Basophils % 0.8 Nucleated Red Blood Cells % 0.0 Neutrophils # 4.8 Lymphocytes # 2.7 Monocytes # 1.0 H Eosinophils # 0.2 Basophils # 0.1 Nucleated Red Blood Cells # 0.0 Sodium Level 136 Potassium Level 4.1 Chloride Level 97 Carbon Dioxide Level 35 H Anion Gap 8 Blood Urea Nitrogen 21 H Creatinine 0.85 Glucose Level 97 Calcium Level 9.0 Magnesium Level 1.6 L Medications Medications Current Medications Ondansetron HCl (Zofran Inj) 4 mg Q6H PRN IV NAUSEA AND/OR VOMITING; Start at 20:00 Miscellaneous Information (Pending Santyl Order For Wound Care) This patient martin... PRN PRN XX WOUND CARE; Start 09/29/17 at 16:30 Collagenase (Santyl) 1 applic DAILY TOP Last administered on 10/08/17 09:00; Admin Dose 1 APPLIC; Start 09/30/17 at 09:00 Collagenase (Santyl) 1 applic PRN PRN TOP WOUND CARE; Start 09/29/17 at 17:00 Zinc Sulfate (Zinc Sulfate) 220 mg DAILY PO Last administered on 10/10/17 08: 44; Admin Dose 220 MG; Start 10/01/17 at 09:00 Methadone HCl (Methadone) 40 mg DAILY PO Last administered on 10/10/17 08:44; Admin Dose 40 MG; Start 10/01/17 at 09:00 Famotidine 20 mg 20 mg DAILY PO Last administered on 10/10/17 08:44; Admin Dose 20 MG; Start 10/02/17 at 09:00 Ciprofloxacin/ Dextrose (Cipro Ivpb) 200 ml @ 200 mls/hr Q12 IVPB Last administered on 10/10/17 08:40; Admin Dose 200 MLS/HR; Start 10/01/17 at 21:00 IV Flush (NS 10 ml) 10 ml PRN PRN IV IV PROTOCOL; Start 10/02/17 at 17:30 Ascorbic Acid (Vitamin C) 500 mg BID PO Last administered on 10/10/17 08:44; Admin Dose 500 MG; Start 10/04/17 at 21:00 Multivitamins Therapeutic (Theragran) 1 tab DAILY PO Last administered on 08:44; Admin Dose 1 TAB; Start 10/05/17 at 09:00 Metoprolol Tartrate (Lopressor) 12.5 mg BID PO Last administered on 10/10/17 08:45; Admin Dose 12.5 MG; Start 10/05/17 at 21:00 Acetaminophen (Tylenol Tab) 650 mg Q6H PRN PO PAIN AND OR ELEVATED TEMP Last administered on 10/09/17 21:11; Admin Dose 650 MG; Start 10/06/17 at 20:30 Ferrous Gluconate (Fergon) 325 mg BID PO Last administered on 10/10/17 08:44; Admin Dose 325 MG; Start 10/07/17 at 21:00 Cholecalciferol (Vitamin D) 2,000 unit DAILY PO Last administered on 10/09/17 09:09; Admin Dose 2,000 UNIT; Start 10/07/17 at 12:30 Enoxaparin Sodium 50 mg 50 mg Q12 SC Last administered on 10/10/17 08:58; Admin Dose 50 MG; Start 10/07/17 at 21:00 Vancomycin HCl/ Dextrose/Water (Vancocin/D5W) 150 ml @ 75 mls/hr Q12H IVPB Last administered on 10/10/17 04:39; Admin Dose 75 MLS/HR; Start 10/10/17 at 04 :00 LESLI JURADO MD Oct 10, 2017 10:59
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
[2017-10-10] MEDS: COLLAGENASE 30 GM TUBE TOP SCH (13:00)
--- NOTE | 2017-10-10 13:07 | CONS ---
Date/Time of Note Date/Time of Note DATE: 10/10/17 TIME: 13:06 Assessment/Plan Assessment/Plan Chief Complaint/Hosp Course SUBJECTIVE: No events overnight. The patient is awake, looks comfortable, no fevers overnight. MICROBIOLOGY: Right leg culture growing Strep pyogenes Corynebacterium species and Pseudomonas aeruginosa. Left buttock wound culture growing Strep pyogenes. Blood culture had been negative. ANTIMICROBIALS: The patient is on: 1. IV vancomycin. 2. Ciprofloxacin. PHYSICAL EXAMINATION: GENERAL: This is a fragile, well-developed, elderly woman who is awake, in no distress. HEENT: Head atraumatic, normocephalic. Sclerae anicteric. Buccal mucosa dry. NECK: Supple. CHEST: Rise symmetrical. Breath sounds diminished to bases. HEART: S1, S2. ABDOMEN: Soft, bowel tones present. EXTREMITIES: Without cyanosis. Bilateral lower extremities: Chronic wounds are more on the right. Left leg with an area of fluctuance below knee. ASSESSMENT: 1. Systemic inflammatory response syndrome with resolving leukocytosis, status post sepsis with fevers, tachycardia and encephalopathy. 2. Multiple infected wounds, questionable left leg abscess. 3. Chronic obstructive pulmonary disease. 4. Cachexia. 5. History of IV drug abuse. 6. RLE chronic wound s/p i&d 10/09/17 PLAN: The patient remains stable, continue abx, f/u podiatry and vascular rec- s [facility] staff Problems: Consultation Date/Type/Reason Admit Date/Time Sep 28, 2017 at 18:48 Type of Consultation: id Referring Provider: IMER MARTINEZ Exam/Review of Systems Vital Signs Vitals Vital Signs Date Time Temp Pulse Resp B/P Pulse Ox O2 Delivery O2 Flow Rate FiO2 10/10/17 07:45 98.4 80 16 127/73 97 10/09/17 13:15 Room Air Intake and Output 10/09/17 10/09/17 10/10/17 15:00 23:00 07:00 Intake Total 400 ml 1350 ml 950 ml Output Total 0 ml 600 ml 1200 ml Balance 400 ml 750 ml -250 ml Results Result Diagram: 10/10/17 0523 10/10/17 0523 Results 24 hrs Laboratory Tests Test 10/10/17 05:23 White Blood Count 8.8 Red Blood Count 3.12 L Hemoglobin 8.7 L Hematocrit 27.1 L Mean Corpuscular Volume 86.9 Mean Corpuscular Hemoglobin 27.9 L Mean Corpuscular Hemoglobin Concent 32.1 Red Cell Distribution Width 17.3 H Platelet Count 473 H Mean Platelet Volume 8.6 Neutrophils % 54.4 Lymphocytes % 30.9 Monocytes % 11.0 Eosinophils % 2.0 Basophils % 0.8 Nucleated Red Blood Cells % 0.0 Neutrophils # 4.8 Lymphocytes # 2.7 Monocytes # 1.0 H Eosinophils # 0.2 Basophils # 0.1 Nucleated Red Blood Cells # 0.0 Sodium Level 136 Potassium Level 4.1 Chloride Level 97 Carbon Dioxide Level 35 H Anion Gap 8 Blood Urea Nitrogen 21 H Creatinine 0.85 Glucose Level 97 Calcium Level 9.0 Magnesium Level 1.6 L Medications Medications Current Medications Ondansetron HCl (Zofran Inj) 4 mg Q6H PRN IV NAUSEA AND/OR VOMITING; Start at 20:00 Miscellaneous Information (Pending Santyl Order For Wound Care) This patient matrin... PRN PRN XX WOUND CARE; Start 09/29/17 at 16:30 Collagenase (Santyl) 1 applic DAILY TOP Last administered on 10/08/17 09:00; Admin Dose 1 APPLIC; Start 09/30/17 at 09:00 Collagenase (Santyl) 1 applic PRN PRN TOP WOUND CARE; Start 09/29/17 at 17:00 Zinc Sulfate (Zinc Sulfate) 220 mg DAILY PO Last administered on 10/10/17 08: 44; Admin Dose 220 MG; Start 10/01/17 at 09:00 Methadone HCl (Methadone) 40 mg DAILY PO Last administered on 10/10/17 08:44; Admin Dose 40 MG; Start 10/01/17 at 09:00 Famotidine 20 mg 20 mg DAILY PO Last administered on 10/10/17 08:44; Admin Dose 20 MG; Start 10/02/17 at 09:00 Ciprofloxacin/ Dextrose (Cipro Ivpb) 200 ml @ 200 mls/hr Q12 IVPB Last administered on 10/10/17 08:40; Admin Dose 200 MLS/HR; Start 10/01/17 at 21:00 IV Flush (NS 10 ml) 10 ml PRN PRN IV IV PROTOCOL; Start 10/02/17 at 17:30 Ascorbic Acid (Vitamin C) 500 mg BID PO Last administered on 10/10/17 08:44; Admin Dose 500 MG; Start 10/04/17 at 21:00 Multivitamins Therapeutic (Theragran) 1 tab DAILY PO Last administered on 08:44; Admin Dose 1 TAB; Start 10/05/17 at 09:00 Metoprolol Tartrate (Lopressor) 12.5 mg BID PO Last administered on 10/10/17 08:45; Admin Dose 12.5 MG; Start 10/05/17 at 21:00 Acetaminophen (Tylenol Tab) 650 mg Q6H PRN PO PAIN AND OR ELEVATED TEMP Last administered on 10/09/17 21:11; Admin Dose 650 MG; Start 10/06/17 at 20:30 Ferrous Gluconate (Fergon) 325 mg BID PO Last administered on 10/10/17 08:44; Admin Dose 325 MG; Start 10/07/17 at 21:00 Cholecalciferol 2000 unit 2,000 unit DAILY PO Last administered on 10/09/17 09 :09; Admin Dose 2,000 UNIT; Start 10/07/17 at 12:30 Vancomycin HCl/ Dextrose/Water (Vancocin/D5W) 150 ml @ 75 mls/hr Q12H IVPB Last administered on 10/10/17 04:39; Admin Dose 75 MLS/HR; Start 10/10/17 at 04 :00 Apixaban (Eliquis) 10 mg BID PO ; Start 10/10/17 at 21:00; Stop 10/17/17 at 20: 59 Apixaban (Eliquis) 5 mg BID PO ; Start 10/17/17 at 09:00 TELMA DUBON NP Oct 10, 2017 13:07
[2017-10-10 14:00] VITALS: BP 156/73; RESP 18
[2017-10-10 14:48] VITALS: BP 99/57; RESP 16
[2017-10-10] MEDS: CHOLECALCIFEROL 2,000 UNIT CAP PO SCH (16:00)
[2017-10-10 20:00] VITALS: BP 106/61; RESP 20
[2017-10-10 21:39] VITALS: BP 108/62; PULSE 92; RESP 16
[2017-10-10] MEDS: APIXABAN 5 MG TABLET PO SCH (21:41)
--- NOTE | 2017-10-10 23:07 | PN ---
Date/Time of Note Date/Time of Note DATE: 10/10/17 TIME: 23:04 Assessment/Plan Lines/Catheters IV Catheter Type (from [facility]): PICC Line Alarcon in Place (from [facility]): No Assessment/Plan Chief Complaint/Hosp Course -Bilateral lower extremity atherosclerosis with right lower extremity ulcer: It seems the patient has some component of atherosclerotic disease; however, the patient does have faint pedal pulses in which my suspicion would be low for having a nonhealing wound as a result of her atherosclerotic disease. Her noninvasive vascular studies did not demonstrate flow limiting infrainguinal stenosis. It seems the patient's noncompliance and not coming to the hospital and receiving medical care may be the main issue of her ulceration that has worsened over the past month. - S/P debridement and Acell application -Left IJ DVT:Recommend for the patient to be anticoagulated with any PO regimen she can tolerate, also her being compliant and coverage by her insurance may be an issue. Recommend wrapper caser evaluation -Will need patient to be cleared and followup at [facility] -Continue with antibiotics. -Discussed with the patient regarding smoking cessation and IV drug abuse cessation -Optimize vascular status (BP meds, diet, nutrition, exercise, sugar control, antiplatelets). -Thank you for allowing me to partake in the care of your patient. Please call with any questions. Problems: Subjective 24 Hr Interval Summary no new vascular issues overnight Exam/Review of Systems Vital Signs Vitals Vital Signs Date Time Temp Pulse Resp B/P Pulse Ox O2 Delivery O2 Flow Rate FiO2 10/10/17 21:39 92 16 108/62 10/10/17 20:00 98.6 96 10/09/17 13:15 Room Air Intake and Output 10/09/17 10/09/17 10/10/17 14:59 22:59 06:59 Intake Total 400 ml 1150 ml 1150 ml Output Total 0 ml 600 ml 1200 ml Balance 400 ml 550 ml -50 ml Exam Free Text/Dictation GENERAL: Alert and oriented x3. PULMONARY: Clear to auscultation bilaterally. CARDIOVASCULAR: S1, S2 present. ABDOMEN: Soft, nontender, nondistended. Bowel sounds positive. RIGHT LOWER EXTREMITY: Palpable femoral pulse, faint pedal pulse. Motor, sensory intact. Cap refill 3 seconds. lower leg dressing intact and dry LEFT LOWER EXTREMITY: Palpable femoral pulse, faint pedal pulse. Motor, sensory intact. Cap refill 3 seconds. Results Result Diagram: 10/10/17 0523 10/10/17 0523 OSEAS MARTINEZ MD Oct 10, 2017 23:07
[2017-10-11 02:00] VITALS: BP 105/62; RESP 20
[2017-10-11] MEDS: VANCOMYCIN 750 MG in DEXTROSE 5% 150 ML IVPB SCH ×2 (04:14→16:24)
[2017-10-11 06:23] LABS: BASOPHIL # 0.1 10^3/ul (0.0-0.1); BASOPHILS % 0.8 % (0.0-2.0); EOSINOPHILS # 0.2 10^3/ul (0.0-0.5); EOSINOPHILS % 2.3 % (0.0-7.0); HEMATOCRIT 28.4 % (37.0-47.0); HEMOGLOBIN 9.1 g/dl (12.0-16.0); LYMPHOCYTES % 34.5 % (15.0-51.0); MEAN CORPUSCULAR VOLUME 87.4 fl (82.0-101.0); MEAN PLATELET VOLUME 8.5 fl (7.4-10.4); MONOCYTE # 0.9 10^3/ul (0.3-0.9); MONOCYTES % 10.4 % (0.0-11.0); NEUTROPHIL # 4.5 10^3/ul (1.6-7.5); NEUTROPHILS % 51.3 % (39.0-77.0); PLATELET COUNT 424 10^3/UL (140-415); RED BLOOD COUNT 3.25 10^6/ul (4.20-5.40); RED CELL DISTRIBUTION WIDTH 17.2 % (11.5-14.5); WHITE BLOOD COUNT 8.8 10^3/ul (4.8-10.8)
[2017-10-11 06:53] LABS: CREATININE 0.79 mg/dl (0.44-1.00); MAGNESIUM 1.5 mg/dl (1.7-2.5); POTASSIUM 4.1 mmol/L (3.5-5.1)
--- NOTE | 2017-10-11 07:21 | CONS ---
Date/Time of Note Date/Time of Note DATE: 10/11/17 TIME: 07:18 Assessment/Plan Assessment/Plan Chief Complaint/Hosp Course This is an unfortunate 8-year-old female who looks much older than her stated age who was admitted for lower extremity cellulitis. Patient currently does not have pain however I am asked to see patient to follow her for methadone maintenance standpoint. Patient states that she took her last dose of heroin 1 day prior to admission. Patient is a poor historian but she also admits to taking methamphetamines she drinks and she smokes.. States she has been incarcerated at least once in the past. The rest of the past medical history is unclear as patient confabulates and is a poor historian. Problems: Consultation Date/Type/Reason Admit Date/Time Sep 28, 2017 at 18:48 Type of Consultation: Pain management Referring Provider: IMER MARTINEZ 24 HR Interval Summary Free Text/Dictation Stated note for October 06 There has been no overt change in her clinical condition her pain is controlled with methadone with she has been taking for heroin abuse. She remains very stable. Exam/Review of Systems Vital Signs Vitals Vital Signs Date Time Temp Pulse Resp B/P Pulse Ox O2 Delivery O2 Flow Rate FiO2 10/11/17 02:00 98.5 96 20 105/62 96 10/09/17 13:15 Room Air Intake and Output 10/10/17 10/10/17 10/11/17 15:00 23:00 07:00 Intake Total 4550 ml 150 ml Output Total 4800 ml Balance -250 ml 150 ml Exam Psych: anxiety Respiratory: clear to auscultation, normal air movement Cardiovascular: nl pulses, regular rate and rhythm Results Result Diagram: 10/11/17 0550 10/11/17 0550 Results 24 hrs Laboratory Tests Test 10/11/17 05:50 White Blood Count 8.8 Red Blood Count 3.25 L Hemoglobin 9.1 L Hematocrit 28.4 L Mean Corpuscular Volume 87.4 Mean Corpuscular Hemoglobin 28.0 L Mean Corpuscular Hemoglobin Concent 32.0 Red Cell Distribution Width 17.2 H Platelet Count 424 H Mean Platelet Volume 8.5 Neutrophils % 51.3 Lymphocytes % 34.5 Monocytes % 10.4 Eosinophils % 2.3 Basophils % 0.8 Nucleated Red Blood Cells % 0.0 Neutrophils # 4.5 Lymphocytes # 3.0 H Monocytes # 0.9 Eosinophils # 0.2 Basophils # 0.1 Nucleated Red Blood Cells # 0.0 Sodium Level 133 L Potassium Level 4.1 Chloride Level 96 L Carbon Dioxide Level 34 H Anion Gap 7 L Blood Urea Nitrogen 20 Creatinine 0.79 Glucose Level 100 Calcium Level 9.0 Magnesium Level 1.5 L Medications Medications Current Medications Ondansetron HCl (Zofran Inj) 4 mg Q6H PRN IV NAUSEA AND/OR VOMITING; Start at 20:00 Miscellaneous Information (Pending Santyl Order For Wound Care) This patient martin... PRN PRN XX WOUND CARE; Start 09/29/17 at 16:30 Collagenase (Santyl) 1 applic DAILY TOP Last administered on 10/10/17 13:00; Admin Dose 1 APPLIC; Start 09/30/17 at 09:00 Collagenase (Santyl) 1 applic PRN PRN TOP WOUND CARE; Start 09/29/17 at 17:00 Zinc Sulfate (Zinc Sulfate) 220 mg DAILY PO Last administered on 10/10/17 08: 44; Admin Dose 220 MG; Start 10/01/17 at 09:00 Methadone HCl (Methadone) 40 mg DAILY PO Last administered on 10/10/17 08:44; Admin Dose 40 MG; Start 10/01/17 at 09:00 Famotidine 20 mg 20 mg DAILY PO Last administered on 10/10/17 08:44; Admin Dose 20 MG; Start 10/02/17 at 09:00 Ciprofloxacin/ Dextrose (Cipro Ivpb) 200 ml @ 200 mls/hr Q12 IVPB Last administered on 10/10/17 21:40; Admin Dose 200 MLS/HR; Start 10/01/17 at 21:00 IV Flush (NS 10 ml) 10 ml PRN PRN IV IV PROTOCOL; Start 10/02/17 at 17:30 Ascorbic Acid (Vitamin C) 500 mg BID PO Last administered on 10/10/17 21:40; Admin Dose 500 MG; Start 10/04/17 at 21:00 Multivitamins Therapeutic (Theragran) 1 tab DAILY PO Last administered on 08:44; Admin Dose 1 TAB; Start 10/05/17 at 09:00 Metoprolol Tartrate (Lopressor) 12.5 mg BID PO Last administered on 10/10/17 08:45; Admin Dose 12.5 MG; Start 10/05/17 at 21:00 Acetaminophen (Tylenol Tab) 650 mg Q6H PRN PO PAIN AND OR ELEVATED TEMP Last administered on 10/09/17 21:11; Admin Dose 650 MG; Start 10/06/17 at 20:30 Ferrous Gluconate (Fergon) 325 mg BID PO Last administered on 10/10/17 21:40; Admin Dose 325 MG; Start 10/07/17 at 21:00 Cholecalciferol 2000 unit 2,000 unit DAILY PO Last administered on 10/10/17 16 :00; Admin Dose 2,000 UNIT; Start 10/07/17 at 12:30 Vancomycin HCl/ Dextrose/Water (Vancocin/D5W) 150 ml @ 75 mls/hr Q12H IVPB Last administered on 10/11/17 04:14; Admin Dose 75 MLS/HR; Start 10/10/17 at 04 :00 Apixaban (Eliquis) 10 mg BID PO Last administered on 10/10/17 21:41; Admin Dose 10 MG; Start 10/10/17 at 21:00; Stop 10/17/17 at 20:59 Apixaban (Eliquis) 5 mg BID PO ; Start 10/17/17 at 09:00 KALE MARES Oct 11, 2017 07:21
--- NOTE | 2017-10-11 07:22 | CONS ---
Date/Time of Note Date/Time of Note DATE: 10/11/17 TIME: 07:21 Assessment/Plan Assessment/Plan Chief Complaint/Hosp Course This is an unfortunate 8-year-old female who looks much older than her stated age who was admitted for lower extremity cellulitis. Patient currently does not have pain however I am asked to see patient to follow her for methadone maintenance standpoint. Patient states that she took her last dose of heroin 1 day prior to admission. Patient is a poor historian but she also admits to taking methamphetamines she drinks and she smokes.. States she has been incarcerated at least once in the past. The rest of the past medical history is unclear as patient confabulates and is a poor historian. Problems: Additional Assessment/Plan Patient remains stable pain is controlled she has no major complaints. She remains on methadone both for pain management and for heroin addiction. Consultation Date/Type/Reason Admit Date/Time Sep 28, 2017 at 18:48 Hx of Present Illness This is an unfortunate 8-year-old female who looks much older than her stated age who was admitted for lower extremity cellulitis. Patient currently does not have pain however I am asked to see patient to follow her for methadone maintenance standpoint. Patient states that she took her last dose of heroin 1 day prior to admission. Patient is a poor historian but she also admits to taking methamphetamines she drinks and she smokes.. States she has been incarcerated at least once in the past. The rest of the past medical history is unclear as patient confabulates and is a poor historian. Social History Smoking Status: Current every day smoker Exam/Review of Systems Vital Signs Vitals Vital Signs Date Time Temp Pulse Resp B/P Pulse Ox O2 Delivery O2 Flow Rate FiO2 10/11/17 02:00 98.5 96 20 105/62 96 10/09/17 13:15 Room Air Intake and Output 10/10/17 10/10/17 10/11/17 15:00 23:00 07:00 Intake Total 4550 ml 150 ml Output Total 4800 ml Balance -250 ml 150 ml Exam Psych: anxiety Neurological: CONTINUOUS DRIER OPERATOR II-XII intact, nl mental status, nl speech, nl strength, No DTR's symmetric, No confused, No focal weakness, No lethargic, No numbness , No other, No reflexes, No unresponsive Results Result Diagram: 10/11/17 0550 10/11/17 0550 Results 24 hrs Laboratory Tests Test 10/11/17 05:50 White Blood Count 8.8 Red Blood Count 3.25 L Hemoglobin 9.1 L Hematocrit 28.4 L Mean Corpuscular Volume 87.4 Mean Corpuscular Hemoglobin 28.0 L Mean Corpuscular Hemoglobin Concent 32.0 Red Cell Distribution Width 17.2 H Platelet Count 424 H Mean Platelet Volume 8.5 Neutrophils % 51.3 Lymphocytes % 34.5 Monocytes % 10.4 Eosinophils % 2.3 Basophils % 0.8 Nucleated Red Blood Cells % 0.0 Neutrophils # 4.5 Lymphocytes # 3.0 H Monocytes # 0.9 Eosinophils # 0.2 Basophils # 0.1 Nucleated Red Blood Cells # 0.0 Sodium Level 133 L Potassium Level 4.1 Chloride Level 96 L Carbon Dioxide Level 34 H Anion Gap 7 L Blood Urea Nitrogen 20 Creatinine 0.79 Glucose Level 100 Calcium Level 9.0 Magnesium Level 1.5 L Medications Medications Current Medications Ondansetron HCl (Zofran Inj) 4 mg Q6H PRN IV NAUSEA AND/OR VOMITING; Start at 20:00 Miscellaneous Information (Pending Santyl Order For Wound Care) This patient martin... PRN PRN XX WOUND CARE; Start 09/29/17 at 16:30 Collagenase (Santyl) 1 applic DAILY TOP Last administered on 10/10/17 13:00; Admin Dose 1 APPLIC; Start 09/30/17 at 09:00 Collagenase (Santyl) 1 applic PRN PRN TOP WOUND CARE; Start 09/29/17 at 17:00 Zinc Sulfate (Zinc Sulfate) 220 mg DAILY PO Last administered on 10/10/17 08: 44; Admin Dose 220 MG; Start 10/01/17 at 09:00 Methadone HCl (Methadone) 40 mg DAILY PO Last administered on 10/10/17 08:44; Admin Dose 40 MG; Start 10/01/17 at 09:00 Famotidine 20 mg 20 mg DAILY PO Last administered on 10/10/17 08:44; Admin Dose 20 MG; Start 10/02/17 at 09:00 Ciprofloxacin/ Dextrose (Cipro Ivpb) 200 ml @ 200 mls/hr Q12 IVPB Last administered on 10/10/17 21:40; Admin Dose 200 MLS/HR; Start 10/01/17 at 21:00 IV Flush (NS 10 ml) 10 ml PRN PRN IV IV PROTOCOL; Start 10/02/17 at 17:30 Ascorbic Acid (Vitamin C) 500 mg BID PO Last administered on 10/10/17 21:40; Admin Dose 500 MG; Start 10/04/17 at 21:00 Multivitamins Therapeutic (Theragran) 1 tab DAILY PO Last administered on 08:44; Admin Dose 1 TAB; Start 10/05/17 at 09:00 Metoprolol Tartrate (Lopressor) 12.5 mg BID PO Last administered on 10/10/17 08:45; Admin Dose 12.5 MG; Start 10/05/17 at 21:00 Acetaminophen (Tylenol Tab) 650 mg Q6H PRN PO PAIN AND OR ELEVATED TEMP Last administered on 10/09/17 21:11; Admin Dose 650 MG; Start 10/06/17 at 20:30 Ferrous Gluconate (Fergon) 325 mg BID PO Last administered on 10/10/17 21:40; Admin Dose 325 MG; Start 10/07/17 at 21:00 Cholecalciferol 2000 unit 2,000 unit DAILY PO Last administered on 10/10/17 16 :00; Admin Dose 2,000 UNIT; Start 10/07/17 at 12:30 Vancomycin HCl/ Dextrose/Water (Vancocin/D5W) 150 ml @ 75 mls/hr Q12H IVPB Last administered on 10/11/17 04:14; Admin Dose 75 MLS/HR; Start 10/10/17 at 04 :00 Apixaban (Eliquis) 10 mg BID PO Last administered on 10/10/17 21:41; Admin Dose 10 MG; Start 10/10/17 at 21:00; Stop 10/17/17 at 20:59 Apixaban (Eliquis) 5 mg BID PO ; Start 10/17/17 at 09:00 KALE MARES Oct 11, 2017 07:22
[2017-10-11] MEDS: METOPROLOL 25 MG TAB PO SCH ×2 (09:00→20:24)
[2017-10-11] MEDS: CIPROFLOXACIN 400MG/D5W 200 ML IVPB SCH ×2 (09:34→20:24)
[2017-10-11] MEDS: ASCORBIC ACID 500 MG TAB PO SCH ×2 (09:36→20:24)
[2017-10-11] MEDS: CHOLECALCIFEROL 2,000 UNIT CAP PO SCH (09:36)
[2017-10-11] MEDS: FAMOTIDINE 20 MG TAB PO SCH (09:36)
[2017-10-11] MEDS: FERROUS GLUCONATE (EC) 325 MG TAB PO SCH ×2 (09:36→20:24)
[2017-10-11] MEDS: ZINC SULFATE 220 MG CAP PO SCH (09:36)
[2017-10-11] MEDS: METHADONE 10 MG TAB PO SCH (09:36)
[2017-10-11] MEDS: MULTIVITAMINS THERAPEUTIC TAB PO SCH (09:36)
[2017-10-11] MEDS: COLLAGENASE 30 GM TUBE TOP SCH (09:37)
[2017-10-11] MEDS: APIXABAN 5 MG TABLET PO SCH ×2 (09:38→20:24)
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
[2017-10-11] MEDS ORDERED: MAGNESIUM SULFATE 4 GM/100 ML 100 ML IVPB ONE (11:00)
--- NOTE | 2017-10-11 11:14 | CONS ---
Date/Time of Note Date/Time of Note DATE: 10/11/17 TIME: 11:10 Assessment/Plan Assessment/Plan Chief Complaint/Hosp Course IMPRESSION: 1. Preoperative evaluation prior to placement of a peritoneal dialysis catheter.-negative trop x 3/EF 45-50% by echo/no sig valve lesions. Now post-op s/p Debridement of LE wound 2. Hypertension-borderline hypotension 3. Left lower extremity deep venous thrombosis. 4. Anemia. 5. Prior failed chest wall catheters. 6. cardiomyopathy-EF 45%-? due to substance abuse with amphetamines Recc: -continue anticoagulation now with eliquis -Continue local wound care -Continue abx's -Continue low dose BB as tolerated -Local wound care Problems: Consultation Date/Type/Reason Admit Date/Time Sep 28, 2017 at 18:48 Initial Consult Date 10/04/2017 Type of Consultation: cardiology Reason for Consultation pre-op Referring Provider: IMER MARTINEZ Exam/Review of Systems Vital Signs Vitals Vital Signs Date Time Temp Pulse Resp B/P Pulse Ox O2 Delivery O2 Flow Rate FiO2 10/11/17 02:00 98.5 96 20 105/62 96 10/09/17 13:15 Room Air Intake and Output 10/10/17 10/10/17 10/11/17 15:00 23:00 07:00 Intake Total 4550 ml 150 ml Output Total 4800 ml Balance -250 ml 150 ml Exam Review of Systems: CONSTITUTIONAL: No fevers, chills. PULMONARY: No sob CARDIOVASCULAR: No chest pain/palpitations GASTROINTESTINAL: No nausea/vomiting. GENITOURINARY: No hematuria/dysuria. MUSCULOSKELETAL: No myagias/arthalgias. PSYCHIATRIC: The patient denies depression. NEUROLOGIC: No weakness Constitutional: alert, oriented Psych: no complaints Head: normocephalic ENMT: mucosa pink and moist Neck: jvd (9 cm water), supple Respiratory: diminished breath sounds Cardiovascular: regular rate and rhythm Gastrointestinal: non-tender, soft Musculoskeletal: muscle tone (normal) Extremities: edema (none) Neurological: other (No focal deficits) Results Result Diagram: 10/11/17 0550 10/11/17 0550 Results 24 hrs Laboratory Tests Test 10/11/17 05:50 White Blood Count 8.8 Red Blood Count 3.25 L Hemoglobin 9.1 L Hematocrit 28.4 L Mean Corpuscular Volume 87.4 Mean Corpuscular Hemoglobin 28.0 L Mean Corpuscular Hemoglobin Concent 32.0 Red Cell Distribution Width 17.2 H Platelet Count 424 H Mean Platelet Volume 8.5 Neutrophils % 51.3 Lymphocytes % 34.5 Monocytes % 10.4 Eosinophils % 2.3 Basophils % 0.8 Nucleated Red Blood Cells % 0.0 Neutrophils # 4.5 Lymphocytes # 3.0 H Monocytes # 0.9 Eosinophils # 0.2 Basophils # 0.1 Nucleated Red Blood Cells # 0.0 Sodium Level 133 L Potassium Level 4.1 Chloride Level 96 L Carbon Dioxide Level 34 H Anion Gap 7 L Blood Urea Nitrogen 20 Creatinine 0.79 Glucose Level 100 Calcium Level 9.0 Magnesium Level 1.5 L Medications Medications Current Medications Ondansetron HCl (Zofran Inj) 4 mg Q6H PRN IV NAUSEA AND/OR VOMITING; Start at 20:00 Miscellaneous Information (Pending Santyl Order For Wound Care) This patient martin... PRN PRN XX WOUND CARE; Start 09/29/17 at 16:30 Collagenase (Santyl) 1 applic DAILY TOP Last administered on 10/11/17 09:37; Admin Dose 1 APPLIC; Start 09/30/17 at 09:00 Collagenase (Santyl) 1 applic PRN PRN TOP WOUND CARE; Start 09/29/17 at 17:00 Zinc Sulfate (Zinc Sulfate) 220 mg DAILY PO Last administered on 10/11/17 09: 36; Admin Dose 220 MG; Start 10/01/17 at 09:00 Methadone HCl (Methadone) 40 mg DAILY PO Last administered on 10/11/17 09:36; Admin Dose 40 MG; Start 10/01/17 at 09:00 Famotidine 20 mg 20 mg DAILY PO Last administered on 10/11/17 09:36; Admin Dose 20 MG; Start 10/02/17 at 09:00 Ciprofloxacin/ Dextrose (Cipro Ivpb) 200 ml @ 200 mls/hr Q12 IVPB Last administered on 10/11/17 09:34; Admin Dose 200 MLS/HR; Start 10/01/17 at 21:00 IV Flush (NS 10 ml) 10 ml PRN PRN IV IV PROTOCOL; Start 10/02/17 at 17:30 Ascorbic Acid (Vitamin C) 500 mg BID PO Last administered on 10/11/17 09:36; Admin Dose 500 MG; Start 10/04/17 at 21:00 Multivitamins Therapeutic (Theragran) 1 tab DAILY PO Last administered on 09:36; Admin Dose 1 TAB; Start 10/05/17 at 09:00 Metoprolol Tartrate (Lopressor) 12.5 mg BID PO Last administered on 10/10/17 08:45; Admin Dose 12.5 MG; Start 10/05/17 at 21:00 Acetaminophen (Tylenol Tab) 650 mg Q6H PRN PO PAIN AND OR ELEVATED TEMP Last administered on 10/09/17 21:11; Admin Dose 650 MG; Start 10/06/17 at 20:30 Ferrous Gluconate (Fergon) 325 mg BID PO Last administered on 10/11/17 09:36; Admin Dose 325 MG; Start 10/07/17 at 21:00 Cholecalciferol 2000 unit 2,000 unit DAILY PO Last administered on 10/11/17 09 :36; Admin Dose 2,000 UNIT; Start 10/07/17 at 12:30 Vancomycin HCl/ Dextrose/Water (Vancocin/D5W) 150 ml @ 75 mls/hr Q12H IVPB Last administered on 10/11/17 04:14; Admin Dose 75 MLS/HR; Start 10/10/17 at 04 :00 Apixaban (Eliquis) 10 mg BID PO Last administered on 10/11/17 09:38; Admin Dose 10 MG; Start 10/10/17 at 21:00; Stop 10/17/17 at 20:59 Apixaban 5 mg 5 mg BID PO ; Start 10/17/17 at 09:00 Magnesium Sulfate (Magnesium Sulfate 4 Gm/100 ml) 100 ml @ 25 mls/hr ONCE ONCE IVPB ; Start 10/11/17 at 11:00; Stop 10/11/17 at 14:59 CAYDEN ROSE Oct 11, 2017 11:14
--- NOTE | 2017-10-11 12:47 | CONS ---
Date/Time of Note Date/Time of Note DATE: 10/11/17 TIME: 12:46 Assessment/Plan Assessment/Plan Chief Complaint/Hosp Course SUBJECTIVE: No events overnight. The patient is awake, feels good MICROBIOLOGY: Right leg culture growing Strep pyogenes Corynebacterium species and Pseudomonas aeruginosa. Left buttock wound culture growing Strep pyogenes. Blood culture had been negative. ANTIMICROBIALS: The patient is on: 1. IV vancomycin. 2. Ciprofloxacin. PHYSICAL EXAMINATION: GENERAL: This is a fragile, well-developed, elderly woman who is awake, in no distress. HEENT: Head atraumatic, normocephalic. Sclerae anicteric. Buccal mucosa dry. NECK: Supple. CHEST: Rise symmetrical. Breath sounds diminished to bases. HEART: S1, S2. ABDOMEN: Soft, bowel tones present. EXTREMITIES: Without cyanosis. Bilateral lower extremities: Chronic wounds are more on the right. Left leg with an area of fluctuance below knee. ASSESSMENT: 1. Systemic inflammatory response syndrome with resolving leukocytosis, status post sepsis with fevers, tachycardia and encephalopathy. 2. Multiple infected wounds, questionable left leg abscess. 3. Chronic obstructive pulmonary disease. 4. Cachexia. 5. History of IV drug abuse. 6. RLE chronic wound s/p i&d 10/09/17 PLAN: The patient remains stable, continue abx, local wound care per podiatry rec-s [facility] staff Problems: Consultation Date/Type/Reason Admit Date/Time Sep 28, 2017 at 18:48 Type of Consultation: id Referring Provider: IMER MARTINEZ Exam/Review of Systems Vital Signs Vitals Vital Signs Date Time Temp Pulse Resp B/P Pulse Ox O2 Delivery O2 Flow Rate FiO2 10/11/17 02:00 98.5 96 20 105/62 96 10/09/17 13:15 Room Air Intake and Output 10/10/17 10/10/17 10/11/17 15:00 23:00 07:00 Intake Total 4550 ml 150 ml Output Total 4800 ml Balance -250 ml 150 ml Results Result Diagram: 10/11/17 0550 10/11/17 0550 Results 24 hrs Laboratory Tests Test 10/11/17 05:50 White Blood Count 8.8 Red Blood Count 3.25 L Hemoglobin 9.1 L Hematocrit 28.4 L Mean Corpuscular Volume 87.4 Mean Corpuscular Hemoglobin 28.0 L Mean Corpuscular Hemoglobin Concent 32.0 Red Cell Distribution Width 17.2 H Platelet Count 424 H Mean Platelet Volume 8.5 Neutrophils % 51.3 Lymphocytes % 34.5 Monocytes % 10.4 Eosinophils % 2.3 Basophils % 0.8 Nucleated Red Blood Cells % 0.0 Neutrophils # 4.5 Lymphocytes # 3.0 H Monocytes # 0.9 Eosinophils # 0.2 Basophils # 0.1 Nucleated Red Blood Cells # 0.0 Sodium Level 133 L Potassium Level 4.1 Chloride Level 96 L Carbon Dioxide Level 34 H Anion Gap 7 L Blood Urea Nitrogen 20 Creatinine 0.79 Glucose Level 100 Calcium Level 9.0 Magnesium Level 1.5 L Medications Medications Current Medications Ondansetron HCl (Zofran Inj) 4 mg Q6H PRN IV NAUSEA AND/OR VOMITING; Start at 20:00 Miscellaneous Information (Pending Santyl Order For Wound Care) This patient martin... PRN PRN XX WOUND CARE; Start 09/29/17 at 16:30 Collagenase (Santyl) 1 applic DAILY TOP Last administered on 10/11/17 09:37; Admin Dose 1 APPLIC; Start 09/30/17 at 09:00 Collagenase (Santyl) 1 applic PRN PRN TOP WOUND CARE; Start 09/29/17 at 17:00 Zinc Sulfate (Zinc Sulfate) 220 mg DAILY PO Last administered on 10/11/17 09: 36; Admin Dose 220 MG; Start 10/01/17 at 09:00 Methadone HCl (Methadone) 40 mg DAILY PO Last administered on 10/11/17 09:36; Admin Dose 40 MG; Start 10/01/17 at 09:00 Famotidine 20 mg 20 mg DAILY PO Last administered on 10/11/17 09:36; Admin Dose 20 MG; Start 10/02/17 at 09:00 Ciprofloxacin/ Dextrose (Cipro Ivpb) 200 ml @ 200 mls/hr Q12 IVPB Last administered on 10/11/17 09:34; Admin Dose 200 MLS/HR; Start 10/01/17 at 21:00 IV Flush (NS 10 ml) 10 ml PRN PRN IV IV PROTOCOL; Start 10/02/17 at 17:30 Ascorbic Acid (Vitamin C) 500 mg BID PO Last administered on 10/11/17 09:36; Admin Dose 500 MG; Start 10/04/17 at 21:00 Multivitamins Therapeutic (Theragran) 1 tab DAILY PO Last administered on 09:36; Admin Dose 1 TAB; Start 10/05/17 at 09:00 Metoprolol Tartrate (Lopressor) 12.5 mg BID PO Last administered on 10/10/17 08:45; Admin Dose 12.5 MG; Start 10/05/17 at 21:00 Acetaminophen (Tylenol Tab) 650 mg Q6H PRN PO PAIN AND OR ELEVATED TEMP Last administered on 10/09/17 21:11; Admin Dose 650 MG; Start 10/06/17 at 20:30 Ferrous Gluconate (Fergon) 325 mg BID PO Last administered on 10/11/17 09:36; Admin Dose 325 MG; Start 10/07/17 at 21:00 Cholecalciferol 2000 unit 2,000 unit DAILY PO Last administered on 10/11/17 09 :36; Admin Dose 2,000 UNIT; Start 10/07/17 at 12:30 Vancomycin HCl/ Dextrose/Water (Vancocin/D5W) 150 ml @ 75 mls/hr Q12H IVPB Last administered on 10/11/17 04:14; Admin Dose 75 MLS/HR; Start 10/10/17 at 04 :00 Apixaban (Eliquis) 10 mg BID PO Last administered on 10/11/17 09:38; Admin Dose 10 MG; Start 10/10/17 at 21:00; Stop 10/17/17 at 20:59 Apixaban 5 mg 5 mg BID PO ; Start 10/17/17 at 09:00 Magnesium Sulfate (Magnesium Sulfate 4 Gm/100 ml) 100 ml @ 25 mls/hr ONCE ONCE IVPB Last administered on 10/11/17 11:15; Admin Dose 25 MLS/HR; Start at 11:00; Stop 10/11/17 at 14:59 TELMA DUBON NP Oct 11, 2017 12:47
[2017-10-11 13:33] VITALS: BP 92/58; RESP 18
[2017-10-11 20:00] VITALS: BP 93/62; RESP 20
[2017-10-11] MEDS: ZOLPIDEM 5 MG TAB PO PRN (22:52)
[2017-10-12] VITALS (7 sets, daily range): BP systolic 86–116; BP diastolic 52–70; PULSE 77–78; RESP 18–20
[2017-10-12] MEDS: VANCOMYCIN 750 MG in DEXTROSE 5% 150 ML IVPB SCH ×2 (04:04→15:54)
[2017-10-12 08:55] LABS: CALCIUM 8.7 mg/dl (8.4-10.2); CREATININE 0.76 mg/dl (0.44-1.00); MAGNESIUM 1.8 mg/dl (1.7-2.5); POTASSIUM 4.2 mmol/L (3.5-5.1)
[2017-10-12] MEDS: COLLAGENASE 30 GM TUBE TOP SCH (09:00)
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
[2017-10-12] MEDS: CIPROFLOXACIN 400MG/D5W 200 ML IVPB SCH ×2 (09:28→21:27)
[2017-10-12] MEDS: ZINC SULFATE 220 MG CAP PO SCH (09:28)
[2017-10-12] MEDS: ASCORBIC ACID 500 MG TAB PO SCH ×2 (09:29→21:33)
[2017-10-12] MEDS: MULTIVITAMINS THERAPEUTIC TAB PO SCH (09:29)
[2017-10-12] MEDS: FAMOTIDINE 20 MG TAB PO SCH (09:30)
[2017-10-12] MEDS: METOPROLOL 25 MG TAB PO SCH ×2 (09:30→21:34)
[2017-10-12] MEDS: CHOLECALCIFEROL 2,000 UNIT CAP PO SCH (09:30)
[2017-10-12] MEDS: APIXABAN 5 MG TABLET PO SCH ×2 (09:32→21:34)
[2017-10-12] MEDS: METHADONE 10 MG TAB PO SCH (09:32)
[2017-10-12] MEDS: FERROUS GLUCONATE (EC) 325 MG TAB PO SCH ×2 (09:32→21:33)
--- NOTE | 2017-10-12 13:17 | CONS ---
Date/Time of Note Date/Time of Note DATE: 10/12/17 TIME: 13:13 Assessment/Plan Assessment/Plan Chief Complaint/Hosp Course IMPRESSION: 1. Preoperative evaluation prior to placement of a peritoneal dialysis catheter.-negative trop x 3/EF 45-50% by echo/no sig valve lesions. Now post-op s/p Debridement of LE wound 2. Hypertension-borderline hypotension 3. Left lower extremity deep venous thrombosis. 4. Anemia. 5. Prior failed chest wall catheters. 6. cardiomyopathy-EF 45%-? due to substance abuse with amphetamines Recc: -continue anticoagulation now with eliquis -Continue local wound care -Continue abx's -Continue low dose BB as tolerated -Local wound care Problems: Consultation Date/Type/Reason Admit Date/Time Sep 28, 2017 at 18:48 Initial Consult Date 10/04/2017 Type of Consultation: cardiology Reason for Consultation Pre-op/cardiomyopathy Referring Provider: IMER MARTINEZ Exam/Review of Systems Vital Signs Vitals Vital Signs Date Time Temp Pulse Resp B/P Pulse Ox O2 Delivery O2 Flow Rate FiO2 10/12/17 08:20 98.1 98 18 110/70 97 10/09/17 13:15 Room Air Intake and Output 10/11/17 10/11/17 10/12/17 15:00 23:00 07:00 Intake Total 200 ml 1310 ml 500 ml Output Total 1100 ml 1000 ml Balance 200 ml 210 ml -500 ml Exam Review of Systems: CONSTITUTIONAL: No fevers, chills. PULMONARY: No sob CARDIOVASCULAR: No chest pain/palpitations GASTROINTESTINAL: No nausea/vomiting. GENITOURINARY: No hematuria/dysuria. MUSCULOSKELETAL: No myagias/arthalgias. PSYCHIATRIC: The patient denies depression. NEUROLOGIC: No weakness Constitutional: alert, oriented Head: normocephalic ENMT: mucosa pink and moist Neck: jvd (9 cm water), supple Respiratory: diminished breath sounds (at bases/B) Cardiovascular: regular rate and rhythm Gastrointestinal: non-tender, soft Musculoskeletal: muscle tone (normal) Extremities: pitting pedal edema (R>L) Neurological: other (No focal deficits) Results Result Diagram: 10/11/17 0550 10/12/17 0744 Results 24 hrs Laboratory Tests Test 10/12/17 07:44 Sodium Level 132 L Potassium Level 4.2 Chloride Level 97 Carbon Dioxide Level 30 Anion Gap 9 Blood Urea Nitrogen 21 H Creatinine 0.76 Glucose Level 87 Calcium Level 8.7 Magnesium Level 1.8 Medications Medications Current Medications Ondansetron HCl (Zofran Inj) 4 mg Q6H PRN IV NAUSEA AND/OR VOMITING; Start at 20:00 Miscellaneous Information (Pending Santyl Order For Wound Care) This patient martin... PRN PRN XX WOUND CARE; Start 09/29/17 at 16:30 Collagenase (Santyl) 1 applic DAILY TOP Last administered on 10/11/17 09:37; Admin Dose 1 APPLIC; Start 09/30/17 at 09:00 Collagenase (Santyl) 1 applic PRN PRN TOP WOUND CARE; Start 09/29/17 at 17:00 Zinc Sulfate (Zinc Sulfate) 220 mg DAILY PO Last administered on 10/12/17 09: 28; Admin Dose 220 MG; Start 10/01/17 at 09:00 Methadone HCl (Methadone) 40 mg DAILY PO Last administered on 10/12/17 09:32; Admin Dose 40 MG; Start 10/01/17 at 09:00 Famotidine 20 mg 20 mg DAILY PO Last administered on 10/12/17 09:30; Admin Dose 20 MG; Start 10/02/17 at 09:00 Ciprofloxacin/ Dextrose (Cipro Ivpb) 200 ml @ 200 mls/hr Q12 IVPB Last administered on 10/12/17 09:28; Admin Dose 200 MLS/HR; Start 10/01/17 at 21:00 IV Flush (NS 10 ml) 10 ml PRN PRN IV IV PROTOCOL; Start 10/02/17 at 17:30 Ascorbic Acid (Vitamin C) 500 mg BID PO Last administered on 10/12/17 09:29; Admin Dose 500 MG; Start 10/04/17 at 21:00 Multivitamins Therapeutic (Theragran) 1 tab DAILY PO Last administered on 09:29; Admin Dose 1 TAB; Start 10/05/17 at 09:00 Metoprolol Tartrate (Lopressor) 12.5 mg BID PO Last administered on 10/12/17 09:30; Admin Dose 12.5 MG; Start 10/05/17 at 21:00 Acetaminophen (Tylenol Tab) 650 mg Q6H PRN PO PAIN AND OR ELEVATED TEMP Last administered on 10/09/17 21:11; Admin Dose 650 MG; Start 10/06/17 at 20:30 Ferrous Gluconate (Fergon) 325 mg BID PO Last administered on 10/12/17 09:32; Admin Dose 325 MG; Start 10/07/17 at 21:00 Cholecalciferol 2000 unit 2,000 unit DAILY PO Last administered on 10/12/17 09 :30; Admin Dose 2,000 UNIT; Start 10/07/17 at 12:30 Vancomycin HCl/ Dextrose/Water (Vancocin/D5W) 150 ml @ 75 mls/hr Q12H IVPB Last administered on 10/12/17 04:04; Admin Dose 75 MLS/HR; Start 10/10/17 at 04 :00 Apixaban (Eliquis) 10 mg BID PO Last administered on 10/12/17 09:32; Admin Dose 10 MG; Start 10/10/17 at 21:00; Stop 10/17/17 at 20:59 Apixaban (Eliquis) 5 mg BID PO ; Start 10/17/17 at 09:00 Zolpidem Tartrate (Ambien) 10 mg HS PRN PO INSOMNIA Last administered on 22:52; Admin Dose 10 MG; Start 10/11/17 at 23:00 Miscellaneous Information (*Rx Drug Level Order Reminder*) 1 ONCE ONCE XX ; Start 10/13/17 at 03:00; Stop 10/13/17 at 03:01 CAYDEN ROSE Oct 12, 2017 13:17
--- NOTE | 2017-10-12 14:03 | CONS ---
Date/Time of Note Date/Time of Note DATE: 10/12/17 TIME: 14:02 Assessment/Plan Assessment/Plan Chief Complaint/Hosp Course SUBJECTIVE: No events overnight. The patient is awake, feels good MICROBIOLOGY: Right leg culture growing Strep pyogenes Corynebacterium species and Pseudomonas aeruginosa. Left buttock wound culture growing Strep pyogenes. Blood culture had been negative. ANTIMICROBIALS: 1. IV vancomycin. 2. Ciprofloxacin. PHYSICAL EXAMINATION: GENERAL: This is a fragile, well-developed, elderly woman who is awake, in no distress. HEENT: Head atraumatic, normocephalic. Sclerae anicteric. Buccal mucosa dry. NECK: Supple. CHEST: Rise symmetrical. Breath sounds diminished to bases. HEART: S1, S2. ABDOMEN: Soft, bowel tones present. EXTREMITIES: Without cyanosis. Bilateral lower extremities: Chronic wounds are more on the right. Left leg with an area of fluctuance below knee. ASSESSMENT: 1. Systemic inflammatory response syndrome with resolving leukocytosis, status post sepsis with fevers, tachycardia and encephalopathy. 2. Multiple infected wounds, questionable left leg abscess. 3. Chronic obstructive pulmonary disease. 4. Cachexia. 5. History of IV drug abuse. 6. RLE chronic wound s/p i&d 10/09/17 PLAN: The patient remains stable, continue abx, local wound care per podiatry rec-s, anticipate dc on oral Cipro when cleared by podiatry [facility] staff Problems: Consultation Date/Type/Reason Admit Date/Time Sep 28, 2017 at 18:48 Type of Consultation: ID Referring Provider: IMER MARTINEZ Exam/Review of Systems Vital Signs Vitals Vital Signs Date Time Temp Pulse Resp B/P Pulse Ox O2 Delivery O2 Flow Rate FiO2 10/12/17 13:55 98.9 82 18 86/52 96 10/09/17 13:15 Room Air Intake and Output 10/11/17 10/11/17 10/12/17 15:00 23:00 07:00 Intake Total 200 ml 1310 ml 500 ml Output Total 1100 ml 1000 ml Balance 200 ml 210 ml -500 ml Results Result Diagram: 10/11/17 0550 10/12/17 0744 Results 24 hrs Laboratory Tests Test 10/12/17 07:44 Sodium Level 132 L Potassium Level 4.2 Chloride Level 97 Carbon Dioxide Level 30 Anion Gap 9 Blood Urea Nitrogen 21 H Creatinine 0.76 Glucose Level 87 Calcium Level 8.7 Magnesium Level 1.8 Medications Medications Current Medications Ondansetron HCl (Zofran Inj) 4 mg Q6H PRN IV NAUSEA AND/OR VOMITING; Start at 20:00 Miscellaneous Information (Pending Santyl Order For Wound Care) This patient martin... PRN PRN XX WOUND CARE; Start 09/29/17 at 16:30 Collagenase (Santyl) 1 applic DAILY TOP Last administered on 10/11/17 09:37; Admin Dose 1 APPLIC; Start 09/30/17 at 09:00 Collagenase (Santyl) 1 applic PRN PRN TOP WOUND CARE; Start 09/29/17 at 17:00 Zinc Sulfate (Zinc Sulfate) 220 mg DAILY PO Last administered on 10/12/17 09: 28; Admin Dose 220 MG; Start 10/01/17 at 09:00 Methadone HCl (Methadone) 40 mg DAILY PO Last administered on 10/12/17 09:32; Admin Dose 40 MG; Start 10/01/17 at 09:00 Famotidine 20 mg 20 mg DAILY PO Last administered on 10/12/17 09:30; Admin Dose 20 MG; Start 10/02/17 at 09:00 Ciprofloxacin/ Dextrose (Cipro Ivpb) 200 ml @ 200 mls/hr Q12 IVPB Last administered on 10/12/17 09:28; Admin Dose 200 MLS/HR; Start 10/01/17 at 21:00 IV Flush (NS 10 ml) 10 ml PRN PRN IV IV PROTOCOL; Start 10/02/17 at 17:30 Ascorbic Acid (Vitamin C) 500 mg BID PO Last administered on 10/12/17 09:29; Admin Dose 500 MG; Start 10/04/17 at 21:00 Multivitamins Therapeutic (Theragran) 1 tab DAILY PO Last administered on 09:29; Admin Dose 1 TAB; Start 10/05/17 at 09:00 Metoprolol Tartrate (Lopressor) 12.5 mg BID PO Last administered on 10/12/17 09:30; Admin Dose 12.5 MG; Start 10/05/17 at 21:00 Acetaminophen (Tylenol Tab) 650 mg Q6H PRN PO PAIN AND OR ELEVATED TEMP Last administered on 10/09/17 21:11; Admin Dose 650 MG; Start 10/06/17 at 20:30 Ferrous Gluconate (Fergon) 325 mg BID PO Last administered on 10/12/17 09:32; Admin Dose 325 MG; Start 10/07/17 at 21:00 Cholecalciferol 2000 unit 2,000 unit DAILY PO Last administered on 10/12/17 09 :30; Admin Dose 2,000 UNIT; Start 10/07/17 at 12:30 Vancomycin HCl/ Dextrose/Water (Vancocin/D5W) 150 ml @ 75 mls/hr Q12H IVPB Last administered on 10/12/17 04:04; Admin Dose 75 MLS/HR; Start 10/10/17 at 04 :00 Apixaban (Eliquis) 10 mg BID PO Last administered on 10/12/17 09:32; Admin Dose 10 MG; Start 10/10/17 at 21:00; Stop 10/17/17 at 20:59 Apixaban (Eliquis) 5 mg BID PO ; Start 10/17/17 at 09:00 Zolpidem Tartrate (Ambien) 10 mg HS PRN PO INSOMNIA Last administered on 22:52; Admin Dose 10 MG; Start 10/11/17 at 23:00 Miscellaneous Information (*Rx Drug Level Order Reminder*) 1 ONCE ONCE XX ; Start 10/13/17 at 03:00; Stop 10/13/17 at 03:01 TELMA DUBON NP Oct 12, 2017 14:03
--- NOTE | 2017-10-12 18:38 | PN ---
Date/Time of Note Date/Time of Note DATE: 10/12/17 TIME: 18:38 Assessment/Plan Lines/Catheters IV C[facility]ter Type (from [facility]): PICC Line Alarcon in Place (from Nrs): No Assessment/Plan Chief Complaint/Hosp Course -Bilateral lower extremity atherosclerosis with right lower extremity ulcer: It seems the patient has some component of atherosclerotic disease; however, the patient does have faint pedal pulses in which my suspicion would be low for having a nonhealing wound as a result of her atherosclerotic disease. Her noninvasive vascular studies did not demonstrate flow limiting infrainguinal stenosis. It seems the patient's noncompliance and not coming to the hospital and receiving medical care may be the main issue of her ulceration that has worsened over the past month. - S/P debridement and Acell application -Left IJ DVT: Continue anticoagulated with any PO regimen she can tolerate, also her being compliant and coverage by her insurance may be an issue. Recommend telephonic nurse case manager evaluation -Will need patient to be cleared and followup at [facility] -Continue with antibiotics. -Discussed with the patient regarding smoking cessation and IV drug abuse cessation -Optimize vascular status (BP meds, diet, nutrition, exercise, sugar control, antiplatelets). -Thank you for allowing me to partake in the care of your patient. Please call with any questions. Problems: Subjective 24 Hr Interval Summary no new vascular events Exam/Review of Systems Vital Signs Vitals Vital Signs Date Time Temp Pulse Resp B/P Pulse Ox O2 Delivery O2 Flow Rate FiO2 10/14/17 13:19 97.8 90 16 96/55 95 Intake and Output 10/13/17 10/13/17 10/14/17 15:00 23:00 07:00 Intake Total 400 ml 820 ml Output Total 901 ml Balance 400 ml -81 ml Exam Free Text/Dictation GENERAL: Alert and oriented x3. PULMONARY: Clear to auscultation bilaterally. CARDIOVASCULAR: S1, S2 present. ABDOMEN: Soft, nontender, nondistended. Bowel sounds positive. RIGHT LOWER EXTREMITY: Palpable femoral pulse, faint pedal pulse. Motor, sensory intact. Cap refill 3 seconds. lower leg dressing intact and dry LEFT LOWER EXTREMITY: Palpable femoral pulse, faint pedal pulse. Motor, sensory intact. Cap refill 3 seconds. Results Result Diagram: 10/11/17 0550 10/14/17 0548 OSEAS MARTINEZ MD Oct 12, 2017 18:38
[2017-10-12] MEDS: ZOLPIDEM 5 MG TAB PO PRN (21:33)
[2017-10-13 02:00] VITALS: BP 116/64; RESP 18
[2017-10-13] MEDS: VANCOMYCIN 750 MG in DEXTROSE 5% 150 ML IVPB SCH (05:09)
[2017-10-13 08:31] VITALS: BP_SYST 103; RESP 12
[2017-10-13] MEDS: METOPROLOL 25 MG TAB PO SCH (09:00)
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
[2017-10-13] MEDS: MULTIVITAMINS THERAPEUTIC TAB PO SCH (09:46)
[2017-10-13] MEDS: CHOLECALCIFEROL 2,000 UNIT CAP PO SCH (09:46)
[2017-10-13] MEDS: CIPROFLOXACIN 400MG/D5W 200 ML IVPB SCH ×2 (09:46→20:54)
[2017-10-13] MEDS: APIXABAN 5 MG TABLET PO SCH ×2 (09:47→20:54)
[2017-10-13] MEDS: ZINC SULFATE 220 MG CAP PO SCH (09:47)
[2017-10-13] MEDS: ASCORBIC ACID 500 MG TAB PO SCH ×2 (09:49→20:54)
[2017-10-13] MEDS: FAMOTIDINE 20 MG TAB PO SCH (09:49)
[2017-10-13] MEDS: METHADONE 10 MG TAB PO SCH (09:54)
[2017-10-13] MEDS: COLLAGENASE 30 GM TUBE TOP SCH (09:55)
[2017-10-13] MEDS: FERROUS GLUCONATE (EC) 325 MG TAB PO SCH ×2 (09:59→20:54)
--- NOTE | 2017-10-13 11:08 | CONS ---
Date/Time of Note Date/Time of Note DATE: 10/13/17 TIME: 11:06 Assessment/Plan Assessment/Plan Chief Complaint/Hosp Course IMPRESSION: 1. Preoperative evaluation prior to placement of a peritoneal dialysis catheter.-negative trop x 3/EF 45-50% by echo/no sig valve lesions. Now post-op s/p Debridement of LE wound 2. Hypertension-borderline hypotension 3. Left lower extremity deep venous thrombosis. 4. Anemia. 5. Prior failed chest wall catheters. 6. cardiomyopathy-EF 45%-? due to substance abuse with amphetamines Recc: -continue anticoagulation now with eliquis -Continue local wound care -Continue abx's -Hold BB given marginal BP -Local wound care Problems: Consultation Date/Type/Reason Admit Date/Time Sep 28, 2017 at 18:48 Initial Consult Date 10/04/2017 Type of Consultation: cardiology Reason for Consultation cardiomyopathy Referring Provider: IMER MARTINEZ Exam/Review of Systems Vital Signs Vitals Vital Signs Date Time Temp Pulse Resp B/P Pulse Ox O2 Delivery O2 Flow Rate FiO2 10/13/17 08:31 97.8 71 12 103/ 100 10/09/17 13:15 Room Air Intake and Output 10/12/17 10/12/17 10/13/17 15:00 23:00 07:00 Intake Total 350 ml 1590 ml 1850 ml Balance 350 ml 1590 ml 1850 ml Exam Review of Systems: CONSTITUTIONAL: No fevers, chills. PULMONARY: No sob CARDIOVASCULAR: No chest pain/palpitations GASTROINTESTINAL: No nausea/vomiting. GENITOURINARY: No hematuria/dysuria. MUSCULOSKELETAL: No myagias/arthalgias. PSYCHIATRIC: The patient denies depression. NEUROLOGIC: No weakness Constitutional: alert, oriented Psych: no complaints Head: normocephalic ENMT: mucosa pink and moist Neck: jvd (8-9 cm water), supple Respiratory: clear to auscultation Cardiovascular: regular rate and rhythm Gastrointestinal: non-tender, soft Musculoskeletal: muscle tone (normal) Extremities: edema (none) Neurological: other Results Result Diagram: 10/11/17 0550 10/12/17 0744 Results 24 hrs Laboratory Tests Test 10/13/17 03:24 Vancomycin Level Trough 18.4 Medications Medications Current Medications Ondansetron HCl (Zofran Inj) 4 mg Q6H PRN IV NAUSEA AND/OR VOMITING; Start at 20:00 Miscellaneous Information (Pending Santyl Order For Wound Care) This patient martin... PRN PRN XX WOUND CARE; Start 09/29/17 at 16:30 Collagenase (Santyl) 1 applic DAILY TOP Last administered on 10/13/17 09:55; Admin Dose 1 APPLIC; Start 09/30/17 at 09:00 Collagenase (Santyl) 1 applic PRN PRN TOP WOUND CARE; Start 09/29/17 at 17:00 Zinc Sulfate (Zinc Sulfate) 220 mg DAILY PO Last administered on 10/13/17 09: 47; Admin Dose 220 MG; Start 10/01/17 at 09:00 Methadone HCl (Methadone) 40 mg DAILY PO Last administered on 10/13/17 09:54; Admin Dose 40 MG; Start 10/01/17 at 09:00 Famotidine 20 mg 20 mg DAILY PO Last administered on 10/13/17 09:49; Admin Dose 20 MG; Start 10/02/17 at 09:00 Ciprofloxacin/ Dextrose (Cipro Ivpb) 200 ml @ 200 mls/hr Q12 IVPB Last administered on 10/13/17 09:46; Admin Dose 200 MLS/HR; Start 10/01/17 at 21:00 IV Flush (NS 10 ml) 10 ml PRN PRN IV IV PROTOCOL; Start 10/02/17 at 17:30 Ascorbic Acid (Vitamin C) 500 mg BID PO Last administered on 10/13/17 09:49; Admin Dose 500 MG; Start 10/04/17 at 21:00 Multivitamins Therapeutic (Theragran) 1 tab DAILY PO Last administered on 09:46; Admin Dose 1 TAB; Start 10/05/17 at 09:00 Metoprolol Tartrate (Lopressor) 12.5 mg BID PO Last administered on 10/12/17 21:34; Admin Dose 12.5 MG; Start 10/05/17 at 21:00 Acetaminophen (Tylenol Tab) 650 mg Q6H PRN PO PAIN AND OR ELEVATED TEMP Last administered on 10/09/17 21:11; Admin Dose 650 MG; Start 10/06/17 at 20:30 Ferrous Gluconate (Fergon) 325 mg BID PO Last administered on 10/13/17 09:59; Admin Dose 325 MG; Start 10/07/17 at 21:00 Cholecalciferol (Vitamin D) 2,000 unit DAILY PO Last administered on 10/13/17 09:46; Admin Dose 2,000 UNIT; Start 10/07/17 at 12:30 Apixaban (Eliquis) 10 mg BID PO Last administered on 10/13/17 09:47; Admin Dose 10 MG; Start 10/10/17 at 21:00; Stop 10/17/17 at 20:59 Apixaban (Eliquis) 5 mg BID PO ; Start 10/17/17 at 09:00 Zolpidem Tartrate 10 mg 10 mg HS PRN PO INSOMNIA Last administered on 21:33; Admin Dose 10 MG; Start 10/11/17 at 23:00 Vancomycin HCl (Vancocin) 100 ml @ 100 mls/hr Q12H IVPB ; Start 10/13/17 at 17: 00 CAYDEN ROSE Oct 13, 2017 11:08
--- NOTE | 2017-10-13 13:48 | CONS ---
Date/Time of Note Date/Time of Note DATE: 10/13/17 TIME: 13:46 Assessment/Plan Assessment/Plan Chief Complaint/Hosp Course SUBJECTIVE: No events overnight. Looks comfortable, no fevers MICROBIOLOGY: Right leg culture growing Strep pyogenes Corynebacterium species and Pseudomonas aeruginosa. Left buttock wound culture growing Strep pyogenes. Blood culture had been negative. ANTIMICROBIALS: 1. IV vancomycin. 2. Ciprofloxacin. PHYSICAL EXAMINATION: GENERAL: This is a fragile, well-developed, elderly woman who is awake, in no distress. HEENT: Head atraumatic, normocephalic. Sclerae anicteric. Buccal mucosa dry. NECK: Supple. CHEST: Rise symmetrical. Breath sounds diminished to bases. HEART: S1, S2. ABDOMEN: Soft, bowel tones present. EXTREMITIES: Without cyanosis. Bilateral lower extremities: Chronic wounds are more on the right. Left leg with an area of fluctuance below knee. ASSESSMENT: 1. Status post sepsis with fevers, tachycardia and encephalopathy. 2. Multiple infected wounds, questionable left leg abscess==> looks better. 3. Chronic obstructive pulmonary disease. 4. Cachexia. 5. History of IV drug abuse. 6. RLE chronic wound s/p i&d 10/09/17 PLAN: The patient remains stable, continue abx, local wound care per podiatry rec-s, anticipate dc on oral Cipro when cleared by podiatry [facility] staff Problems: Consultation Date/Type/Reason Admit Date/Time Sep 28, 2017 at 18:48 Type of Consultation: ID Referring Provider: IMER MARTINEZ Exam/Review of Systems Vital Signs Vitals Vital Signs Date Time Temp Pulse Resp B/P Pulse Ox O2 Delivery O2 Flow Rate FiO2 10/13/17 08:31 97.8 71 12 103/ 100 10/09/17 13:15 Room Air Intake and Output 10/12/17 10/12/17 10/13/17 14:59 22:59 06:59 Intake Total 350 ml 1590 ml 1850 ml Balance 350 ml 1590 ml 1850 ml Results Result Diagram: 10/11/17 0550 10/12/17 0744 Results 24 hrs Laboratory Tests Test 10/13/17 03:24 Vancomycin Level Trough 18.4 Medications Medications Current Medications Ondansetron HCl (Zofran Inj) 4 mg Q6H PRN IV NAUSEA AND/OR VOMITING; Start at 20:00 Miscellaneous Information (Pending Santyl Order For Wound Care) This patient martin... PRN PRN XX WOUND CARE; Start 09/29/17 at 16:30 Collagenase (Santyl) 1 applic DAILY TOP Last administered on 10/13/17 09:55; Admin Dose 1 APPLIC; Start 09/30/17 at 09:00 Collagenase (Santyl) 1 applic PRN PRN TOP WOUND CARE; Start 09/29/17 at 17:00 Zinc Sulfate (Zinc Sulfate) 220 mg DAILY PO Last administered on 10/13/17 09: 47; Admin Dose 220 MG; Start 10/01/17 at 09:00 Methadone HCl (Methadone) 40 mg DAILY PO Last administered on 10/13/17 09:54; Admin Dose 40 MG; Start 10/01/17 at 09:00 Famotidine 20 mg 20 mg DAILY PO Last administered on 10/13/17 09:49; Admin Dose 20 MG; Start 10/02/17 at 09:00 Ciprofloxacin/ Dextrose (Cipro Ivpb) 200 ml @ 200 mls/hr Q12 IVPB Last administered on 10/13/17 09:46; Admin Dose 200 MLS/HR; Start 10/01/17 at 21:00 IV Flush (NS 10 ml) 10 ml PRN PRN IV IV PROTOCOL; Start 10/02/17 at 17:30 Ascorbic Acid (Vitamin C) 500 mg BID PO Last administered on 10/13/17 09:49; Admin Dose 500 MG; Start 10/04/17 at 21:00 Multivitamins Therapeutic (Theragran) 1 tab DAILY PO Last administered on 09:46; Admin Dose 1 TAB; Start 10/05/17 at 09:00 Metoprolol Tartrate (Lopressor) 12.5 mg BID PO Last administered on 10/12/17 21:34; Admin Dose 12.5 MG; Start 10/05/17 at 21:00; Status Future Hold Acetaminophen (Tylenol Tab) 650 mg Q6H PRN PO PAIN AND OR ELEVATED TEMP Last administered on 10/09/17 21:11; Admin Dose 650 MG; Start 10/06/17 at 20:30 Ferrous Gluconate (Fergon) 325 mg BID PO Last administered on 10/13/17 09:59; Admin Dose 325 MG; Start 10/07/17 at 21:00 Cholecalciferol (Vitamin D) 2,000 unit DAILY PO Last administered on 10/13/17 09:46; Admin Dose 2,000 UNIT; Start 10/07/17 at 12:30 Apixaban (Eliquis) 10 mg BID PO Last administered on 10/13/17 09:47; Admin Dose 10 MG; Start 10/10/17 at 21:00; Stop 10/17/17 at 20:59 Apixaban (Eliquis) 5 mg BID PO ; Start 10/17/17 at 09:00 Zolpidem Tartrate 10 mg 10 mg HS PRN PO INSOMNIA Last administered on 21:33; Admin Dose 10 MG; Start 10/11/17 at 23:00 Vancomycin HCl (Vancocin) 100 ml @ 100 mls/hr Q12H IVPB ; Start 10/13/17 at 17: 00 TELMA DUBON NP Oct 13, 2017 13:48
[2017-10-13 13:59] VITALS: BP 95/54; RESP 14
[2017-10-13] MEDS ORDERED: LIDOCAINE 1% (MPF) 5 ML VIAL SC ONE (15:30)
[2017-10-13] MEDS: VANCOMYCIN 500MG/NS (PMX) 100 ML IVPB SCH (17:55)
[2017-10-13 19:34] VITALS: BP 91/52; RESP 14
[2017-10-13] MEDS: ZOLPIDEM 5 MG TAB PO PRN (22:02)
--- NOTE | 2017-10-13 23:38 | PN ---
Date/Time of Note Date/Time of Note DATE: 10/13/17 TIME: 23:38 Assessment/Plan Lines/Catheters IV Catheter Type (from Nrs): Peripheral IV Alarcon in Place (from Nrs): No Assessment/Plan Chief Complaint/Hosp Course -Bilateral lower extremity atherosclerosis with right lower extremity ulcer: It seems the patient has some component of atherosclerotic disease; however, the patient does have faint pedal pulses in which my suspicion would be low for having a nonhealing wound as a result of her atherosclerotic disease. Her noninvasive vascular studies did not demonstrate flow limiting infrainguinal stenosis. It seems the patient's noncompliance and not coming to the hospital and receiving medical care may be the main issue of her ulceration that has worsened over the past month. - S/P debridement and Acell application -Do Not remove dressing for 10 days -Left IJ DVT: Continue anticoagulation, her being compliant and coverage by her insurance may be an issue. Recommend shelter case manager evaluation -Will need patient to be cleared and followup at [facility] -Continue with antibiotics. -Discussed with the patient regarding smoking cessation and IV drug abuse cessation -Optimize vascular status (BP meds, diet, nutrition, exercise, sugar control, antiplatelets). -Thank you for allowing me to partake in the care of your patient. Please call with any questions. Problems: Subjective 24 Hr Interval Summary Constitutional: no complaints Exam/Review of Systems Vital Signs Vitals Vital Signs Date Time Temp Pulse Resp B/P Pulse Ox O2 Delivery O2 Flow Rate FiO2 10/14/17 13:19 97.8 90 16 96/55 95 Intake and Output 10/13/17 10/13/17 10/14/17 15:00 23:00 07:00 Intake Total 400 ml 820 ml Output Total 901 ml Balance 400 ml -81 ml Exam Free Text/Dictation GENERAL: Alert and oriented x3. PULMONARY: Clear to auscultation bilaterally. CARDIOVASCULAR: S1, S2 present. ABDOMEN: Soft, nontender, nondistended. Bowel sounds positive. RIGHT LOWER EXTREMITY: Palpable femoral pulse, faint pedal pulse. Motor, sensory intact. Cap refill 3 seconds. lower leg dressing intact and dry LEFT LOWER EXTREMITY: Palpable femoral pulse, faint pedal pulse. Motor, sensory intact. Cap refill 3 seconds. Results Result Diagram: 10/11/17 0550 10/14/17 0548 OSEAS MARTINEZ MD Oct 13, 2017 23:38
[2017-10-14 02:27] VITALS: BP 95/58; RESP 14
[2017-10-14] MEDS: VANCOMYCIN 500MG/NS (PMX) 100 ML IVPB SCH ×2 (05:13→18:00)
[2017-10-14 06:48] LABS: CALCIUM 9.4 mg/dl (8.4-10.2); CREATININE 0.89 mg/dl (0.44-1.00); MAGNESIUM 1.5 mg/dl (1.7-2.5); POTASSIUM 4.3 mmol/L (3.5-5.1)
[2017-10-14 07:34] VITALS: BP 94/55; RESP 18
[2017-10-14] MEDS: CIPROFLOXACIN 400MG/D5W 200 ML IVPB SCH ×2 (08:49→21:01)
[2017-10-14] MEDS: MULTIVITAMINS THERAPEUTIC TAB PO SCH (08:51)
[2017-10-14] MEDS: ASCORBIC ACID 500 MG TAB PO SCH ×2 (08:51→21:02)
[2017-10-14] MEDS: METHADONE 10 MG TAB PO SCH (08:51)
[2017-10-14] MEDS: FERROUS GLUCONATE (EC) 325 MG TAB PO SCH ×2 (08:51→21:02)
[2017-10-14] MEDS: CHOLECALCIFEROL 2,000 UNIT CAP PO SCH (08:52)
[2017-10-14] MEDS: FAMOTIDINE 20 MG TAB PO SCH (08:52)
[2017-10-14] MEDS: ZINC SULFATE 220 MG CAP PO SCH (08:52)
[2017-10-14] MEDS: APIXABAN 5 MG TABLET PO SCH ×2 (08:53→21:02)
[2017-10-14] MEDS: COLLAGENASE 30 GM TUBE TOP SCH (08:56)
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
[2017-10-14] MEDS ORDERED: MAGNESIUM SULFATE 2 GM/50 ML 50 ML IVPB ONE (10:30)
--- NOTE | 2017-10-14 10:41 | RADRPT ---
PROCEDURE: Ultrasound guidance for placement of needle in left upper extremity vein. CLINICAL INDICATION: Venous access. TECHNIQUE: Limited sonography of the left upper extremity was performed. Ultrasound images were recorded and s tored in the patient's medical record. COMPARISON: None. FINDINGS: The ultrasound images demonstrate a patent left upper extremity vein. The PICC line was inserted by the PICC line nurse. IMPRESSION: 1. Ultrasound guidance for a needle placement in a left upper extremity vein. 2. The left upper extremity vein is patent. RPTAT: QQ .Candido Awad MD, MD Date Time Electronically viewed and signed by .Candido Awad MD, MD on 10/14/2017 10:41 .R/
--- NOTE | 2017-10-14 10:41 | RADRPT ---
PROCEDURE: XR Chest. CLINICAL INDICATION: Check PICC line position. TECHNIQUE: Single frontal view. COMPARISON: 10/02/2017. FINDINGS: There is a left arm PICC line with the tip in the lower superior vena cava. The previously noted ri ght arm PICC line has been removed. The lungs are clear. The heart size is normal. There is no pleural effusion or pneumothorax. There is thoracic scoliosis convex right and lumbar scoliosis convex left. IMPRESSION: 1. Left arm PICC line tip in satisfactory position. 2. Right arm PICC line removed. 3. Clear lungs. 4. Thoracic and lumbar scoliosis. RPTAT: QQ .Candido Awad MD, MD Date Time Electronically viewed and signed by .Candido Awad MD, MD on 10/14/2017 10:40 .R/
--- NOTE | 2017-10-14 12:03 | CONS ---
Date/Time of Note Date/Time of Note DATE: 10/14/17 TIME: 11:59 Assessment/Plan Assessment/Plan Additional Assessment/Plan 1. s/p Debridement of LLE ucler 2. Hypertension 3. Left lower extremity deep venous thrombosis. 4. Anemia. 5. Substance abuse with amphetamines 6. NICM with EF 45% 7. Anemia BP borderline Replete Magnesium Continue Antibiotics Continue Eliquis Continue Pepcid Continue Methadone Consultation Date/Type/Reason Admit Date/Time Sep 28, 2017 at 18:48 Social History Smoking Status: Current every day smoker Exam/Review of Systems Vital Signs Vitals Vital Signs Date Time Temp Pulse Resp B/P Pulse Ox O2 Delivery O2 Flow Rate FiO2 10/14/17 07:34 98.4 86 18 94/55 96 Intake and Output 10/13/17 10/13/17 10/14/17 15:00 23:00 07:00 Intake Total 400 ml 820 ml Output Total 901 ml Balance 400 ml -81 ml Exam Constitutional: alert Head: atraumatic, normocephalic Neck: non-tender, supple Respiratory: clear to auscultation Cardiovascular: regular rate and rhythm (no m/r/g) Gastrointestinal: nl liver, spleen, non-tender, soft Extremities: other (LLE s/p debridement) Results Result Diagram: 10/11/17 0550 10/14/17 0548 Results 24 hrs Laboratory Tests Test 10/14/17 05:48 Sodium Level 136 Potassium Level 4.3 Chloride Level 99 Carbon Dioxide Level 29 Anion Gap 12 Blood Urea Nitrogen 28 H Creatinine 0.89 Glucose Level 89 Calcium Level 9.4 Magnesium Level 1.5 L Medications Medications Current Medications Ondansetron HCl (Zofran Inj) 4 mg Q6H PRN IV NAUSEA AND/OR VOMITING; Start at 20:00 Miscellaneous Information (Pending Santyl Order For Wound Care) This patient martin... PRN PRN XX WOUND CARE; Start 09/29/17 at 16:30 Collagenase (Santyl) 1 applic DAILY TOP Last administered on 10/14/17t 08:56; Admin Dose 1 APPLIC; Start 09/30/17 at 09:00 Collagenase (Santyl) 1 applic PRN PRN TOP WOUND CARE; Start 09/29/17 at 17:00 Zinc Sulfate (Zinc Sulfate) 220 mg DAILY PO Last administered on 10/14/17 08: 52; Admin Dose 220 MG; Start 10/01/17 at 09:00 Methadone HCl (Methadone) 40 mg DAILY PO Last administered on 10/14/17 08:51; Admin Dose 40 MG; Start 10/01/17 at 09:00 Famotidine 20 mg 20 mg DAILY PO Last administered on 10/14/17 08:52; Admin Dose 20 MG; Start 10/02/17 at 09:00 Ciprofloxacin/ Dextrose (Cipro Ivpb) 200 ml @ 200 mls/hr Q12 IVPB Last administered on 10/14/17 08:49; Admin Dose 200 MLS/HR; Start 10/01/17 at 21:00 IV Flush (NS 10 ml) 10 ml PRN PRN IV IV PROTOCOL; Start 10/02/17 at 17:30 Ascorbic Acid (Vitamin C) 500 mg BID PO Last administered on 10/14/17 08:51; Admin Dose 500 MG; Start 10/04/17 at 21:00 Multivitamins Therapeutic (Theragran) 1 tab DAILY PO Last administered on 08:51; Admin Dose 1 TAB; Start 10/05/17 at 09:00 Metoprolol Tartrate (Lopressor) 12.5 mg BID PO Last administered on 10/12/17 21:34; Admin Dose 12.5 MG; Start 10/05/17 at 21:00; Status Future Hold Acetaminophen (Tylenol Tab) 650 mg Q6H PRN PO PAIN AND OR ELEVATED TEMP Last administered on 10/09/17 21:11; Admin Dose 650 MG; Start 10/06/17 at 20:30 Ferrous Gluconate (Fergon) 325 mg BID PO Last administered on 10/14/17 08:51; Admin Dose 325 MG; Start 10/07/17 at 21:00 Cholecalciferol (Vitamin D) 2,000 unit DAILY PO Last administered on 10/14/17 08:52; Admin Dose 2,000 UNIT; Start 10/07/17 at 12:30 Apixaban (Eliquis) 10 mg BID PO Last administered on 10/14/17 08:53; Admin Dose 10 MG; Start 10/10/17 at 21:00; Stop 10/17/17 at 20:59 Apixaban (Eliquis) 5 mg BID PO ; Start 10/17/17 at 09:00 Zolpidem Tartrate 10 mg 10 mg HS PRN PO INSOMNIA Last administered on 22:02; Admin Dose 10 MG; Start 10/11/17 at 23:00 Vancomycin HCl (Vancocin) 100 ml @ 100 mls/hr Q12H IVPB Last administered on 10/14/17 05:13; Admin Dose 100 MLS/HR; Start 10/13/17 at 17:00 Magnesium Chloride 64 mg 64 mg BID PO ; Start 10/14/17 at 21:00 Magnesium Sulfate (Magnesium Sulfate 2 Gm/50 ml) 50 ml @ 25 mls/hr ONCE ONCE IVPB Last administered on 10/14/17 11:48; Admin Dose 25 MLS/HR; Start at 10:30; Stop 10/14/17 at 12:29 IV Flush (NS 10 ml) 10 ml PRN PRN IV IV PROTOCOL; Start 10/14/17 at 11:00 BIRGIT REY M.D. Oct 14, 2017 12:03
[2017-10-14 13:19] VITALS: BP 96/55; RESP 16
--- NOTE | 2017-10-14 17:12 | CONS ---
Date/Time of Note Date/Time of Note DATE: 10/14/17 TIME: 17:09 Consultation Date/Type/Reason Admit Date/Time Sep 28, 2017 at 18:48 Initial Consult Date SUBJECTIVE: Pt is awake, alert. No events overnight. Comfortably resting in bed. Denies fevers. VS: 96/55 P:90 R:16 T:97.8 SO2:95% LABS: Reviewed. BUN-28 Cr-0.89 MICROBIOLOGY: Right leg culture growing Strep pyogenes Corynebacterium species and Pseudomonas aeruginosa. Left buttock wound culture growing Strep pyogenes. Blood culture had been negative. ANTIMICROBIALS: 1. IV vancomycin. 2. Ciprofloxacin. PHYSICAL EXAMINATION: GENERAL: This is a fragile, well-developed, elderly woman who is awake, in no distress. HEENT: Head atraumatic, normocephalic. Sclerae anicteric. Buccal mucosa dry. NECK: Supple. CHEST: Rise symmetrical. Breath sounds diminished to bases. HEART: S1, S2. ABDOMEN: Soft, bowel tones present. EXTREMITIES: Without cyanosis. Bilateral lower extremities: Chronic wounds are more on the right. Left leg with an area of fluctuance below knee. ASSESSMENT: 1. Status post sepsis with fevers, tachycardia and encephalopathy. 2. Multiple infected wounds, questionable left leg abscess==> looks better. 3. Chronic obstructive pulmonary disease. 4. Cachexia. 5. History of IV drug abuse. 6. RLE chronic wound s/p i&d 10/09/17 PLAN: The patient remains stable. Continue current abx, and local wound care per podiatry rec-s. Anticipate dc on oral Cipro when cleared by podiatry Type of Consultation: ID Referring Provider: IMER MARTINEZ Exam/Review of Systems Vital Signs Vitals Vital Signs Date Time Temp Pulse Resp B/P Pulse Ox O2 Delivery O2 Flow Rate FiO2 10/14/17 13:19 97.8 90 16 96/55 95 Intake and Output 10/13/17 10/13/17 10/14/17 15:00 23:00 07:00 Intake Total 400 ml 820 ml Output Total 901 ml Balance 400 ml -81 ml Results Result Diagram: 10/11/17 0550 10/14/17 0548 Results 24 hrs Laboratory Tests Test 10/14/17 05:48 Sodium Level 136 Potassium Level 4.3 Chloride Level 99 Carbon Dioxide Level 29 Anion Gap 12 Blood Urea Nitrogen 28 H Creatinine 0.89 Glucose Level 89 Calcium Level 9.4 Magnesium Level 1.5 L Medications Medications Current Medications Ondansetron HCl (Zofran Inj) 4 mg Q6H PRN IV NAUSEA AND/OR VOMITING; Start at 20:00 Miscellaneous Information (Pending Santyl Order For Wound Care) This patient martin... PRN PRN XX WOUND CARE; Start 09/29/17 at 16:30 Collagenase (Santyl) 1 applic DAILY TOP Last administered on 10/14/17 08:56; Admin Dose 1 APPLIC; Start 09/30/17 at 09:00 Collagenase (Santyl) 1 applic PRN PRN TOP WOUND CARE; Start 09/29/17 at 17:00 Zinc Sulfate (Zinc Sulfate) 220 mg DAILY PO Last administered on 10/14/17 08: 52; Admin Dose 220 MG; Start 10/01/17 at 09:00 Methadone HCl (Methadone) 40 mg DAILY PO Last administered on 10/14/17 08:51; Admin Dose 40 MG; Start 10/01/17 at 09:00 Famotidine 20 mg 20 mg DAILY PO Last administered on 10/14/17 08:52; Admin Dose 20 MG; Start 10/02/17 at 09:00 Ciprofloxacin/ Dextrose (Cipro Ivpb) 200 ml @ 200 mls/hr Q12 IVPB Last administered on 10/14/17 08:49; Admin Dose 200 MLS/HR; Start 10/01/17 at 21:00 IV Flush (NS 10 ml) 10 ml PRN PRN IV IV PROTOCOL; Start 10/02/17 at 17:30 Ascorbic Acid (Vitamin C) 500 mg BID PO Last administered on 10/14/17 08:51; Admin Dose 500 MG; Start 10/04/17 at 21:00 Multivitamins Therapeutic (Theragran) 1 tab DAILY PO Last administered on 08:51; Admin Dose 1 TAB; Start 10/05/17 at 09:00 Metoprolol Tartrate (Lopressor) 12.5 mg BID PO Last administered on 10/12/17 21:34; Admin Dose 12.5 MG; Start 10/05/17 at 21:00; Status Future Hold Acetaminophen (Tylenol Tab) 650 mg Q6H PRN PO PAIN AND OR ELEVATED TEMP Last administered on 10/09/17 21:11; Admin Dose 650 MG; Start 10/06/17 at 20:30 Ferrous Gluconate (Fergon) 325 mg BID PO Last administered on 10/14/17 08:51; Admin Dose 325 MG; Start 10/07/17 at 21:00 Cholecalciferol (Vitamin D) 2,000 unit DAILY PO Last administered on 10/14/17 08:52; Admin Dose 2,000 UNIT; Start 10/07/17 at 12:30 Apixaban (Eliquis) 10 mg BID PO Last administered on 10/14/17 08:53; Admin Dose 10 MG; Start 10/10/17 at 21:00; Stop 10/17/17 at 20:59 Apixaban (Eliquis) 5 mg BID PO ; Start 10/17/17 at 09:00 Zolpidem Tartrate 10 mg 10 mg HS PRN PO INSOMNIA Last administered on 22:02; Admin Dose 10 MG; Start 10/11/17 at 23:00 Vancomycin HCl (Vancocin) 100 ml @ 100 mls/hr Q12H IVPB Last administered on 10/14/17 05:13; Admin Dose 100 MLS/HR; Start 10/13/17 at 17:00 Magnesium Chloride (Mag 64) 64 mg BID PO ; Start 10/14/17 at 21:00 IV Flush (NS 10 ml) 10 ml PRN PRN IV IV PROTOCOL; Start 10/14/17 at 11:00 Miscellaneous Information (*Rx Drug Level Order Reminder*) VANCOMYCIN TROUGH ON 10/06... ONCE ONCE XX ; Start 10/15/17 at 16:00; Stop 10/15/17 at 16:01 IAM VARGAS Oct 14, 2017 17:12
[2017-10-14] MEDS: ZOLPIDEM 5 MG TAB PO PRN (21:02)
[2017-10-14] MEDS: MAGNESIUM CHLORIDE (SR) 64 MG TAB PO SCH (21:02)
[2017-10-14 21:48] VITALS: BP 106/61; RESP 16
[2017-10-15 03:54] VITALS: BP 97/65; RESP 16
[2017-10-15] MEDS: VANCOMYCIN 500MG/NS (PMX) 100 ML IVPB SCH ×2 (05:19→17:01)
[2017-10-15 07:42] VITALS: BP 102/60; RESP 22
[2017-10-15] MEDS: CIPROFLOXACIN 400MG/D5W 200 ML IVPB SCH ×2 (09:36→20:19)
[2017-10-15] MEDS: ASCORBIC ACID 500 MG TAB PO SCH ×2 (09:36→20:19)
[2017-10-15] MEDS: ZINC SULFATE 220 MG CAP PO SCH (09:37)
[2017-10-15] MEDS: FAMOTIDINE 20 MG TAB PO SCH (09:37)
[2017-10-15] MEDS: MULTIVITAMINS THERAPEUTIC TAB PO SCH (09:37)
[2017-10-15] MEDS: FERROUS GLUCONATE (EC) 325 MG TAB PO SCH ×2 (09:37→20:19)
[2017-10-15] MEDS: APIXABAN 5 MG TABLET PO SCH ×2 (09:37→20:19)
[2017-10-15] MEDS: CHOLECALCIFEROL 2,000 UNIT CAP PO SCH (09:38)
[2017-10-15] MEDS: METHADONE 10 MG TAB PO SCH (09:41)
[2017-10-15] MEDS: MAGNESIUM CHLORIDE (SR) 64 MG TAB PO SCH ×2 (09:44→20:19)
[2017-10-15] MEDS: COLLAGENASE 30 GM TUBE TOP SCH (09:44)
--- NOTE | 2017-10-15 10:45 | CONS ---
Date/Time of Note Date/Time of Note DATE: 10/15/17 TIME: 10:42 Assessment/Plan Assessment/Plan Additional Assessment/Plan 1. s/p Debridement of LLE ucler 2. Hypertension 3. Left lower extremity deep venous thrombosis. 4. Anemia. 5. Substance abuse with amphetamines 6. NICM with EF 45% 7. Anemia hemodynamically stable Continue Antibiotics Continue Eliquis Continue Pepcid AVTAR-I/ARBs not started due to hypotension Continue Methadone Consultation Date/Type/Reason Admit Date/Time Sep 28, 2017 at 18:48 Initial Consult Date 10/03/17 Type of Consultation: ID Referring Provider: IMER MARTINEZ Exam/Review of Systems Vital Signs Vitals Vital Signs Date Time Temp Pulse Resp B/P Pulse Ox O2 Delivery O2 Flow Rate FiO2 10/15/17 07:42 98.9 60 22 102/60 94 Intake and Output 10/14/17 10/14/17 10/15/17 15:00 23:00 07:00 Intake Total 350 ml 1830 ml 820 ml Output Total 1100 ml 550 ml Balance 350 ml 730 ml 270 ml Exam Constitutional: alert Head: atraumatic, normocephalic Neck: non-tender, supple Respiratory: clear to auscultation Cardiovascular: regular rate and rhythm (no m/r/g) Gastrointestinal: nl liver, spleen, non-tender, soft Extremities: LLE s/p debridement in dressing Results Result Diagram: 10/11/17 0550 10/14/17 0548 Medications Medications Current Medications Ondansetron HCl (Zofran Inj) 4 mg Q6H PRN IV NAUSEA AND/OR VOMITING; Start at 20:00 Miscellaneous Information (Pending Santyl Order For Wound Care) This patient martin... PRN PRN XX WOUND CARE; Start 09/29/17 at 16:30 Collagenase (Santyl) 1 applic DAILY TOP Last administered on 10/15/17 09:44; Admin Dose 1 APPLIC; Start 09/30/17 at 09:00 Collagenase (Santyl) 1 applic PRN PRN TOP WOUND CARE; Start 09/29/17 at 17:00 Zinc Sulfate (Zinc Sulfate) 220 mg DAILY PO Last administered on 10/15/17 09: 37; Admin Dose 220 MG; Start 10/01/17 at 09:00 Methadone HCl (Methadone) 40 mg DAILY PO Last administered on 10/15/17 09:41 ; Admin Dose 40 MG; Start 10/01/17 at 09:00 Famotidine 20 mg 20 mg DAILY PO Last administered on 10/15/17 09:37; Admin Dose 20 MG; Start 10/02/17 at 09:00 Ciprofloxacin/ Dextrose (Cipro Ivpb) 200 ml @ 200 mls/hr Q12 IVPB Last administered on 10/15/17 09:36; Admin Dose 200 MLS/HR; Start 10/01/17 at 21: 00 IV Flush (NS 10 ml) 10 ml PRN PRN IV IV PROTOCOL; Start 10/02/17 at 17:30 Ascorbic Acid (Vitamin C) 500 mg BID PO Last administered on 10/15/17 09:36; Admin Dose 500 MG; Start 10/04/17 at 21:00 Multivitamins Therapeutic (Theragran) 1 tab DAILY PO Last administered on 10/15 09:37; Admin Dose 1 TAB; Start 10/05/17 at 09:00 Metoprolol Tartrate (Lopressor) 12.5 mg BID PO Last administered on 10/12/17 21:34; Admin Dose 12.5 MG; Start 10/05/17 at 21:00; Status Future Hold Acetaminophen (Tylenol Tab) 650 mg Q6H PRN PO PAIN AND OR ELEVATED TEMP Last administered on 10/09/17 21:11; Admin Dose 650 MG; Start 10/06/17 at 20:30 Ferrous Gluconate (Fergon) 325 mg BID PO Last administered on 10/15/17 09:37 ; Admin Dose 325 MG; Start 10/07/17 at 21:00 Cholecalciferol (Vitamin D) 2,000 unit DAILY PO Last administered on 09:38; Admin Dose 2,000 UNIT; Start 10/07/17 at 12:30 Apixaban (Eliquis) 10 mg BID PO Last administered on 10/15/17 09:37; Admin Dose 10 MG; Start 10/10/17 at 21:00; Stop 10/17/17 at 20:59 Apixaban (Eliquis) 5 mg BID PO ; Start 10/17/17 at 09:00 Zolpidem Tartrate 10 mg 10 mg HS PRN PO INSOMNIA Last administered on 21:02; Admin Dose 10 MG; Start 10/11/17 at 23:00 Vancomycin HCl (Vancocin) 100 ml @ 100 mls/hr Q12H IVPB Last administered on 10/15/17 05:19; Admin Dose 100 MLS/HR; Start 10/13/17 at 17:00 Magnesium Chloride (Mag 64) 64 mg BID PO Last administered on 10/15/17 09:44 ; Admin Dose 64 MG; Start 10/14/17 at 21:00 IV Flush (NS 10 ml) 10 ml PRN PRN IV IV PROTOCOL Last administered on 21:02; Admin Dose 10 ML; Start 10/14/17 at 11:00 Miscellaneous Information (*Rx Drug Level Order Reminder*) VANCOMYCIN TROUGH ON 10/06... ONCE ONCE XX ; Start 10/15/17 at 16:00; Stop 10/15/17 at 16:01 BIRGIT REY M.D. Oct 15, 2017 10:45
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
[2017-10-15 19:51] VITALS: BP 96/57; RESP 18
[2017-10-16 02:03] VITALS: BP 90/59; RESP 16
[2017-10-16] MEDS ORDERED: VANCOMYCIN 650 MG in DEXTROSE 5% 150 ML IVPB SCH (05:00)
[2017-10-16 06:09] LABS: CALCIUM 9.2 mg/dl (8.4-10.2); CREATININE 0.72 mg/dl (0.44-1.00); MAGNESIUM 1.5 mg/dl (1.7-2.5)
[2017-10-16 07:42] VITALS: BP 103/56; RESP 16
[2017-10-16] MEDS: ZINC SULFATE 220 MG CAP PO SCH (08:56)
[2017-10-16] MEDS: CHOLECALCIFEROL 2,000 UNIT CAP PO SCH (08:56)
[2017-10-16] MEDS: FERROUS GLUCONATE (EC) 325 MG TAB PO SCH ×2 (08:56→22:26)
[2017-10-16] MEDS: ASCORBIC ACID 500 MG TAB PO SCH ×2 (08:57→22:26)
[2017-10-16] MEDS: APIXABAN 5 MG TABLET PO SCH ×2 (08:57→22:26)
[2017-10-16] MEDS: MULTIVITAMINS THERAPEUTIC TAB PO SCH (08:57)
[2017-10-16] MEDS: METHADONE 10 MG TAB PO SCH (08:57)
[2017-10-16] MEDS: FAMOTIDINE 20 MG TAB PO SCH (08:57)
[2017-10-16] MEDS: MAGNESIUM CHLORIDE (SR) 64 MG TAB PO SCH ×3 (08:57→22:25)
[2017-10-16] MEDS: CIPROFLOXACIN 400MG/D5W 200 ML IVPB SCH (08:57)
[2017-10-16] MEDS: COLLAGENASE 30 GM TUBE TOP SCH (09:00)
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
--- NOTE | 2017-10-16 11:10 | CONS ---
Date/Time of Note Date/Time of Note DATE: 10/16/17 TIME: 11:08 Assessment/Plan Assessment/Plan Chief Complaint/Hosp Course IMPRESSION: 1. Preoperative evaluation prior to placement of a peritoneal dialysis catheter.-negative trop x 3/EF 45-50% by echo/no sig valve lesions. Now post-op s/p Debridement of LE wound 2. Hypertension-borderline hypotension 3. Left lower extremity deep venous thrombosis. 4. Anemia. 5. Prior failed chest wall catheters. 6. cardiomyopathy-EF 45%-? due to substance abuse with amphetamines Recc: -continue anticoagulation now with eliquis -Continue local wound care -Continue abx's -Hold BB given marginal BP -Local wound care Problems: Consultation Date/Type/Reason Admit Date/Time Sep 28, 2017 at 18:48 Initial Consult Date 10/04/2017 Type of Consultation: cardiology Reason for Consultation Pre-op/HTN Referring Provider: IMER MARTINEZ Exam/Review of Systems Vital Signs Vitals Vital Signs Date Time Temp Pulse Resp B/P Pulse Ox O2 Delivery O2 Flow Rate FiO2 10/16/17 07:42 98.0 69 16 103/56 98 Intake and Output 10/15/17 10/15/17 10/16/17 15:00 23:00 07:00 Intake Total 200 ml 1620 ml 800 ml Output Total 800 ml Balance 200 ml 820 ml 800 ml Exam Review of Systems: CONSTITUTIONAL: No fevers, chills. PULMONARY: No sob CARDIOVASCULAR: No chest pain/palpitations GASTROINTESTINAL: No nausea/vomiting. GENITOURINARY: No hematuria/dysuria. MUSCULOSKELETAL: No myagias/arthalgias. PSYCHIATRIC: The patient denies depression. NEUROLOGIC: No weakness Constitutional: alert, oriented Psych: no complaints Head: normocephalic ENMT: mucosa pink and moist Neck: jvd (9 cm water), supple Respiratory: clear to auscultation Cardiovascular: regular rate and rhythm Gastrointestinal: non-tender, soft Musculoskeletal: muscle tone (normal) Extremities: other (RLE covered by dressing) Neurological: other Results Result Diagram: 10/16/17 0453 Results 24 hrs Laboratory Tests Test 10/15/17 11:32 10/15/17 15:43 10/16/17 04:53 Magnesium Level 1.5 L 1.5 L Vancomycin Level Trough 9.4 L Sodium Level 136 Potassium Level 4.0 Chloride Level 99 Carbon Dioxide Level 31 Anion Gap 10 Blood Urea Nitrogen 19 # Creatinine 0.72 Glucose Level 109 Calcium Level 9.2 Medications Medications Current Medications Ondansetron HCl (Zofran Inj) 4 mg Q6H PRN IV NAUSEA AND/OR VOMITING; Start at 20:00 Miscellaneous Information (Pending Santyl Order For Wound Care) This patient martin... PRN PRN XX WOUND CARE; Start 09/29/17 at 16:30 Collagenase (Santyl) 1 applic DAILY TOP Last administered on 10/15/17 09:44; Admin Dose 1 APPLIC; Start 09/30/17 at 09:00 Collagenase (Santyl) 1 applic PRN PRN TOP WOUND CARE; Start 09/29/17 at 17:00 Zinc Sulfate (Zinc Sulfate) 220 mg DAILY PO Last administered on 10/16/17 08: 56; Admin Dose 220 MG; Start 10/01/17 at 09:00 Methadone HCl (Methadone) 40 mg DAILY PO Last administered on 10/16/17 08:57 ; Admin Dose 40 MG; Start 10/01/17 at 09:00 Famotidine 20 mg 20 mg DAILY PO Last administered on 10/16/17 08:57; Admin Dose 20 MG; Start 10/02/17 at 09:00 Ciprofloxacin/ Dextrose (Cipro Ivpb) 200 ml @ 200 mls/hr Q12 IVPB Last administered on 10/16/17 08:57; Admin Dose 200 MLS/HR; Start 10/01/17 at 21: 00 IV Flush (NS 10 ml) 10 ml PRN PRN IV IV PROTOCOL; Start 10/02/17 at 17:30 Ascorbic Acid (Vitamin C) 500 mg BID PO Last administered on 10/16/17 08:57; Admin Dose 500 MG; Start 10/04/17 at 21:00 Multivitamins Therapeutic (Theragran) 1 tab DAILY PO Last administered on 10/16 08:57; Admin Dose 1 TAB; Start 10/05/17 at 09:00 Metoprolol Tartrate (Lopressor) 12.5 mg BID PO Last administered on 10/12/17 21:34; Admin Dose 12.5 MG; Start 10/05/17 at 21:00; Status Future Hold Acetaminophen (Tylenol Tab) 650 mg Q6H PRN PO PAIN AND OR ELEVATED TEMP Last administered on 10/09/17 21:11; Admin Dose 650 MG; Start 10/06/17 at 20:30 Ferrous Gluconate (Fergon) 325 mg BID PO Last administered on 10/16/17 08:56 ; Admin Dose 325 MG; Start 10/07/17 at 21:00 Cholecalciferol (Vitamin D) 2,000 unit DAILY PO Last administered on 08:56; Admin Dose 2,000 UNIT; Start 10/07/17 at 12:30 Apixaban (Eliquis) 10 mg BID PO Last administered on 10/16/17 08:57; Admin Dose 10 MG; Start 10/10/17 at 21:00; Stop 10/17/17 at 20:59 Apixaban (Eliquis) 5 mg BID PO ; Start 10/17/17 at 09:00 Zolpidem Tartrate (Ambien) 10 mg HS PRN PO INSOMNIA Last administered on 21:02; Admin Dose 10 MG; Start 10/11/17 at 23:00 Magnesium Chloride (Mag 64) 64 mg BID PO Last administered on 10/16/17 08:57 ; Admin Dose 64 MG; Start 10/14/17 at 21:00 IV Flush 10 ml 10 ml PRN PRN IV IV PROTOCOL Last administered on 10/14/17 21: 02; Admin Dose 10 ML; Start 10/14/17 at 11:00 Vancomycin HCl/ Dextrose/Water (Vancocin/D5W) 150 ml @ 75 mls/hr Q12H IVPB Last administered on 10/16/17 05:22; Admin Dose 75 MLS/HR; Start 10/16/17 at 05:00 CAYDEN ROSE Oct 16, 2017 11:10
[2017-10-16] MEDS ORDERED: MAGNESIUM SULFATE 4 GM/100 ML 100 ML IVPB SCH (13:00)
[2017-10-16 13:25] VITALS: BP 98/63; RESP 20
--- NOTE | 2017-10-16 14:06 | CONS ---
Date/Time of Note Date/Time of Note DATE: 10/16/17 TIME: 14:05 Assessment/Plan Assessment/Plan Chief Complaint/Hosp Course SUBJECTIVE: No events overnight. Looks comfortable, no fevers MICROBIOLOGY: Right leg culture growing Strep pyogenes Corynebacterium species and Pseudomonas aeruginosa. Left buttock wound culture growing Strep pyogenes. Blood culture had been negative. ANTIMICROBIALS: 1. IV vancomycin. 2. Ciprofloxacin. PHYSICAL EXAMINATION: GENERAL: This is a fragile, well-developed, elderly woman who is awake, in no distress. HEENT: Head atraumatic, normocephalic. Sclerae anicteric. Buccal mucosa dry. NECK: Supple. CHEST: Rise symmetrical. Breath sounds diminished to bases. HEART: S1, S2. ABDOMEN: Soft, bowel tones present. EXTREMITIES: Without cyanosis. Bilateral lower extremities: Chronic wounds are more on the right. Left leg with an area of fluctuance below knee. ASSESSMENT: 1. Status post sepsis with fevers, tachycardia and encephalopathy. 2. Multiple infected wounds, questionable left leg abscess==> looks better. 3. Chronic obstructive pulmonary disease. 4. Cachexia. 5. History of IV drug abuse. 6. RLE chronic wound s/p i&d 10/09/17 PLAN: The patient remains stable, continue local wound care per podiatry rec-s , anticipate dc on oral Cipro when cleared by podiatrymo staff Problems: Consultation Date/Type/Reason Admit Date/Time Sep 28, 2017 at 18:48 Type of Consultation: id Referring Provider: IMER MARTINEZ Exam/Review of Systems Vital Signs Vitals Vital Signs Date Time Temp Pulse Resp B/P Pulse Ox O2 Delivery O2 Flow Rate FiO2 10/16/17 13:25 98.9 79 20 98/63 96 Intake and Output 10/15/17 10/15/17 10/16/17 15:00 23:00 07:00 Intake Total 200 ml 1620 ml 800 ml Output Total 800 ml Balance 200 ml 820 ml 800 ml Results Result Diagram: 10/16/17 0453 Results 24 hrs Laboratory Tests Test 10/15/17 15:43 10/16/17 04:53 Vancomycin Level Trough 9.4 L Sodium Level 136 Potassium Level 4.0 Chloride Level 99 Carbon Dioxide Level 31 Anion Gap 10 Blood Urea Nitrogen 19 # Creatinine 0.72 Glucose Level 109 Calcium Level 9.2 Magnesium Level 1.5 L Medications Medications Current Medications Ondansetron HCl (Zofran Inj) 4 mg Q6H PRN IV NAUSEA AND/OR VOMITING; Start at 20:00 Miscellaneous Information (Pending Santyl Order For Wound Care) This patient martin... PRN PRN XX WOUND CARE; Start 09/29/17 at 16:30 Collagenase (Santyl) 1 applic DAILY TOP Last administered on 10/15/17 09:44; Admin Dose 1 APPLIC; Start 09/30/17 at 09:00 Collagenase (Santyl) 1 applic PRN PRN TOP WOUND CARE; Start 09/29/17 at 17:00 Zinc Sulfate (Zinc Sulfate) 220 mg DAILY PO Last administered on 10/16/17 08: 56; Admin Dose 220 MG; Start 10/01/17 at 09:00 Methadone HCl (Methadone) 40 mg DAILY PO Last administered on 10/16/17 08:57 ; Admin Dose 40 MG; Start 10/01/17 at 09:00 Famotidine 20 mg 20 mg DAILY PO Last administered on 10/16/17 08:57; Admin Dose 20 MG; Start 10/02/17 at 09:00 Ciprofloxacin/ Dextrose (Cipro Ivpb) 200 ml @ 200 mls/hr Q12 IVPB Last administered on 10/16/17 08:57; Admin Dose 200 MLS/HR; Start 10/01/17 at 21: 00 IV Flush (NS 10 ml) 10 ml PRN PRN IV IV PROTOCOL; Start 10/02/17 at 17:30 Ascorbic Acid (Vitamin C) 500 mg BID PO Last administered on 10/16/17 08:57; Admin Dose 500 MG; Start 10/04/17 at 21:00 Multivitamins Therapeutic (Theragran) 1 tab DAILY PO Last administered on 10/16 08:57; Admin Dose 1 TAB; Start 10/05/17 at 09:00 Metoprolol Tartrate (Lopressor) 12.5 mg BID PO Last administered on 10/12/17 21:34; Admin Dose 12.5 MG; Start 10/05/17 at 21:00; Status Future Hold Acetaminophen (Tylenol Tab) 650 mg Q6H PRN PO PAIN AND OR ELEVATED TEMP Last administered on 10/09/17 21:11; Admin Dose 650 MG; Start 10/06/17 at 20:30 Ferrous Gluconate (Fergon) 325 mg BID PO Last administered on 10/16/17 08:56 ; Admin Dose 325 MG; Start 10/07/17 at 21:00 Cholecalciferol (Vitamin D) 2,000 unit DAILY PO Last administered on 08:56; Admin Dose 2,000 UNIT; Start 10/07/17 at 12:30 Apixaban (Eliquis) 10 mg BID PO Last administered on 10/16/17 08:57; Admin Dose 10 MG; Start 10/10/17 at 21:00; Stop 10/17/17 at 20:59 Apixaban (Eliquis) 5 mg BID PO ; Start 10/17/17 at 09:00 Zolpidem Tartrate (Ambien) 10 mg HS PRN PO INSOMNIA Last administered on 21:02; Admin Dose 10 MG; Start 10/11/17 at 23:00 IV Flush 10 ml 10 ml PRN PRN IV IV PROTOCOL Last administered on 10/14/17 21: 02; Admin Dose 10 ML; Start 10/14/17 at 11:00 Vancomycin HCl 650 mg/Dextrose/ Water 150 ml @ 75 mls/hr Q12H IVPB Last administered on 10/16/17 05:22; Admin Dose 75 MLS/HR; Start 10/16/17 at 05:00 Magnesium Sulfate (Magnesium Sulfate 4 Gm/100 ml) 100 ml @ 25 mls/hr ONCE IVPB Last administered on 10/16/17 12:47; Admin Dose 25 MLS/HR; Start 10/16/17 at 13:00; Stop 10/16/17 at 16:59 Magnesium Chloride (Mag 64) 128 mg BID PO Last administered on 10/16/17 12:46 ; Admin Dose 128 MG; Start 10/16/17 at 12:00 TELMA DUBON NP Oct 16, 2017 14:06
[2017-10-16] MEDS: CIPROFLOXACIN 500 MG TAB PO SCH (19:06)
[2017-10-16 20:03] VITALS: BP 92/51; RESP 18
[2017-10-16] MEDS: ZOLPIDEM 5 MG TAB PO PRN (22:26)
[2017-10-17 02:07] VITALS: BP 102/59; RESP 18
[2017-10-17] MEDS: CIPROFLOXACIN 500 MG TAB PO SCH ×2 (06:43→17:51)
[2017-10-17 07:43] VITALS: BP 93/57; RESP 20
--- NOTE | 2017-10-17 08:59 | CONS ---
Date/Time of Note Date/Time of Note DATE: 10/17/17 TIME: 08:57 Assessment/Plan Assessment/Plan Additional Assessment/Plan 1. Preoperative evaluation prior to placement of a peritoneal dialysis catheter.-negative trop x 3/EF 45-50% by echo/no sig valve lesions. Now post-op s/p Debridement of LE wound - better now. 2. Hypertension-borderline hypotension - reasonable - no symptoms. 3. Left lower extremity deep venous thrombosis - anti-coagulation in place. 4. Anemia- no active bleed, will follow. 5. Prior failed chest wall catheters. 6. cardiomyopathy-EF 45%-? due to substance abuse with amphetamines Consultation Date/Type/Reason Admit Date/Time Sep 28, 2017 at 18:48 Initial Consult Date 10/03/17 Type of Consultation: id Referring Provider: IMER MARTINEZ 24 HR Interval Summary Free Text/Dictation NO acte events - BP in good range - will monitor clinically, ROS: No fever, no chills, no nausea, no vomiting, no diarrhea/constipation No recent weight changes No chest pain, no PND, no orthopnea No dizziness, blurred vision No thirst, no heat or cold intolerance Exam/Review of Systems Vital Signs Vitals Vital Signs Date Time Temp Pulse Resp B/P Pulse Ox O2 Delivery O2 Flow Rate FiO2 10/17/17 07:43 98.8 76 20 93/57 97 Intake and Output 10/16/17 10/16/17 10/17/17 15:00 23:00 07:00 Intake Total 350 ml 1260 ml 600 ml Balance 350 ml 1260 ml 600 ml Exam General: WN/WD/NAD, AOx 3 HEENT: Unicetric/atraumatic/EOMI (follow commands) NECK: JVD elevated, no thyromegaly Lymph: no lymphadenopathy HEART: regular with no S3, II/ systolic murmur at apex LUNGS: Coarse sounds ABD: soft, NT, ND, +BS : Intact Neuro: non focal SKIN: chronic changes EXT: trace edema Results Result Diagram: 10/16/17 0453 Medications Medications Current Medications Ondansetron HCl (Zofran Inj) 4 mg Q6H PRN IV NAUSEA AND/OR VOMITING; Start at 20:00 Miscellaneous Information (Pending [facility] Order For Wound Care) This patient martin... PRN PRN XX WOUND CARE; Start 09/29/17 at 16:30 Collagenase (Santyl) 1 applic DAILY TOP Last administered on 10/15/17 09:44; Admin Dose 1 APPLIC; Start 09/30/17 at 09:00 Collagenase (Santyl) 1 applic PRN PRN TOP WOUND CARE; Start 09/29/17 at 17:00 Zinc Sulfate (Zinc Sulfate) 220 mg DAILY PO Last administered on 10/16/17 08: 56; Admin Dose 220 MG; Start 10/01/17 at 09:00 Methadone HCl (Methadone) 40 mg DAILY PO Last administered on 10/16/17 08:57 ; Admin Dose 40 MG; Start 10/01/17 at 09:00 Famotidine (Pepcid) 20 mg DAILY PO Last administered on 10/16/17 08:57; Admin Dose 20 MG; Start 10/02/17 at 09:00 IV Flush (NS 10 ml) 10 ml PRN PRN IV IV PROTOCOL Last administered on 22:26; Admin Dose 10 ML; Start 10/02/17 at 17:30 Ascorbic Acid (Vitamin C) 500 mg BID PO Last administered on 10/16/17 22:26; Admin Dose 500 MG; Start 10/04/17 at 21:00 Multivitamins Therapeutic (Theragran) 1 tab DAILY PO Last administered on 10/16 08:57; Admin Dose 1 TAB; Start 10/05/17 at 09:00 Metoprolol Tartrate (Lopressor) 12.5 mg BID PO Last administered on 10/12/17 21:34; Admin Dose 12.5 MG; Start 10/05/17 at 21:00; Status Future Hold Acetaminophen (Tylenol Tab) 650 mg Q6H PRN PO PAIN AND OR ELEVATED TEMP Last administered on 10/09/17 21:11; Admin Dose 650 MG; Start 10/06/17 at 20:30 Ferrous Gluconate (Fergon) 325 mg BID PO Last administered on 10/16/17 22:26 ; Admin Dose 325 MG; Start 10/07/17 at 21:00 Cholecalciferol (Vitamin D) 2,000 unit DAILY PO Last administered on 08:56; Admin Dose 2,000 UNIT; Start 10/07/17 at 12:30 Apixaban (Eliquis) 10 mg BID PO Last administered on 10/16/17 22:26; Admin Dose 10 MG; Start 10/10/17 at 21:00; Stop 10/17/17 at 20:59 Apixaban (Eliquis) 5 mg BID PO ; Start 10/17/17 at 09:00 Zolpidem Tartrate (Ambien) 10 mg HS PRN PO INSOMNIA Last administered on 22:26; Admin Dose 10 MG; Start 10/11/17 at 23:00 IV Flush (NS 10 ml) 10 ml PRN PRN IV IV PROTOCOL Last administered on 21:02; Admin Dose 10 ML; Start 10/14/17 at 11:00 Magnesium Chloride (Mag 64) 128 mg BID PO Last administered on 10/16/17 22:25 ; Admin Dose 128 MG; Start 10/16/17 at 12:00 Ciprofloxacin (Cipro) 500 mg BID@18 PO Last administered on 10/17/17 06:43 ; Admin Dose 500 MG; Start 10/16/17 at 18:00 LESLI JURADO MD Oct 17, 2017 08:59
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
[2017-10-17] MEDS: MAGNESIUM CHLORIDE (SR) 64 MG TAB PO SCH ×2 (09:33→22:35)
[2017-10-17] MEDS: ASCORBIC ACID 500 MG TAB PO SCH ×2 (09:34→22:36)
[2017-10-17] MEDS: FERROUS GLUCONATE (EC) 325 MG TAB PO SCH ×2 (09:34→22:36)
[2017-10-17] MEDS: MULTIVITAMINS THERAPEUTIC TAB PO SCH (09:34)
[2017-10-17] MEDS: ZINC SULFATE 220 MG CAP PO SCH (09:34)
[2017-10-17] MEDS: FAMOTIDINE 20 MG TAB PO SCH (09:34)
[2017-10-17] MEDS: CHOLECALCIFEROL 2,000 UNIT CAP PO SCH (09:35)
[2017-10-17] MEDS: METHADONE 10 MG TAB PO SCH (09:35)
[2017-10-17] MEDS: APIXABAN 5 MG TABLET PO SCH ×2 (09:35→22:35)
[2017-10-17 14:16] VITALS: BP 90/52; RESP 20
[2017-10-17] MEDS: COLLAGENASE 30 GM TUBE TOP SCH (15:01)
--- NOTE | 2017-10-17 15:01 | CONS ---
Date/Time of Note Date/Time of Note DATE: 10/17/17 TIME: 15:00 Assessment/Plan Assessment/Plan Chief Complaint/Hosp Course SUBJECTIVE: No events overnight. Looks comfortable, no fevers MICROBIOLOGY: Right leg culture growing Strep pyogenes Corynebacterium species and Pseudomonas aeruginosa. Left buttock wound culture growing Strep pyogenes. Blood culture had been negative. ANTIMICROBIALS: Ciprofloxacin. PHYSICAL EXAMINATION: GENERAL: This is a fragile, well-developed, elderly woman who is awake, in no distress. HEENT: Head atraumatic, normocephalic. Sclerae anicteric. Buccal mucosa dry. NECK: Supple. CHEST: Rise symmetrical. Breath sounds diminished to bases. HEART: S1, S2. ABDOMEN: Soft, bowel tones present. EXTREMITIES: Without cyanosis. Bilateral lower extremities: Chronic wounds are more on the right. Left leg with an area of fluctuance below knee. ASSESSMENT: 1. Status post sepsis with fevers, tachycardia and encephalopathy. 2. Multiple infected wounds, questionable left leg abscess==> looks better. 3. Chronic obstructive pulmonary disease. 4. Cachexia. 5. History of IV drug abuse. 6. RLE chronic wound s/p i&d 10/09/17 PLAN: The patient remains stable, continue local wound care per podiatry rec-s , complete abx DW staff Problems: Consultation Date/Type/Reason Admit Date/Time Sep 28, 2017 at 18:48 Type of Consultation: id Referring Provider: IMER MARTINEZ Exam/Review of Systems Vital Signs Vitals Vital Signs Date Time Temp Pulse Resp B/P Pulse Ox O2 Delivery O2 Flow Rate FiO2 10/17/17 14:16 98.0 85 20 90/52 98 Intake and Output 10/16/17 10/16/17 10/17/17 15:00 23:00 07:00 Intake Total 350 ml 1260 ml 600 ml Balance 350 ml 1260 ml 600 ml Results Result Diagram: 10/16/17 0453 Medications Medications Current Medications Ondansetron HCl (Zofran Inj) 4 mg Q6H PRN IV NAUSEA AND/OR VOMITING; Start at 20:00 Miscellaneous Information (Pending Santyl Order For Wound Care) This patient martin... PRN PRN XX WOUND CARE; Start 09/29/17 at 16:30 Collagenase (Santyl) 1 applic DAILY TOP Last administered on 10/15/17 09:44; Admin Dose 1 APPLIC; Start 09/30/17 at 09:00 Collagenase (Santyl) 1 applic PRN PRN TOP WOUND CARE; Start 09/29/17 at 17:00 Zinc Sulfate (Zinc Sulfate) 220 mg DAILY PO Last administered on 10/17/17 09: 34; Admin Dose 220 MG; Start 10/01/17 at 09:00 Methadone HCl (Methadone) 40 mg DAILY PO Last administered on 10/17/17 09:35 ; Admin Dose 40 MG; Start 10/01/17 at 09:00 Famotidine (Pepcid) 20 mg DAILY PO Last administered on 10/17/17 09:34; Admin Dose 20 MG; Start 10/02/17 at 09:00 IV Flush (NS 10 ml) 10 ml PRN PRN IV IV PROTOCOL Last administered on 22:26; Admin Dose 10 ML; Start 10/02/17 at 17:30 Ascorbic Acid (Vitamin C) 500 mg BID PO Last administered on 10/17/17 09:34; Admin Dose 500 MG; Start 10/04/17 at 21:00 Multivitamins Therapeutic (Theragran) 1 tab DAILY PO Last administered on 10/17 09:34; Admin Dose 1 TAB; Start 10/05/17 at 09:00 Metoprolol Tartrate (Lopressor) 12.5 mg BID PO Last administered on 10/12/17 21:34; Admin Dose 12.5 MG; Start 10/05/17 at 21:00; Status Future Hold Acetaminophen (Tylenol Tab) 650 mg Q6H PRN PO PAIN AND OR ELEVATED TEMP Last administered on 10/09/17 21:11; Admin Dose 650 MG; Start 10/06/17 at 20:30 Ferrous Gluconate (Fergon) 325 mg BID PO Last administered on 10/17/17 09:34 ; Admin Dose 325 MG; Start 10/07/17 at 21:00 Cholecalciferol (Vitamin D) 2,000 unit DAILY PO Last administered on 09:35; Admin Dose 2,000 UNIT; Start 10/07/17 at 12:30 Apixaban (Eliquis) 5 mg BID PO Last administered on 10/17/17 09:35; Admin Dose 5 MG; Start 10/17/17 at 09:00 Zolpidem Tartrate (Ambien) 10 mg HS PRN PO INSOMNIA Last administered on 22:26; Admin Dose 10 MG; Start 10/11/17 at 23:00 IV Flush (NS 10 ml) 10 ml PRN PRN IV IV PROTOCOL Last administered on 21:02; Admin Dose 10 ML; Start 10/14/17 at 11:00 Magnesium Chloride (Mag 64) 128 mg BID PO Last administered on 10/17/17 09:33 ; Admin Dose 128 MG; Start 10/16/17 at 12:00 Ciprofloxacin (Cipro) 500 mg BID@,18 PO Last administered on 10/17/17 06:43 ; Admin Dose 500 MG; Start 10/16/17 at 18:00 TELMA DUBON NP Oct 17, 2017 15:01
[2017-10-17 19:58] VITALS: BP 101/58; RESP 18
[2017-10-17] MEDS: ZOLPIDEM 5 MG TAB PO PRN (22:40)
[2017-10-18 02:27] VITALS: BP 96/55; RESP 18
[2017-10-18] MEDS: CIPROFLOXACIN 500 MG TAB PO SCH ×2 (06:47→17:16)
[2017-10-18 07:32] VITALS: BP 100/59; RESP 18
[2017-10-18] MEDS: ZINC SULFATE 220 MG CAP PO SCH (08:55)
[2017-10-18] MEDS: FERROUS GLUCONATE (EC) 325 MG TAB PO SCH ×2 (08:55→20:07)
[2017-10-18] MEDS: MAGNESIUM CHLORIDE (SR) 64 MG TAB PO SCH ×2 (08:55→20:07)
[2017-10-18] MEDS: CHOLECALCIFEROL 2,000 UNIT CAP PO SCH (08:55)
[2017-10-18] MEDS: APIXABAN 5 MG TABLET PO SCH ×2 (08:55→20:07)
[2017-10-18] MEDS: MULTIVITAMINS THERAPEUTIC TAB PO SCH (08:55)
[2017-10-18] MEDS: FAMOTIDINE 20 MG TAB PO SCH (08:55)
[2017-10-18] MEDS: ASCORBIC ACID 500 MG TAB PO SCH ×2 (08:55→20:07)
[2017-10-18] MEDS: METHADONE 10 MG TAB PO SCH (08:56)
[2017-10-18] MEDS: COLLAGENASE 30 GM TUBE TOP SCH (08:58)
--- NOTE | 2017-10-18 11:21 | CONS ---
Date/Time of Note Date/Time of Note DATE: 10/18/17 TIME: 11:20 Assessment/Plan Assessment/Plan Additional Assessment/Plan 1. Preoperative evaluation prior to placement of a peritoneal dialysis catheter.-negative trop x 3/EF 45-50% by echo/no sig valve lesions. Now post-op s/p Debridement of LE wound - better now. BETTER NOW. Ambulating with PT. 2. Hypertension-borderline hypotension - reasonable - no symptoms. CONTROLLED. 3. Left lower extremity deep venous thrombosis - anti-coagulation in place. 4. Anemia- no active bleed, will follow. H/H stable. 5. Prior failed chest wall catheters. 6. cardiomyopathy-EF 45%-? due to substance abuse with amphetamines Consultation Date/Type/Reason Admit Date/Time Sep 28, 2017 at 18:48 Initial Consult Date 10/03/17 Type of Consultation: id Referring Provider: IMER MARTINEZ 24 HR Interval Summary Free Text/Dictation NO acute events - BP stable - ambulating with PT. ROS: No fever, no chills, no nausea, no vomiting, no diarrhea/constipation No recent weight changes No chest pain, no PND, no orthopnea No dizziness, blurred vision No thirst, no heat or cold intolerance Exam/Review of Systems Vital Signs Vitals Vital Signs Date Time Temp Pulse Resp B/P Pulse Ox O2 Delivery O2 Flow Rate FiO2 10/18/17 07:32 97.9 74 18 100/59 10/18/17 02:27 97 Intake and Output 10/17/17 10/17/17 10/18/17 14:59 22:59 06:59 Intake Total 1800 ml 800 ml Balance 1800 ml 800 ml Exam General: WN/WD/NAD, AOx 3 HEENT: Unicetric/atraumatic/EOMI (follow commands) NECK: JVD elevated, no thyromegaly Lymph: no lymphadenopathy HEART: regular with no S3, II/ systolic murmur at apex LUNGS: Coarse sounds ABD: soft, NT, ND, +BS : Intact Neuro: non focal SKIN: chronic changes EXT: trace edema Results Result Diagram: 10/16/17 0453 Medications Medications Current Medications Ondansetron HCl (Zofran Inj) 4 mg Q6H PRN IV NAUSEA AND/OR VOMITING; Start at 20:00 Miscellaneous Information (Pending Santyl Order For Wound Care) This patient martin... PRN PRN XX WOUND CARE; Start 09/29/17 at 16:30 Collagenase (Santyl) 1 applic DAILY TOP Last administered on 10/18/17 08:58; Admin Dose 1 APPLIC; Start 09/30/17 at 09:00 Collagenase (Santyl) 1 applic PRN PRN TOP WOUND CARE; Start 09/29/17 at 17:00 Zinc Sulfate (Zinc Sulfate) 220 mg DAILY PO Last administered on 10/18/17 08: 55; Admin Dose 220 MG; Start 10/01/17 at 09:00 Methadone HCl (Methadone) 40 mg DAILY PO Last administered on 10/18/17 08:56 ; Admin Dose 40 MG; Start 10/01/17 at 09:00 Famotidine (Pepcid) 20 mg DAILY PO Last administered on 10/18/17 08:55; Admin Dose 20 MG; Start 10/02/17 at 09:00 IV Flush (NS 10 ml) 10 ml PRN PRN IV IV PROTOCOL Last administered on 22:26; Admin Dose 10 ML; Start 10/02/17 at 17:30 Ascorbic Acid (Vitamin C) 500 mg BID PO Last administered on 10/18/17 08:55; Admin Dose 500 MG; Start 10/04/17 at 21:00 Multivitamins Therapeutic (Theragran) 1 tab DAILY PO Last administered on 10/18 08:55; Admin Dose 1 TAB; Start 10/05/17 at 09:00 Metoprolol Tartrate (Lopressor) 12.5 mg BID PO Last administered on 10/12/17 21:34; Admin Dose 12.5 MG; Start 10/05/17 at 21:00; Status Future Hold Acetaminophen (Tylenol Tab) 650 mg Q6H PRN PO PAIN AND OR ELEVATED TEMP Last administered on 10/09/17 21:11; Admin Dose 650 MG; Start 10/06/17 at 20:30 Ferrous Gluconate (Fergon) 325 mg BID PO Last administered on 10/18/17 08:55 ; Admin Dose 325 MG; Start 10/07/17 at 21:00 Cholecalciferol (Vitamin D) 2,000 unit DAILY PO Last administered on 08:55; Admin Dose 2,000 UNIT; Start 10/07/17 at 12:30 Apixaban (Eliquis) 5 mg BID PO Last administered on 10/18/17 08:55; Admin Dose 5 MG; Start 10/17/17 at 09:00 Zolpidem Tartrate (Ambien) 10 mg HS PRN PO INSOMNIA Last administered on 22:40; Admin Dose 10 MG; Start 10/11/17 at 23:00 IV Flush (NS 10 ml) 10 ml PRN PRN IV IV PROTOCOL Last administered on 21:02; Admin Dose 10 ML; Start 10/14/17 at 11:00 Magnesium Chloride (Mag 64) 128 mg BID PO Last administered on 10/18/17 08:55 ; Admin Dose 128 MG; Start 10/16/17 at 12:00 Ciprofloxacin (Cipro) 500 mg BID@,18 PO Last administered on 10/18/17 06:47 ; Admin Dose 500 MG; Start 10/16/17 at 18:00 LESLI JURADO MD Oct 18, 2017 11:21
[2017-10-18 13:35] VITALS: BP 93/59; RESP 18
--- NOTE | 2017-10-18 15:49 | PN ---
Date/Time of Note Date/Time of Note DATE: 10/18/17 TIME: 15:46 Assessment/Plan Lines/Catheters IV Catheter Type (from Nrs): PICC Line Alarcon in Place (from Nrs): No Assessment/Plan Chief Complaint/Hosp Course -Bilateral lower extremity atherosclerosis with right lower extremity ulcer: It seems the patient has some component of atherosclerotic disease; however, the patient does have faint pedal pulses in which my suspicion would be low for having a nonhealing wound as a result of her atherosclerotic disease. Her noninvasive vascular studies did not demonstrate flow limiting infrainguinal stenosis. It seems the patient's noncompliance and not coming to the hospital and receiving medical care may be the main issue of her ulceration that has worsened over the past month. - S/P debridement and Acell application -Do Not remove dressing for 10 days - Will schedule patient for debridement on Monday10/23/2017 -Left IJ DVT: Continue anticoagulation, her being compliant and coverage by her insurance may be an issue. Recommend case therapist evaluation -Will need patient to be cleared [facility] -Continue with antibiotics. -Discussed with the patient regarding smoking cessation and IV drug abuse cessation -Optimize vascular status (BP meds, diet, nutrition, exercise, sugar control, antiplatelets). -Thank you for allowing me to partake in the care of your patient. Please call with any questions. Problems: Subjective 24 Hr Interval Summary no new vascular events overnight Exam/Review of Systems Vital Signs Vitals Vital Signs Date Time Temp Pulse Resp B/P Pulse Ox O2 Delivery O2 Flow Rate FiO2 10/18/17 13:35 97.9 89 18 93/59 95 Intake and Output 10/17/17 10/17/17 10/18/17 15:00 23:00 07:00 Intake Total 1800 ml 800 ml Balance 1800 ml 800 ml Exam Free Text/Dictation GENERAL: Alert and oriented x3. PULMONARY: Clear to auscultation bilaterally. CARDIOVASCULAR: S1, S2 present. ABDOMEN: Soft, nontender, nondistended. Bowel sounds positive. RIGHT LOWER EXTREMITY: Palpable femoral pulse, faint pedal pulse. Motor, sensory intact. Cap refill 3 seconds. lower leg dressing intact and dry LEFT LOWER EXTREMITY: Palpable femoral pulse, faint pedal pulse. Motor, sensory intact. Cap refill 3 seconds. Results Result Diagram: 10/16/17 0453 OSEAS MARTINEZ MD Oct 18, 2017 15:49
--- NOTE | 2017-10-18 19:32 | CONS ---
Date/Time of Note Date/Time of Note DATE: 10/18/17 TIME: 19:30 Assessment/Plan Assessment/Plan Chief Complaint/Hosp Course SUBJECTIVE: No events overnight. Looks comfortable, no fevers MICROBIOLOGY: Right leg culture growing Strep pyogenes Corynebacterium species and Pseudomonas aeruginosa. Left buttock wound culture growing Strep pyogenes. Blood culture had been negative. ANTIMICROBIALS: Ciprofloxacin. PHYSICAL EXAMINATION: GENERAL: This is a fragile, well-developed, elderly woman who is awake, in no distress. HEENT: Head atraumatic, normocephalic. Sclerae anicteric. Buccal mucosa dry. NECK: Supple. CHEST: Rise symmetrical. Breath sounds diminished to bases. HEART: S1, S2. ABDOMEN: Soft, bowel tones present. EXTREMITIES: Without cyanosis. Bilateral lower extremities: Chronic wounds are more on the right. Left leg with an area of fluctuance below knee. ASSESSMENT: 1. Status post sepsis with fevers, tachycardia and encephalopathy. 2. Multiple infected wounds, questionable left leg abscess==> looks better. 3. Chronic obstructive pulmonary disease. 4. Cachexia. 5. History of IV drug abuse. 6. RLE chronic wound s/p i&d 10/09/17 PLAN: The patient remains unchanged, continue lpresent care, pendong repeat RLE debridement DW staff Problems: Consultation Date/Type/Reason Admit Date/Time Sep 28, 2017 at 18:48 Type of Consultation: id Referring Provider: IMER MARTINEZ Exam/Review of Systems Vital Signs Vitals Vital Signs Date Time Temp Pulse Resp B/P Pulse Ox O2 Delivery O2 Flow Rate FiO2 10/18/17 13:35 97.9 89 18 93/59 95 Intake and Output 10/17/17 10/17/17 10/18/17 15:00 23:00 07:00 Intake Total 1800 ml 800 ml Balance 1800 ml 800 ml Results Result Diagram: 10/16/17 0453 Medications Medications Current Medications Ondansetron HCl (Zofran Inj) 4 mg Q6H PRN IV NAUSEA AND/OR VOMITING; Start at 20:00 Miscellaneous Information (Pending Santyl Order For Wound Care) This patient martin... PRN PRN XX WOUND CARE; Start 09/29/17 at 16:30 Collagenase (Santyl) 1 applic DAILY TOP Last administered on 10/18/17t 08:58; Admin Dose 1 APPLIC; Start 09/30/17 at 09:00 Collagenase (Santyl) 1 applic PRN PRN TOP WOUND CARE; Start 09/29/17 at 17:00 Zinc Sulfate (Zinc Sulfate) 220 mg DAILY PO Last administered on 10/18/17 08: 55; Admin Dose 220 MG; Start 10/01/17 at 09:00 Methadone HCl (Methadone) 40 mg DAILY PO Last administered on 10/18/17 08:56 ; Admin Dose 40 MG; Start 10/01/17 at 09:00 Famotidine (Pepcid) 20 mg DAILY PO Last administered on 10/18/17 08:55; Admin Dose 20 MG; Start 10/02/17 at 09:00 IV Flush (NS 10 ml) 10 ml PRN PRN IV IV PROTOCOL Last administered on 22:26; Admin Dose 10 ML; Start 10/02/17 at 17:30 Ascorbic Acid (Vitamin C) 500 mg BID PO Last administered on 10/18/17 08:55; Admin Dose 500 MG; Start 10/04/17 at 21:00 Multivitamins Therapeutic (Theragran) 1 tab DAILY PO Last administered on 10/18 08:55; Admin Dose 1 TAB; Start 10/05/17 at 09:00 Metoprolol Tartrate (Lopressor) 12.5 mg BID PO Last administered on 10/12/17 21:34; Admin Dose 12.5 MG; Start 10/05/17 at 21:00; Status Future Hold Acetaminophen (Tylenol Tab) 650 mg Q6H PRN PO PAIN AND OR ELEVATED TEMP Last administered on 10/09/17 21:11; Admin Dose 650 MG; Start 10/06/17 at 20:30 Ferrous Gluconate (Fergon) 325 mg BID PO Last administered on 10/18/17 08:55 ; Admin Dose 325 MG; Start 10/07/17 at 21:00 Cholecalciferol (Vitamin D) 2,000 unit DAILY PO Last administered on 08:55; Admin Dose 2,000 UNIT; Start 10/07/17 at 12:30 Apixaban (Eliquis) 5 mg BID PO Last administered on 10/18/17 08:55; Admin Dose 5 MG; Start 10/17/17 at 09:00 Zolpidem Tartrate (Ambien) 10 mg HS PRN PO INSOMNIA Last administered on 22:40; Admin Dose 10 MG; Start 10/11/17 at 23:00 IV Flush (NS 10 ml) 10 ml PRN PRN IV IV PROTOCOL Last administered on 21:02; Admin Dose 10 ML; Start 10/14/17 at 11:00 Magnesium Chloride (Mag 64) 128 mg BID PO Last administered on 10/18/17 08:55 ; Admin Dose 128 MG; Start 10/16/17 at 12:00 Ciprofloxacin (Cipro) 500 mg BID@06,18 PO Last administered on 10/18/17 17:16 ; Admin Dose 500 MG; Start 10/16/17 at 18:00 TELMA DUBON NP Oct 18, 2017 19:32
[2017-10-18 20:00] VITALS: BP 101/58; RESP 20
[2017-10-18] MEDS: ZOLPIDEM 5 MG TAB PO PRN (22:06)
[2017-10-19 02:00] VITALS: BP 105/67; RESP 20
[2017-10-19] MEDS: CIPROFLOXACIN 500 MG TAB PO SCH ×2 (05:25→18:14)
[2017-10-19 07:42] VITALS: BP 106/60; RESP 16
--- NOTE | 2017-10-19 09:36 | CONS ---
Date/Time of Note Date/Time of Note DATE: 10/19/17 TIME: 09:35 Assessment/Plan Assessment/Plan Additional Assessment/Plan 1. Preoperative evaluation prior to placement of a peritoneal dialysis catheter.-negative trop x 3/EF 45-50% by echo/no sig valve lesions. Now post-op s/p Debridement of LE wound - better now. BETTER NOW. Ambulating with PT. Dispo plans in progress. 2. Hypertension-borderline hypotension - reasonable - no symptoms. CONTROLLED. 3. Left lower extremity deep venous thrombosis - anti-coagulation in place. BETTER. 4. Anemia- no active bleed, will follow. H/H stable. 5. Prior failed chest wall catheters. 6. cardiomyopathy-EF 45%-? due to substance abuse with amphetamines Consultation Date/Type/Reason Admit Date/Time Sep 28, 2017 at 18:48 Initial Consult Date 10/03/17 Type of Consultation: id Referring Provider: IMER MARTINEZ 24 HR Interval Summary Free Text/Dictation NO acute events - dispo plans in progress. ROS: No fever, no chills, no nausea, no vomiting, no diarrhea/constipation No recent weight changes No chest pain, no PND, no orthopnea No dizziness, blurred vision No thirst, no heat or cold intolerance Exam/Review of Systems Vital Signs Vitals Vital Signs Date Time Temp Pulse Resp B/P Pulse Ox O2 Delivery O2 Flow Rate FiO2 10/19/17 07:42 98.5 78 16 106/60 94 Intake and Output 10/18/17 10/18/17 10/19/17 15:00 23:00 07:00 Intake Total 960 ml Output Total 800 ml Balance 160 ml Exam General: WN/WD/NAD, AOx 2-3 HEENT: Unicetric/atraumatic/EOMI (follows commands) NECK: JVD elevated, no thyromegaly Lymph: no lymphadenopathy HEART: regular with no S3, II/ systolic murmur at apex LUNGS: Coarse sounds ABD: soft, NT, ND, +BS : Intact Neuro: non focal SKIN: chronic changes EXT: trace edema Results Result Diagram: 10/16/17 0453 Medications Medications Current Medications Ondansetron HCl (Zofran Inj) 4 mg Q6H PRN IV NAUSEA AND/OR VOMITING; Start at 20:00 Miscellaneous Information (Pending Santyl Order For Wound Care) This patient martin... PRN PRN XX WOUND CARE; Start 09/29/17 at 16:30 Collagenase (Santyl) 1 applic DAILY TOP Last administered on 10/18/17 08:58; Admin Dose 1 APPLIC; Start 09/30/17 at 09:00 Collagenase (Santyl) 1 applic PRN PRN TOP WOUND CARE; Start 09/29/17 at 17:00 Zinc Sulfate (Zinc Sulfate) 220 mg DAILY PO Last administered on 10/18/17 08: 55; Admin Dose 220 MG; Start 10/01/17 at 09:00 Methadone HCl (Methadone) 40 mg DAILY PO Last administered on 10/18/17 08:56 ; Admin Dose 40 MG; Start 10/01/17 at 09:00 Famotidine (Pepcid) 20 mg DAILY PO Last administered on 10/18/17 08:55; Admin Dose 20 MG; Start 10/02/17 at 09:00 IV Flush (NS 10 ml) 10 ml PRN PRN IV IV PROTOCOL Last administered on 22:26; Admin Dose 10 ML; Start 10/02/17 at 17:30 Ascorbic Acid (Vitamin C) 500 mg BID PO Last administered on 10/18/17 20:07; Admin Dose 500 MG; Start 10/04/17 at 21:00 Multivitamins Therapeutic (Theragran) 1 tab DAILY PO Last administered on 10/18 08:55; Admin Dose 1 TAB; Start 10/05/17 at 09:00 Metoprolol Tartrate (Lopressor) 12.5 mg BID PO Last administered on 10/12/17 21:34; Admin Dose 12.5 MG; Start 10/05/17 at 21:00; Status Future Hold Acetaminophen (Tylenol Tab) 650 mg Q6H PRN PO PAIN AND OR ELEVATED TEMP Last administered on 10/09/17 21:11; Admin Dose 650 MG; Start 10/06/17 at 20:30 Ferrous Gluconate (Fergon) 325 mg BID PO Last administered on 10/18/17 20:07 ; Admin Dose 325 MG; Start 10/07/17 at 21:00 Cholecalciferol (Vitamin D) 2,000 unit DAILY PO Last administered on 08:55; Admin Dose 2,000 UNIT; Start 10/07/17 at 12:30 Apixaban (Eliquis) 5 mg BID PO Last administered on 10/18/17 20:07; Admin Dose 5 MG; Start 10/17/17 at 09:00 Zolpidem Tartrate (Ambien) 10 mg HS PRN PO INSOMNIA Last administered on 22:06; Admin Dose 10 MG; Start 10/11/17 at 23:00 IV Flush (NS 10 ml) 10 ml PRN PRN IV IV PROTOCOL Last administered on 21:02; Admin Dose 10 ML; Start 10/14/17 at 11:00 Magnesium Chloride (Mag 64) 128 mg BID PO Last administered on 10/18/17 20:07 ; Admin Dose 128 MG; Start 10/16/17 at 12:00 Ciprofloxacin (Cipro) 500 mg BID@,18 PO Last administered on 10/19/17 05:25 ; Admin Dose 500 MG; Start 10/16/17 at 18:00 LESLI JURADO MD Oct 19, 2017 09:36
[2017-10-19] MEDS: CHOLECALCIFEROL 2,000 UNIT CAP PO SCH (09:56)
[2017-10-19] MEDS: MULTIVITAMINS THERAPEUTIC TAB PO SCH (09:56)
[2017-10-19] MEDS: APIXABAN 5 MG TABLET PO SCH (09:56)
[2017-10-19] MEDS: ASCORBIC ACID 500 MG TAB PO SCH (09:56)
[2017-10-19] MEDS: FERROUS GLUCONATE (EC) 325 MG TAB PO SCH (09:56)
[2017-10-19] MEDS: MAGNESIUM CHLORIDE (SR) 64 MG TAB PO SCH (09:56)
[2017-10-19] MEDS: ZINC SULFATE 220 MG CAP PO SCH (09:57)
[2017-10-19] MEDS: FAMOTIDINE 20 MG TAB PO SCH (09:57)
[2017-10-19] MEDS: COLLAGENASE 30 GM TUBE TOP SCH (09:58)
[2017-10-19] MEDS: METHADONE 10 MG TAB PO SCH (10:03)
--- NOTE | 2017-10-19 11:56 | PDOCDIS ---
Discharge Instructions CONDITION Patient Condition: Stable HOME CARE INSTRUCTIONS: Special Diet: regular FOLLOW UP/APPOINTMENTS Follow-up Plan Follow-up with amputation prevention clinic with for next debridement scheduled on 10/23/2017. 2.Follow up with primary care physician in 1 week If you don't have one please let someone know, we can give you resources that may help you pick one. You may also call your insurance company to assign one to you. Review your medication list with your nurse before leaving and if you need new prescriptions please let your nurse know. I may have made changes to your home medications or given you new prescriptions, please let your primary doctor know as well. Stay compliant with your medications and report any side effects to your PCP or pharmacist. Return to the ER if you have any concerns and cannot reach your doctors or call your insurance company, they usually have a nurse that can help you. 3. Call 911 or go to the nearest emergency room if experiencing loss of consciousness, dizziness, chest pain, shortness of breath, vomiting/abdominal pain, speech difficulties, motor weakness or any unusual symptoms. OTHER ORDERS: Other Orders: Nursing: Right lower leg Wound care per 's order SHARA GODOY NP Oct 19, 2017 11:56
[2017-10-19] MEDS ORDERED: ZINC220C5 PO (12:02)
[2017-10-19] MEDS ORDERED: METH10TA2 PO (12:02)
[2017-10-19] MEDS ORDERED: APIX5TAB PO (12:02)
[2017-10-19] MEDS ORDERED: MULTI PO (12:02)
[2017-10-19] MEDS ORDERED: CIPR500T4 PO (12:02)
[2017-10-19] MEDS ORDERED: SAN30GM TOP (12:02)
[2017-10-19] MEDS ORDERED: CHOL200073 PO (12:02)
[2017-10-19] MEDS ORDERED: SLOMAG PO (12:02)
[2017-10-19] MEDS ORDERED: ASC500 PO (12:02)
[2017-10-19] MEDS ORDERED: NYSTATIN 30 GM POWDER BTL TOP SCH (12:30)
[2017-10-19 13:07] VITALS: BP 96/57; RESP 14
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
[2017-10-19 18:30] VITALS: BP 114/78; PULSE 80; RESP 18
--- NOTE | 2017-10-19 21:10 | CONS ---
Date/Time of Note Date/Time of Note DATE: 10/19/17 TIME: 21:09 Assessment/Plan Assessment/Plan Chief Complaint/Hosp Course SUBJECTIVE: No events overnight. Awake, denies pain, no fevers. Looks comfortable MICROBIOLOGY: Right leg culture growing Strep pyogenes Corynebacterium species and Pseudomonas aeruginosa. Left buttock wound culture growing Strep pyogenes. Blood culture had been negative. ANTIMICROBIALS: Ciprofloxacin. PHYSICAL EXAMINATION: GENERAL: This is a fragile, well-developed, elderly woman who is awake, in no distress. HEENT: Head atraumatic, normocephalic. Sclerae anicteric. Buccal mucosa dry. NECK: Supple. CHEST: Rise symmetrical. Breath sounds diminished to bases. HEART: S1, S2. ABDOMEN: Soft, bowel tones present. EXTREMITIES: Without cyanosis. Bilateral lower extremities: Chronic wounds are more on the right. Left leg with an area of fluctuance below knee. ASSESSMENT: 1. Status post sepsis with fevers, tachycardia and encephalopathy. 2. Multiple infected wounds, questionable left leg abscess==> looks better. 3. Chronic obstructive pulmonary disease. 4. Cachexia. 5. History of IV drug abuse. 6. RLE chronic wound s/p i&d 10/09/17 PLAN: The patient remains unchanged, continue present care, pending dc [facility] staff Problems: Consultation Date/Type/Reason Admit Date/Time Sep 28, 2017 at 18:48 Type of Consultation: id Referring Provider: IMER MARTINEZ Exam/Review of Systems Vital Signs Vitals Vital Signs Date Time Temp Pulse Resp B/P Pulse Ox O2 Delivery O2 Flow Rate FiO2 10/19/17 18:30 80 18 114/78 10/19/17 13:07 97.5 98 Intake and Output 10/18/17 10/18/17 10/19/17 15:00 23:00 07:00 Intake Total 960 ml Output Total 800 ml Balance 160 ml Results Result Diagram: 10/16/17 [id number] TELMA DUBON NP Oct 19, 2017 21:10
== END 2017-10-19 18:45 | DRG 853 ==
LOC: TEL 18:48 → MS4 19:02 → MS2 10-01 16:25
PROVIDERS: ADMIT Internal Medicine; ATTEND Internal Medicine
PROC: 02HV33Z Insertion of Infusion Device into Superior Vena Cava, Percutaneous Approach (ICD-10-PCS; 2017-10-02)
PROC: B548ZZA Ultrasonography of Superior Vena Cava, Guidance (ICD-10-PCS; 2017-10-02)
PROC: 30233N1 Transfusion of Nonautologous Red Blood Cells into Peripheral Vein, Percutaneous Approach (ICD-10-PCS; 2017-10-04)
PROC: 0JBN0ZZ Excision of Right Lower Leg Subcutaneous Tissue and Fascia, Open Approach (ICD-10-PCS; principal; 2017-10-09 10:30)
PROC: 02HV33Z Insertion of Infusion Device into Superior Vena Cava, Percutaneous Approach (ICD-10-PCS; 2017-10-14)
PROC: B548ZZA Ultrasonography of Superior Vena Cava, Guidance (ICD-10-PCS; 2017-10-14)
DX: A41.9 Sepsis, unspecified organism (principal); G92 Toxic encephalopathy; I42.7 Cardiomyopathy due to drug and external agent; I67.89 Other cerebrovascular disease; I82.C12 Acute embolism and thrombosis of left internal jugular vein; E44.1 Mild protein-calorie malnutrition; F11.20 Opioid dependence, uncomplicated; L03.115 Cellulitis of right lower limb; L03.116 Cellulitis of left lower limb; Z68.1 Body mass index [BMI] 19.9 or less, adult; L97.919 Non-pressure chronic ulcer of unspecified part of right lower leg with unspecified severity; F15.10 Other stimulant abuse, uncomplicated; D50.9 Iron deficiency anemia, unspecified; J44.9 Chronic obstructive pulmonary disease, unspecified; F17.200 Nicotine dependence, unspecified, uncomplicated; B18.2 Chronic viral hepatitis C; Z87.828 Personal history of other (healed) physical injury and trauma; E78.6 Lipoprotein deficiency; R62.7 Adult failure to thrive; Z59.0 Homelessness; I10 Essential (primary) hypertension; I70.202 Unspecified atherosclerosis of native arteries of extremities, left leg; I70.239 Atherosclerosis of native arteries of right leg with ulceration of unspecified site; E83.42 Hypomagnesemia; B96.5 Pseudomonas (aeruginosa) (mallei) (pseudomallei) as the cause of diseases classified elsewhere; B95.0 Streptococcus, group A, as the cause of diseases classified elsewhere; B96.89 Other specified bacterial agents as the cause of diseases classified elsewhere; E55.9 Vitamin D deficiency, unspecified; S31.829A Unspecified open wound of left buttock, initial encounter; X58.XXXA Exposure to other specified factors, initial encounter
CPT/HCPCS: 36430; 36569; 36600; 70450; 71010; 76536; 76937; 80048; 80053; 80061; 80202; 80307; 81003; 82140; 82270; 82306; 82565; 82728; 82746; 82803; 83036; 83540; 83615; 83690; 83735; 84100; 84439; 84443; 84480; 84484; 84520; 85025; 85610; 85730; 86592; 86703; 86704; 86709; 86803; 86850; 86900; 86901; 86920; 87040; 87045; 87070; 87075; 87340; 90686; 93005; 93306; 93922; 93970; 93971; 97110; 97116; 97162; 97530; J0295; J0692; J0744; J1650; J2185; J2916; J2997; J3010; J3370; J3475; J3480; J7030; J7040; J7042; P9016; Q4118

== ENCOUNTER 2018-02-15 12:18 | Emergency (ER) | END 2018-02-15 22:35 | disposition home or self-care (01) ==